=== PATIENT | male | born 1940 | race Caucasian/White ===

== ENCOUNTER 2016-06-10 23:02 | Inpatient (IN) | payer MEDICARE ==
[~2016-06-10] VITALS: Ht 172.7 cm; Wt 93.0 kg
[~2016-06-10 23:02] MED LIST: AMOX1TAB61 PO; APIX5TAB PO; CEPH-263 PO; FLUT1DIS IH; FURO-68 PO; INSU100V5 SQ; LORA0.5T PO; LOSA50TA6 PO; NPH,100V SQ; POTA10CA PO; SIMV40TA3 PO; TAMS0.4C2 PO; Vancomycin Hcl PO; ZOLP5TAB5 PO
--- NOTE | 2016-06-10 23:40 | PHYS DOC ---
Past Medical History Past Medical History: Diabetes-Type II, High Cholesterol Additional Past Medical Histor: multiple hip dislocations, DVT behind left knee , PE, C DIFF, SBO Past Surgical History: Colectomy, Hip Replacement Additional Past Surgical Histo: left hip, expl la with enterotomy and foreign body removal,back, cataract Alcohol Use: None Drug Use: None Adult General Chief Complaint Chief Complaint: LOWER EXT PAIN HPI HPI Patient is a 75 year old male who presents with atraumatic right leg pain that started a few hours prior to arrival while walking at home. He denies injury. Pain is constant and achy, but worse with use of leg. States his whole leg hurts. He notes mild general abdominal swelling over the past 2 days with minimal discomfort. States he is able to eat and drink. Notes normal BMs and urination. He denies numbness, tingling, weakness, back pain, swelling from baseline chronic swelling, rash, fever or chills, bloody stools. Continues to take eliquis for DVT/PE history. Review of Systems Review of Systems Constitutional: Denies fever or chills [] Eyes: Denies change in visual acuity, redness, or eye pain [] HENT: Denies nasal congestion or sore throat [] Respiratory: Denies cough or shortness of breath [] Cardiovascular: No additional information not addressed in HPI [] GI: Denies abdominal pain, nausea, vomiting, bloody stools or diarrhea [] : Denies dysuria or hematuria [] Musculoskeletal: Denies back pain or joint pain [] Integument: Denies rash or skin lesions [] Neurologic: Denies headache, focal weakness or sensory changes [] Endocrine: Denies polyuria or polydipsia [] Current Medications Current Medications Current Medications Medications (Trade) Dose Ordered Sig/[place] Start Time Stop Time Status Last Admin Dose Admin Fentanyl Citrate (Fentanyl 2ml Vial) 25 mcg PRN Q15MIN PRN 06/10/16 23:30 06/11/16 23:29 06/11/16 00:08 25 MCG Info (Do NOT chart on this entry -- for MONITORING) 1 each PRN DAILY PRN 06/11/16 01:30 06/13/16 01:29 Iohexol (Omnipaque 300 Mg/ml) 60 ml 1X ONCE 06/11/16 01:30 06/11/16 01:31 DC 06/11/16 01:06 60 ML Allergies Allergies Allergies Coded Allergies Type Severity Reaction Last Updated Verified No Known Drug Allergies 07/30/13 No Physical Exam Physical Exam Constitutional: Well developed, well nourished, no acute distress, non-toxic appearance. [] HENT: Normocephalic, atraumatic, bilateral external ears normal, oropharynx moist, nose normal. [] Eyes: PERRLA, EOMI. [] Neck: Normal range of motion, supple. [] Cardiovascular:Heart rate regular rhythm [] Lungs & Thorax: Bilateral breath sounds clear to auscultation [] Abdomen: Bowel sounds normal, soft, no tenderness. Midline surgical scar well appearing. Rectal exam nontender with minimal light brown stool in vault [] Skin: Warm, dry, no erythema, no rash. [] Back: No tenderness, no CVA tenderness. [] Extremities: Has well appearing ulcer to right heel, No discoloration, No tenderness other than to heel ulcer, ROM intact, bilateral 2+ LE edema, bilateral DP pulses equal and 2+. Compartments soft to bilateral lower extremities. [] Neurologic: Alert and oriented X 3, normal motor function, normal sensory function, no focal deficits noted. [] Psychologic: Affect normal, judgement normal, mood normal. [] Current Patient Data Vital Signs Vital Signs Date Time Temp Pulse Resp B/P Pulse Ox O2 Delivery O2 Flow Rate FiO2 06/11/16 01:30 79 24 119/55 95 Nasal Cannula 2 06/10/16 23:15 99.1 99.1 Lab Values Laboratory Tests Test 06/11/16 00:05 06/11/16 00:45 White Blood Count 20.1x10^3/uL (4.0-11.0) H 18.7x10^3/uL (4.0-11.0) H Red Blood Count 2.19x10^6/uL (4.30-5.70) L 2.07x10^6/uL (4.30-5.70) L Hemoglobin 5.0g/dL (13.0-17.5) *L 4.9g/dL (13.0-17.5) *L Hematocrit 16.5% (39.0-53.0) *L 15.8% (39.0-53.0) *L Mean Corpuscular Volume 76fL (79-100) L 76fL (79-100) L Mean Corpuscular Hemoglobin 23pg (25-35) L 24pg (25-35) L Mean Corpuscular Hemoglobin Concent 30g/dL (31-37) L 31g/dL (31-37) Red Cell Distribution Width 19.2% (11.5-14.5) H 19.4% (11.5-14.5) H Platelet Count 302x10^3/uL (140-400) 273x10^3/uL (140-400) Neutrophils (%) (Auto) 82% (31-73) H 80% (31-73) H Lymphocytes (%) (Auto) 8% (24-48) L 9% (24-48) L Monocytes (%) (Auto) 10% (0-9) H 10% (0-9) H Eosinophils (%) (Auto) 0% (0-3) 0% (0-3) Basophils (%) (Auto) 0% (0-3) 0% (0-3) Neutrophils # (Auto) 16.4x10^3uL (1.8-7.7) H 15.1x10^3uL (1.8-7.7) H Lymphocytes # (Auto) 1.6x10^3/uL (1.0-4.8) 1.7x10^3/uL (1.0-4.8) Monocytes # (Auto) 2.0x10^3/uL (0.0-1.1) H 1.9x10^3/uL (0.0-1.1) H Eosinophils # (Auto) 0.0x10^3/uL (0.0-0.7) 0.0x10^3/uL (0.0-0.7) Basophils # (Auto) 0.1x10^3/uL (0.0-0.2) 0.1x10^3/uL (0.0-0.2) Segmented Neutrophils % 88% (35-66) H Lymphocytes % 7% (24-48) L Monocytes % 5% (0-10) Platelet Estimate Adequate (ADEQUATE) Polychromasia Slight Hypochromasia Mod Poikilocytosis Mod Anisocytosis Slight Target Cells Occ Schistocytes Few Sodium Level 143mmol/L (136-145) Potassium Level 4.2mmol/L (3.5-5.1) Chloride Level 106mmol/L (98-107) Carbon Dioxide Level 28mmol/L (21-32) Anion Gap 9 (6-14) Blood Urea Nitrogen 46mg/dL (8-26) H Creatinine 1.2mg/dL (0.7-1.3) Estimated GFR (Cockcroft-Gault) 59.0 Glucose Level 103mg/dL (70-99) H Calcium Level 8.0mg/dL (8.5-10.1) L Creatine Kinase 120U/L (39-308) Prothrombin Time 30.7SEC (11.7-14.0) H Prothrombin Time INR 3.2 (0.8-1.1) H PTT 59SEC (24-38) H Stool Occult Blood Negative (NEG) Lactic Acid Level 1.8mmol/L (0.4-2.0) Laboratory Tests 06/11/16 00:05 06/11/16 00:45 Laboratory Tests 06/11/16 00:05 Radiology/Procedures Radiology/Procedures CT abdomen and pelvis with IV contrast Impression: Small right pleural effusion. No acute abnormality in the abdomen or pelvis is identified on today's study. Electronically signed by: Bernard Conway MD (Jun 11, 2016 01:26:49) Ultrasound venous doppler right lower extremity Impression: No evidence of right lower extremity DVT. Electronically signed by: Bernard Conway MD (Jun 11, 2016 04:29:39) Course & Med Decision Making Course & Med Decision Making Pertinent Labs and Imaging studies reviewed. (See chart for details) Has anemia of unknown cause with elevated INR. Imaging is unremarkable. and patient agree to blood transfusion and have signed consent form. Discussed case with Dr. Etaon, national account director for Dr. Stephenson, who will admit. Dragon Disclaimer Dragon Disclaimer This electronic medical record was generated, in whole or in part, using a voice recognition dictation system. Departure Departure Impression: Primary Impression: Anemia Additional Impressions: Abdominal pain Right leg pain Disposition: ADMITTED INPATIENT Condition: STABLE Referrals: AUBRIE TIRADO Jr, MD (PCP) Problem Qualifiers Primary Impression: Anemia Anemia type: unspecified type Qualified Code: D64.9 - Anemia, unspecified Additional Impressions: Abdominal pain Abdominal location: generalized Qualified Code: R10.84 - Generalized abdominal pain Ganga PEREZ MD Jun 10, 2016 23:40
[2016-06-11] VITALS (18 sets, daily range): BP systolic 102–121; BP diastolic 39–56
[2016-06-11] MEDS: FENTANYL PF 100 MCG/2 ML VIAL. IV PRN ×5 (00:08→20:02)
[2016-06-11 00:19] LABS: BASO # 0.1 x10^3/uL (0.0-0.2); BASO % 0 % (0-3); EOS % 0 % (0-3); LYMPH # 1.6 x10^3/uL (1.0-4.8); LYMPH % 8 % (24-48); MEAN CORPUSCULAR HEMOGLOBIN 23 pg (25-35); MEAN CORPUSCULAR HGB CONC 30 g/dL (31-37); MEAN CORPUSCULAR VOLUME 76 fL (79-100); MONO % 10 % (0-9); NEUT % 82 % (31-73); PLATELET COUNT 302 x10^3/uL (140-400); RED BLOOD COUNT 2.19 x10^6/uL (4.30-5.70); RED CELL DISTRIBUTION WIDTH 19.2 % (11.5-14.5); WHITE BLOOD COUNT 20.1 x10^3/uL (4.0-11.0)
[2016-06-11 00:20] LABS: HEMATOCRIT 16.5 % (39.0-53.0)
[2016-06-11 00:27] LABS: CREATININE 1.2 mg/dL (0.7-1.3); POTASSIUM 4.2 mmol/L (3.5-5.1)
[2016-06-11 00:58] LABS: PLT ESTIMATE ADEQUATE (ADEQUATE)
[2016-06-11 00:59] LABS: ANISOCYTOSIS SLIGHT; HYPOCHROMIA MOD; POIKILOCYTOSIS MOD; POLYCHROMASIA SLIGHT; SCHISTOCYTES FEW; TARGET CELLS OCC
[2016-06-11 01:04] LABS: BASO # 0.1 x10^3/uL (0.0-0.2); BASO % 0 % (0-3); EOS % 0 % (0-3); LYMPH # 1.7 x10^3/uL (1.0-4.8); LYMPH % 9 % (24-48); MEAN CORPUSCULAR HEMOGLOBIN 24 pg (25-35); MEAN CORPUSCULAR HGB CONC 31 g/dL (31-37); MEAN CORPUSCULAR VOLUME 76 fL (79-100); MONO % 10 % (0-9); NEUT % 80 % (31-73); PLATELET COUNT 273 x10^3/uL (140-400); RED BLOOD COUNT 2.07 x10^6/uL (4.30-5.70); RED CELL DISTRIBUTION WIDTH 19.4 % (11.5-14.5); WHITE BLOOD COUNT 18.7 x10^3/uL (4.0-11.0)
[2016-06-11 01:08] LABS: NEG OBC FOB NEG; POS OBC FOB POS
[2016-06-11 01:09] LABS: HEMATOCRIT 15.8 % (39.0-53.0); HEMOGLOBIN 4.9 g/dL (13.0-17.5)
--- NOTE | 2016-06-11 01:28 | RAD ---
CT abdomen and pelvis with IV contrast only Indication: Abdominal swelling and low hemoglobin. Axial imaging through the abdomen and pelvis was performed after the administration of intravenous contrast. Correlation is made with prior CT from 02/10/2016. There is a small right pleural effusion. There is a calcified granuloma in the right lower lobe. The liver is unremarkable. The gallbladder demonstrates some [id number] distention. No stones are seen. The pancreas and spleen are unremarkable. No adrenal mass is identified. The kidneys are unremarkable. Aorta and iliac vessels are heavily calcified but not aneurysmal. The small and large bowel loops appear to be normal caliber on today's study. No definite obstruction is seen. There is no free fluid. The bladder is moderately distended and contains diverticuli rising from the right and left bladder tirado. There are postop changes of a left hip arthroplasty producing a large amount of artifact. Impression: Small right pleural effusion. No acute abnormality in the abdomen or pelvis is identified on today's study. Electronically signed by: Bernard Conway MD (Jun 11, 2016 01:26:49)
[2016-06-11] MEDS ORDERED: CONTRAST GIVEN MC PRN (01:30)
[2016-06-11] MEDS ORDERED: IOHEXOL 300 MG/ML 75 ML VIAL IV ONE (01:30)
[2016-06-11] MEDS ORDERED: ONDANSETRON PF 4 MG/2 ML VIAL. IV PRN (03:15)
[2016-06-11] MEDS ORDERED: ACETAMINOPHEN 325 MG TABLET. PO PRN (03:15)
[2016-06-11 04:18] LABS: INR 3.2 (0.8-1.1); PROTHROMBIN TIME PATIENT 30.7 SEC (11.7-14.0)
--- NOTE | 2016-06-11 04:31 | RAD ---
Venous lower extremity right Indication: Right foot and heel pain. The patient has a nonhealing ulcer on the right foot as well as chronic swelling of the legs. Grayscale, color flow and duplex Doppler evaluation of the right lower extremity deep venous system was performed. There is no evidence of a right lower extremity DVT. The right lower extremity deep venous system shows normal compressibility with normal response to augmentation and Valsalva. No fluid collection is seen. Impression: No evidence of right lower extremity DVT. Electronically signed by: Bernard Conway MD (Jun 11, 2016 04:29:39)
[2016-06-11] MEDS ORDERED: DEXTROSE 50% 25 GM / 50ML DISP.SYRIN. IV PRN (08:45)
--- NOTE | 2016-06-11 08:53 | PDOC1 ---
History and Physical Date of Admission Date of Admission DATE: 06/11/16 Identification/Chief Complaint Chief Complaint Right foot pain Source Source: Patient History of Present Illness History of Present Illness Pt presented to the ER complaining of right foot pain. He has a non healing diabetic foot ulcer. He was incidentally found to have a Hb of 5 and significantly elevated WBC. Pt appears to have dementia, but says that he has overall been feeling well. He has not been dizzy, has not noticed any bleeding. Past Medical History Cardiovascular: HTN Pulmonary: COPD GI: No pertinent hx Heme/Onc: No pertinent hx Hepatobiliary: No pertinent hx Psych: No pertinent hx Musculoskeletal: low back pain Rheumatologic: No pertinent hx Infectious disease: No pertinent hx, Other ENT: No pertinent hx Renal/: No pertinent hx Endocrine: Diabetes Dermatology: No pertinent hx Past Surgical History Past Surgical History: Cataract Removal, Other (bowel obstruction repair, back surgery, exploratory laparotomy) Family History Family History: Heart Disease Social History Smoke: 1 pack per day ALCOHOL: none Drugs: None Current Problem List Problem List Problems Medical Problems: (1) Abdominal pain Status: Acute (2) Anemia Status: Acute (3) Right leg pain Status: Acute Problems: Current Medications Current Medications Current Medications Fentanyl Citrate (Fentanyl 2ml Vial) 25 mcg PRN Q15MIN PRN IV PAIN GREATER THAN 3/10 Last administered on 06/11/16 00:08; Start 06/10/16 at 23:30; Stop at 23:29 Iohexol (Omnipaque 300 Mg/ml) 60 ml 1X ONCE IV Last administered on 06/11/16 01:06; Start 06/11/16 at 01:30; Stop 06/11/16 at 01:31; Status DC Info (Do NOT chart on this entry -- for MONITORING) 1 each PRN DAILY PRN MC SEE COMMENTS; Start 06/11/16 at 01:30; Stop 06/13/16 at 01:29 Ondansetron HCl (Zofran) 4 mg PRN Q8HRS PRN IV NAUSEA/VOMITING; Start 06/11/16 at 03:15; Stop 06/12/16 at 03:14 Fentanyl Citrate (Fentanyl 2ml Vial) 50 mcg PRN Q2HR PRN IV PAIN Last administered on 06/11/16 06:37; Start 06/11/16 at 03:15; Stop 06/12/16 at 03:14 Acetaminophen (Tylenol) 650 mg PRN Q4HRS PRN PO FEVER; Start 06/11/16 at 03:15 ; Stop 06/12/16 at 03:14 Insulin Aspart (Novolog) 0-7 UNITS TIDWMEALS SQ ; Start 06/11/16 at 09:00 Dextrose 12.5 gm PRN Q15MIN PRN IV SEE COMMENTS; Start 06/11/16 at 08:45 Active Scripts Active Keflex (Cephalexin) 250 Mg Capsule 2 Cap PO QID 10 Days Advair 100-50 Diskus (Fluticasone/Salmeterol) 1 Each Disk.w.dev 1 Puff IH BID [Vancomycin Hcl] 125 MG/2.5 ML Solution 125 Mg PO [id number] Reported Zolpidem Tartrate 5 Mg Tablet 5 Mg PO PRN QHS PRN Tamsulosin Hcl 0.4 Mg Cap.er.24h 0.4 Mg PO QHS Simvastatin 40 Mg Tablet 1 Tab PO QHS Potassium Chloride 10 Meq Capsule.er 10 Meq PO DAILY Losartan Potassium 50 Mg Tablet 50 Mg PO HS Lorazepam 0.5 Mg Tablet 0.5 Mg PO PRN Q6HRS PRN Lasix (Furosemide) 40 Mg Tablet 40 Mg PO DAILY Humulin R (Insulin Regular, Human) 100 Unit/1 Ml Vial 100 Unit SQ TIDAC Humulin N (Nph, Human Insulin Isophane) 100 Unit/1 Ml Vial 100 Unit SQ DAILYBFRLUN Humulin N (Nph, Human Insulin Isophane) 100 Unit/1 Ml Vial 100 Unit SQ DAILYBFRSUP Eliquis (Apixaban) 5 Mg Tablet 5 Mg PO BID Augmentin 875-125 Tablet (Amoxicillin/Potassium Clav) 1 Each Tablet 1 Tab PO BID Allergies Allergies: Coded Allergies: No Known Drug Allergies (Unverified , 07/30/13) ROS General: No: Chills, Night Sweats PSYCHOLOGICAL ROS: No: Anxiety, Depression Eyes: No Decreased vision, No Eye Pain HEENT: No: Nasal congestion, Sore Throat ALLERGY AND IMMUNOLOGY: No: Hives, Post Nasal Drip Hematological and Lymphatic: No: Bleeding Problems, Blood Clots Respiratory: No: Shortness of breath, Sputum Changes, Wheezing Cardiovascular: No Chest Pain, No Edema, No Palpitations Gastrointestinal: No Abdominal Pain, No Constipation, No Diarrhea, No Nausea, No Vomiting Genitourinary: No Dysuria, No Urgency Musculoskeletal: Yes Joint Pain, No Muscle Pain Neurological: No Impaired Coord/balance, No Numbness/Tingling, No Weakness Skin: Yes Rash, Yes Skin Lesion Changes Physical Exam General: Alert, Cooperative, No acute distress, Other (oriented to person and place) HEENT: Atraumatic, PERRLA, EOMI, Mucous membr. moist/pink Lungs: Normal air movement, Other (diminished breath sounds LLL) Heart: RRR, no rubs, no gallops, no murmurs Abdomen: Normal bowel sounds, Soft, No tenderness, No hepatosplenomegaly Extremities: No clubbing, No cyanosis, Other (2+ pitting edema LE bilaterally, erythema present LE bilaterally to knees, warm to touch, 2cm diameter ulcer bottom of right foot, area TTP) Skin: Other (erythematous rash in pt's groin) Neuro: Normal speech, Cranial nerves 3-12 NL Psych/Mental Status: Mental status NL, Mood NL Vitals Vitals Vital Signs Date Time Temp Pulse Resp B/P Pulse Ox O2 Delivery O2 Flow Rate FiO2 06/11/16 07:00 99.6 71 20 107/44 92 Nasal Cannula 2.0 99.6 Labs Labs Laboratory Tests Test 06/11/16 00:05 06/11/16 00:45 06/11/16 07:53 White Blood Count 20.1x10^3/uL (4.0-11.0) 18.7x10^3/uL (4.0-11.0) Red Blood Count 2.19x10^6/uL (4.30-5.70) 2.07x10^6/uL (4.30-5.70) Hemoglobin 5.0g/dL (13.0-17.5) 4.9g/dL (13.0-17.5) Hematocrit 16.5% (39.0-53.0) 15.8% (39.0-53.0) Mean Corpuscular Volume 76fL (79-100) 76fL (79-100) Mean Corpuscular Hemoglobin 23pg (25-35) 24pg (25-35) Mean Corpuscular Hemoglobin Concent 30g/dL (31-37) 31g/dL (31-37) Red Cell Distribution Width 19.2% (11.5-14.5) 19.4% (11.5-14.5) Platelet Count 302x10^3/uL (140-400) 273x10^3/uL (140-400) Neutrophils (%) (Auto) 82% (31-73) 80% (31-73) Lymphocytes (%) (Auto) 8% (24-48) 9% (24-48) Monocytes (%) (Auto) 10% (0-9) 10% (0-9) Eosinophils (%) (Auto) 0% (0-3) 0% (0-3) Basophils (%) (Auto) 0% (0-3) 0% (0-3) Neutrophils # (Auto) 16.4x10^3uL (1.8-7.7) 15.1x10^3uL (1.8-7.7) Lymphocytes # (Auto) 1.6x10^3/uL (1.0-4.8) 1.7x10^3/uL (1.0-4.8) Monocytes # (Auto) 2.0x10^3/uL (0.0-1.1) 1.9x10^3/uL (0.0-1.1) Eosinophils # (Auto) 0.0x10^3/uL (0.0-0.7) 0.0x10^3/uL (0.0-0.7) Basophils # (Auto) 0.1x10^3/uL (0.0-0.2) 0.1x10^3/uL (0.0-0.2) Segmented Neutrophils % 88% (35-66) Lymphocytes % 7% (24-48) Monocytes % 5% (0-10) Platelet Estimate Adequate (ADEQUATE) Polychromasia Slight Hypochromasia Mod Poikilocytosis Mod Anisocytosis Slight Target Cells Occ Schistocytes Few Sodium Level 143mmol/L (136-145) Potassium Level 4.2mmol/L (3.5-5.1) Chloride Level 106mmol/L (98-107) Carbon Dioxide Level 28mmol/L (21-32) Anion Gap 9 (6-14) Blood Urea Nitrogen 46mg/dL (8-26) Creatinine 1.2mg/dL (0.7-1.3) Estimated GFR (Cockcroft-Gault) 59.0 Glucose Level 103mg/dL (70-99) Calcium Level 8.0mg/dL (8.5-10.1) Creatine Kinase 120U/L (39-308) Prothrombin Time 30.7SEC (11.7-14.0) Prothromb Time International Ratio 3.2 (0.8-1.1) Activated Partial Thromboplast Time 59SEC (24-38) Stool Occult Blood Negative (NEG) Lactic Acid Level 1.8mmol/L (0.4-2.0) Glucose (Fingerstick) 91mg/dL (70-99) Laboratory Tests Test 06/11/16 00:05 06/11/16 00:45 06/11/16 07:53 White Blood Count 20.1x10^3/uL (4.0-11.0) 18.7x10^3/uL (4.0-11.0) Red Blood Count 2.19x10^6/uL (4.30-5.70) 2.07x10^6/uL (4.30-5.70) Hemoglobin 5.0g/dL (13.0-17.5) 4.9g/dL (13.0-17.5) Hematocrit 16.5% (39.0-53.0) 15.8% (39.0-53.0) Mean Corpuscular Volume 76fL (79-100) 76fL (79-100) Mean Corpuscular Hemoglobin 23pg (25-35) 24pg (25-35) Mean Corpuscular Hemoglobin Concent 30g/dL (31-37) 31g/dL (31-37) Red Cell Distribution Width 19.2% (11.5-14.5) 19.4% (11.5-14.5) Platelet Count 302x10^3/uL (140-400) 273x10^3/uL (140-400) Neutrophils (%) (Auto) 82% (31-73) 80% (31-73) Lymphocytes (%) (Auto) 8% (24-48) 9% (24-48) Monocytes (%) (Auto) 10% (0-9) 10% (0-9) Eosinophils (%) (Auto) 0% (0-3) 0% (0-3) Basophils (%) (Auto) 0% (0-3) 0% (0-3) Neutrophils # (Auto) 16.4x10^3uL (1.8-7.7) 15.1x10^3uL (1.8-7.7) Lymphocytes # (Auto) 1.6x10^3/uL (1.0-4.8) 1.7x10^3/uL (1.0-4.8) Monocytes # (Auto) 2.0x10^3/uL (0.0-1.1) 1.9x10^3/uL (0.0-1.1) Eosinophils # (Auto) 0.0x10^3/uL (0.0-0.7) 0.0x10^3/uL (0.0-0.7) Basophils # (Auto) 0.1x10^3/uL (0.0-0.2) 0.1x10^3/uL (0.0-0.2) Segmented Neutrophils % 88% (35-66) Lymphocytes % 7% (24-48) Monocytes % 5% (0-10) Platelet Estimate Adequate (ADEQUATE) Polychromasia Slight Hypochromasia Mod Poikilocytosis Mod Anisocytosis Slight Target Cells Occ Schistocytes Few Sodium Level 143mmol/L (136-145) Potassium Level 4.2mmol/L (3.5-5.1) Chloride Level 106mmol/L (98-107) Carbon Dioxide Level 28mmol/L (21-32) Anion Gap 9 (6-14) Blood Urea Nitrogen 46mg/dL (8-26) Creatinine 1.2mg/dL (0.7-1.3) Estimated GFR (Cockcroft-Gault) 59.0 Glucose Level 103mg/dL (70-99) Calcium Level 8.0mg/dL (8.5-10.1) Creatine Kinase 120U/L (39-308) Prothrombin Time 30.7SEC (11.7-14.0) Prothromb Time International Ratio 3.2 (0.8-1.1) Activated Partial Thromboplast Time 59SEC (24-38) Stool Occult Blood Negative (NEG) Lactic Acid Level 1.8mmol/L (0.4-2.0) Glucose (Fingerstick) 91mg/dL (70-99) VTE Prophylaxis Ordered VTE Prophylaxis Devices: Yes VTE Pharmacological Prophylaxi: No Assessment/Plan Assessment/Plan Pt is a 75yo CM admitted for acute anemia 1)Acute anemia- pt's Hb last hospitalization was normal. He denies any active bleeding. Hb on admission was 5. Asymptomatic. Pt receiving 4 units PRBCs. FOBT negative. GI consulted 2)Dementia 3)Sepsis- blood cultures ordered, wound cultures ordered. Pt has diabetic ulcer bottom of right foot with cellulitis. Started on Vancomycin and Zosyn. WBC on admission was 20.1 with low grade fevers. Consider ID consult if pt is not improving 4)Diabetic foot ulcer- arterial study ordered, wound care nurse consult ordered 5)Hx DVT/PE- pt normally on Eliquis which is currently being held. Pt's INR was 3.2 on admission 6)Chronic respiratory failure- 2/2 COPD. Pt normally on 2L O2 at home. Normally on Advair 7)Chronic peripheral edema- pt normally on Lasix. Will hold for now given pt's hypotension. 8)HTN- pt currently hypotensive. Will hold his Losartan and Lasix 9)DM2- it appears that pt is normally on insulin, but do not have pt's medication list and is currently normo glycemic. Will start SSI and monitor blood sugars 10)HLD- currently holding pt's Simvastatin BRITTNEY MYERS MD Jun 11, 2016 08:53
[2016-06-11] MEDS ORDERED: VANCOMYCIN 2 GM in IV NORMAL SALINE 500ML BAG 500 ML IV ONE (09:00)
[2016-06-11] MEDS ORDERED: NON FORMULARY ITEM (Fluticasone/Salmeterol (Advair 100-50 Diskus) 1 PUFF) IH SCH (09:00)
[2016-06-11] MEDS: INSULIN ASPART 300 UNITS/3 ML INSULN.PEN SQ SCH ×3 (09:00→17:00)
[2016-06-11] MEDS ORDERED: FUROSEMIDE 40 MG/4 ML VIAL IVP ONE (09:00)
[2016-06-11] MEDS: BUDESONIDE 0.5 MG/2 ML NEBU NEB SCH ×2 (09:30→20:59)
--- NOTE | 2016-06-11 10:00 | ACF ---
Admission Forms Criteria ANEMIA, IRON DEFICIENCY OR UNSPECIFIED Clinical Indications for Inpatient Care (Place 'X' for any and all applicable criteria): Admission is indicated for ANY ONE of the following(1)(2)(3)(4)(5)(6)(7): [X] I. Inpatient admission required rather than observation care (Also use Anemia, Iron Deficiency or Unspecified: Observation Care guideline as appropriate) because of ANY ONE of the following: [] a) Hemodynamic instability that is severe or persistent [] b) Active bleeding that cannot be rapidly controlled [] c) CVS symptoms (i.e., dyspnea, chest pain, heart failure) that are severe or persistent [] d) Neurologic symptoms (i.e., cognitive impairment, recurrent syncope or near syncope) that are severe or persistent [] e) Cardiac arrhythmias of immediate concern [] f) Acute peripheral ischemia (e.g., pulseless, cool, mottled, or cyanotic extremity) [] g) High-risk low platelet count [] h) Acute renal failure [X] i) Ongoing transfusion for blood loss (greater than 2 units) [] j) IV fluid to replace significant ongoing (eg, >24 hours) losses (> 3 L/m2 per day) [] k) Pulmonary artery catheter monitoring [] l) Supplemental oxygen or respiratory treatments for over 24 hours that are performable only in acute inpatient setting [] m) Immediate inpatient surgery [] n) Other condition, treatment or monitoring requiring inpatient admission [] II Active massive hemorrhage [] III. Active hemolysis with rapidly progressive anemia [A](6) Extended stay beyond goal length of stay may be needed for (17)(18) []a) Diagnosed cause of anemia requiring longer hospitalization (eg, active GI bleeding, immune hemolysis requiring electrophoresis, complications of malignancy requiring acute care []b) Continued emergent anemia indicators (23) []c) Transfusion reactions []d) Associated leukopenia or thrombocytopenia needing inpatient care []e) Active comorbidities (eg, renal failure, heart failure) The original [facility] Care [facility] content created by [facility] has been revised. The portions of the content which have been revised are identified through the use of italic text or in bold. [facility] Guidelines has neither reviewed nor approved the modified material. All other unmodified content is copyright [facility] Care Guidelines. Please see references footnoted in the original [facility] edition 2016 Admission Criteria Met?: Yes GREGORY ELIAS Jun 11, 2016 10:00
--- NOTE | 2016-06-11 10:13 | PDOC2 ---
GI CONSULT Date Date/Time DATE: 06/11/16 TIME: 10:03 Providers Attending Physician Trip Stephenson MD Referring Physician Consulting Physician Dr. Johansen History of Present Illness HPI 75 yo WM- presents with weakness and foot ulcer- found to have Hgb 5 and WBC of 20,000. INR 3.2 Hx of normal Hgb in January. No history of bleeding- on melena, hematochezia as far as patient knows, but he is slightly confused. No fever, cough. Does have easy bruisability. No prior colonoscopy as far as patient can remember. Did havd SB foreign body with SBO with surgery 02/2016 and prior C diff infection but denies diarrhea, n/v, abd pain, etc History Past Medical History DM, DVT, Hx of C diff, arthritis Past Surgical History hip surgery SBO with FB- resection BAck surgery Past Surgical History: Cataract Removal, Other (bowel obstruction repair, back surgery, exploratory laparotomy) Review of Systems Constitutional: yes: weakness Musculoskeletal: Yes: foot pain Allergies Allergies Allergies Coded Allergies Type Severity Reaction Last Updated Verified No Known Drug Allergies 07/30/13 No Medications Medications Current Medications Fentanyl Citrate (Fentanyl 2ml Vial) 25 mcg PRN Q15MIN PRN IV PAIN GREATER THAN 3/10 Last administered on 06/11/16 09:50; Start 06/10/16 at 23:30; Stop at 23:29 Iohexol (Omnipaque 300 Mg/ml) 60 ml 1X ONCE IV Last administered on 06/11/16 01:06; Start 06/11/16 at 01:30; Stop 06/11/16 at 01:31; Status DC Info (Do NOT chart on this entry -- for MONITORING) 1 each PRN DAILY PRN MC SEE COMMENTS; Start 06/11/16 at 01:30; Stop 06/13/16 at 01:29 Ondansetron HCl (Zofran) 4 mg PRN Q8HRS PRN IV NAUSEA/VOMITING; Start 06/11/16 at 03:15; Stop 06/12/16 at 03:14 Fentanyl Citrate (Fentanyl 2ml Vial) 50 mcg PRN Q2HR PRN IV PAIN Last administered on 06/11/16 06:37; Start 06/11/16 at 03:15; Stop 06/12/16 at 03:14 Acetaminophen (Tylenol) 650 mg PRN Q4HRS PRN PO FEVER; Start 06/11/16 at 03:15 ; Stop 06/12/16 at 03:14 Insulin Aspart (Novolog) 0-7 UNITS TIDWMEALS SQ ; Start 06/11/16 at 09:00 Dextrose 12.5 gm PRN Q15MIN PRN IV SEE COMMENTS; Start 06/11/16 at 08:45 Vancomycin HCl 1 each 1 each PRN DAILY PRN MC SEE COMMENTS; Start 06/11/16 at 08:45 Piperacillin Sod/ Tazobactam Sod 3.375 gm/Sodium Chloride 50 ml @ 100 mls/hr Q6HRS IV ; Start 06/11/16 at 12:00 Vancomycin HCl/ Sodium Chloride (Iv Sodium Chloride 0.9% 500ml Bag) 500 ml @ 250 mls/hr 1X ONCE IV ; Start 06/11/16 at 09:00; Stop 06/11/16 at 10:59 Non-Formulary Medication 1 puff BID IH ; Start 06/11/16 at 09:00; Stop 06/11/16 at 09:00; Status DC Furosemide (Lasix) 40 mg 1X ONCE IVP Last administered on 06/11/16t 09:49; Start 06/11/16 at 09:00; Stop 06/11/16 at 09:01; Status DC Budesonide (Pulmicort) 0.5 mg RTBID NEB ; Start 06/11/16 at 09:30 Albuterol Sulfate (Ventolin Neb Soln) 2.5 mg RTQID NEB ; Start 06/11/16 at 12:00 Active Scripts Active Advair 100-50 Diskus (Fluticasone/Salmeterol) 1 Each Disk.w.dev 1 Puff IH BID [Vancomycin Hcl] 125 MG/2.5 ML Solution 125 Mg PO [id number] Reported Zolpidem Tartrate 5 Mg Tablet 5 Mg PO PRN QHS PRN Tamsulosin Hcl 0.4 Mg Cap.er.24h 0.4 Mg PO QHS Simvastatin 40 Mg Tablet 1 Tab PO QHS Potassium Chloride 10 Meq Capsule.er 10 Meq PO DAILY Losartan Potassium 50 Mg Tablet 50 Mg PO HS Lorazepam 0.5 Mg Tablet 0.5 Mg PO PRN Q6HRS PRN Lasix (Furosemide) 40 Mg Tablet 40 Mg PO DAILY Humulin R (Insulin Regular, Human) 100 Unit/1 Ml Vial 100 Unit SQ TIDAC Humulin N (Nph, Human Insulin Isophane) 100 Unit/1 Ml Vial 100 Unit SQ DAILYBFRLUN Humulin N (Nph, Human Insulin Isophane) 100 Unit/1 Ml Vial 100 Unit SQ DAILYBFRSUP Eliquis (Apixaban) 5 Mg Tablet 5 Mg PO BID Physical Exam Physical Exam VSS awake, slightly confused chest- clear Cor- RRR abd soft non tender no masses extrem- ulcer with dressing right foot Neuro- awake, no focal deficits Labs Labs Laboratory Tests Test 06/11/16 00:05 06/11/16 00:45 06/11/16 07:53 White Blood Count 20.1x10^3/uL (4.0-11.0) 18.7x10^3/uL (4.0-11.0) Red Blood Count 2.19x10^6/uL (4.30-5.70) 2.07x10^6/uL (4.30-5.70) Hemoglobin 5.0g/dL (13.0-17.5) 4.9g/dL (13.0-17.5) Hematocrit 16.5% (39.0-53.0) 15.8% (39.0-53.0) Mean Corpuscular Volume 76fL (79-100) 76fL (79-100) Mean Corpuscular Hemoglobin 23pg (25-35) 24pg (25-35) Mean Corpuscular Hemoglobin Concent 30g/dL (31-37) 31g/dL (31-37) Red Cell Distribution Width 19.2% (11.5-14.5) 19.4% (11.5-14.5) Platelet Count 302x10^3/uL (140-400) 273x10^3/uL (140-400) Neutrophils (%) (Auto) 82% (31-73) 80% (31-73) Lymphocytes (%) (Auto) 8% (24-48) 9% (24-48) Monocytes (%) (Auto) 10% (0-9) 10% (0-9) Eosinophils (%) (Auto) 0% (0-3) 0% (0-3) Basophils (%) (Auto) 0% (0-3) 0% (0-3) Neutrophils # (Auto) 16.4x10^3uL (1.8-7.7) 15.1x10^3uL (1.8-7.7) Lymphocytes # (Auto) 1.6x10^3/uL (1.0-4.8) 1.7x10^3/uL (1.0-4.8) Monocytes # (Auto) 2.0x10^3/uL (0.0-1.1) 1.9x10^3/uL (0.0-1.1) Eosinophils # (Auto) 0.0x10^3/uL (0.0-0.7) 0.0x10^3/uL (0.0-0.7) Basophils # (Auto) 0.1x10^3/uL (0.0-0.2) 0.1x10^3/uL (0.0-0.2) Segmented Neutrophils % 88% (35-66) Lymphocytes % 7% (24-48) Monocytes % 5% (0-10) Platelet Estimate Adequate (ADEQUATE) Polychromasia Slight Hypochromasia Mod Poikilocytosis Mod Anisocytosis Slight Target Cells Occ Schistocytes Few Sodium Level 143mmol/L (136-145) Potassium Level 4.2mmol/L (3.5-5.1) Chloride Level 106mmol/L (98-107) Carbon Dioxide Level 28mmol/L (21-32) Anion Gap 9 (6-14) Blood Urea Nitrogen 46mg/dL (8-26) Creatinine 1.2mg/dL (0.7-1.3) Estimated GFR (Cockcroft-Gault) 59.0 Glucose Level 103mg/dL (70-99) Calcium Level 8.0mg/dL (8.5-10.1) Creatine Kinase 120U/L (39-308) Prothrombin Time 30.7SEC (11.7-14.0) Prothromb Time International Ratio 3.2 (0.8-1.1) Activated Partial Thromboplast Time 59SEC (24-38) Stool Occult Blood Negative (NEG) Lactic Acid Level 1.8mmol/L (0.4-2.0) Glucose (Fingerstick) 91mg/dL (70-99) Assessment Assessment Anemia- normal Hgb in January- now with Hgb of 5 with low MCV and negative stool hemocult and no history of overt bleeding- on blood thinner for DVT- likely with occult GI loss over last few months- certainly chronic anemia but no recent if ever, colonoscopy. Elevated WBC- source ? from ulcer? need to monitor and evaluate Elevated INR- suggests excessive Eliquis effect- holding med and monitor- need to see drop before starting bowel prep Problems: Plan Plan CLD Transfusion to Hgb over 8 Antibiotics and monitor WBC Hold Eliquis and monitor INR Plan EGD and colonoscopy once these issues resolved Thank you for allowing us to participate in the care of your patient. We will continue to follow the patient with you and provide an appropriate recommendation as it becomes available. [place] J[place]ANS[place] MD Jun 11, 2016 10:13
[2016-06-11] MEDS: VANCOMYCIN PER PHARMACY MC PRN (10:38)
[2016-06-11 11:10] LABS: BILIRUBIN,URINE NEGATIVE (NEG); GLUCOSE,URINE NEGATIVE (NEG); NITRITE,URINE NEGATIVE (NEG); PH,URINE 5.5; PROTEIN,URINE NEGATIVE (NEG-TRACE)
[2016-06-11] MEDS: ALBUTEROL SULFATE 2.5 MG/3 ML NEBU. NEB SCH ×3 (11:44→20:59)
[2016-06-11 12:06] LABS: RBC,URINE OCC /HPF (0-2)
[2016-06-11 12:07] LABS: BACTERIA,URINE FEW /HPF (0-FEW); SQUAMOUS EPITHELIAL CELL,UR OCC /LPF; WBC,URINE RARE /HPF (0-4)
--- NOTE | 2016-06-11 13:35 | RAD ---
EXAM: Right lower surgery arterial Doppler. HISTORY: Nonhealing right lower extremity ulcer. COMPARISON: None. FINDINGS: Grayscale and Doppler analysis of the right lower shotty arterial system was performed. There are triphasic waveforms within the right common femoral and likely proximal superficial femoral arteries. These become biphasic and monophasic more distally in the superficial femoral artery. There are monophasic in the popliteal artery and proximal trifurcation vessels. There is focally elevated peak systolic velocity at the origin of the right anterior tibial artery at 309 cm/s. The dorsalis previous artery is patent with monophasic flow. IMPRESSION: 1. Findings consistent with flow-limiting stenosis within the mid and distal superficial femoral artery. There are monophasic waveforms throughout the remainder of the right lower extremity. 2. More focal stenosis at the origin of the right anterior tibial artery.
[2016-06-11] MEDS: PIPERACILLIN/TAZOBACTAM 3.375 GM in IV NORMAL SALINE 50ML 50 ML IV SCH ×2 (14:22→17:25)
[2016-06-11 16:49] LABS: HEMATOCRIT 22.5 % (39.0-53.0); HEMOGLOBIN 7.1 g/dL (13.0-17.5); RED BLOOD COUNT 2.82 x10^6/uL (4.30-5.70); WHITE BLOOD COUNT 19.2 x10^3/uL (4.0-11.0)
[2016-06-12] VITALS (15 sets, daily range): BP systolic 106–132; BP diastolic 51–61
[2016-06-12] MEDS: PIPERACILLIN/TAZOBACTAM 3.375 GM in IV NORMAL SALINE 50ML 50 ML IV SCH ×4 (00:08→17:02)
[2016-06-12] MEDS: FENTANYL PF 100 MCG/2 ML VIAL. IV PRN ×2 (00:12→20:55)
[2016-06-12 04:50] LABS: BASO # 0.1 x10^3/uL (0.0-0.2); BASO % 0 % (0-3); EOS % 0 % (0-3); HEMATOCRIT 21.7 % (39.0-53.0); LYMPH # 1.6 x10^3/uL (1.0-4.8); LYMPH % 8 % (24-48); MEAN CORPUSCULAR HEMOGLOBIN 25 pg (25-35); MEAN CORPUSCULAR HGB CONC 32 g/dL (31-37); MEAN CORPUSCULAR VOLUME 78 fL (79-100); MONO % 10 % (0-9); NEUT % 81 % (31-73); PLATELET COUNT 260 x10^3/uL (140-400); RED BLOOD COUNT 2.79 x10^6/uL (4.30-5.70); RED CELL DISTRIBUTION WIDTH 19.3 % (11.5-14.5); WHITE BLOOD COUNT 20.5 x10^3/uL (4.0-11.0)
[2016-06-12 05:10] LABS: CALCIUM 7.9 mg/dL (8.5-10.1); CREATININE 1.1 mg/dL (0.7-1.3); GFR 65.3; POTASSIUM 3.4 mmol/L (3.5-5.1)
[2016-06-12] MEDS: BUDESONIDE 0.5 MG/2 ML NEBU NEB SCH ×2 (07:24→20:57)
[2016-06-12] MEDS: ALBUTEROL SULFATE 2.5 MG/3 ML NEBU. NEB SCH ×4 (07:24→20:56)
[2016-06-12] MEDS: INSULIN ASPART 300 UNITS/3 ML INSULN.PEN SQ SCH ×3 (08:00→17:00)
--- NOTE | 2016-06-12 09:41 | RAD ---
Indication: Cough, leukocytosis, short of breath, weakness. Technique: Two-view chest radiograph was obtained. Comparison is from February 11, 2016. There is also a CT from January 16, 2014. Findings: There is a masslike consolidation in the left apex medially. Additional nodular densities are noted in the right upper and lower lung bucio. There are minimal bilateral pleural effusions. The heart is not enlarged. The pulmonary vasculature is mildly cephalized. Bony structures are intact. Impression: 1. Masslike consolidation in the left upper lobe as well as nodular opacities in the right lung. This is a change from January. Multifocal pneumonia is a consideration. Follow-up to document resolution and exclude other etiologies would be recommended. 2. Minimal pleural effusions.
[2016-06-12] MEDS: VANCOMYCIN 1.5 GM in IV NORMAL SALINE 500ML BAG 500 ML IV SCH (10:29)
[2016-06-12] MEDS: VANCOMYCIN PER PHARMACY MC PRN (10:30)
--- NOTE | 2016-06-12 11:10 | PDOC ---
Subjective: Subjective: Denies bleeding. Feels weak. Objective: Objective: Per RN - small dark brown stool this a.m. More transfusions today. Vital Signs: Vital Signs Date Time Temp Pulse Resp B/P Pulse Ox O2 Delivery O2 Flow Rate FiO2 06/12/16 10:46 98.3 72 20 119/61 92 Nasal Cannula 3.0 98.3 Labs: Laboratory Tests Test 06/11/16 11:37 06/11/16 16:26 06/11/16 16:30 06/11/16 21:22 Glucose (Fingerstick) 154mg/dL 194mg/dL 254mg/dL White Blood Count 19.2x10^3/uL Red Blood Count 2.82x10^6/uL Hemoglobin 7.1g/dL Hematocrit 22.5% Mean Corpuscular Volume 80fL Mean Corpuscular Hemoglobin 25pg Mean Corpuscular Hemoglobin Concent 31g/dL Red Cell Distribution Width 19.0% Platelet Count 253x10^3/uL Test 06/12/16 03:23 06/12/16 07:46 White Blood Count 20.5x10^3/uL Red Blood Count 2.79x10^6/uL Hemoglobin 7.0g/dL Hematocrit 21.7% Mean Corpuscular Volume 78fL Mean Corpuscular Hemoglobin 25pg Mean Corpuscular Hemoglobin Concent 32g/dL Red Cell Distribution Width 19.3% Platelet Count 260x10^3/uL Neutrophils (%) (Auto) 81% Lymphocytes (%) (Auto) 8% Monocytes (%) (Auto) 10% Eosinophils (%) (Auto) 0% Basophils (%) (Auto) 0% Neutrophils # (Auto) 16.6x10^3uL Lymphocytes # (Auto) 1.6x10^3/uL Monocytes # (Auto) 2.1x10^3/uL Eosinophils # (Auto) 0.1x10^3/uL Basophils # (Auto) 0.1x10^3/uL Sodium Level 141mmol/L Potassium Level 3.4mmol/L Chloride Level 106mmol/L Carbon Dioxide Level 28mmol/L Anion Gap 7 Blood Urea Nitrogen 37mg/dL Creatinine 1.1mg/dL Estimated GFR (Cockcroft-Gault) 65.3 Glucose Level 189mg/dL Calcium Level 7.9mg/dL Glucose (Fingerstick) 173mg/dL Imaging: CXR 06/12/16 Impression: 1. Masslike consolidation in the left upper lobe as well as nodular opacities in the right lung. This is a change from January. Multifocal pneumonia is a consideration. Follow-up to document resolution and exclude other etiologies would be recommended. 2. Minimal pleural effusions. LE US 06/11/16 IMPRESSION: 1. Findings consistent with flow-limiting stenosis within the mid and distal superficial femoral artery. There are monophasic waveforms throughout the remainder of the right lower extremity. 2. More focal stenosis at the origin of the right anterior tibial artery. CT A/P w/ IV contrast 06/11/16 Impression: Small right pleural effusion. No acute abnormality in the abdomen or pelvis is identified on today's study. Venous RLE 06/10/16 Impression: No evidence of right lower extremity DVT. PE: GEN: NAD LUNGS: decreased, nasal cannula, wet cough HEART: RRR ABD: S/ND/NT NEURO/PSYCH: A & O 3 A/P: Anemia -denies obvious bleeding, feels weak -admitting Hgb 5, 7 today - - > transfused 3 units yesterday, another 2 planned for today -hemoccult neg stool -elevated INR 3.2 on admission w/ Eliquis -no previous EGD or colonoscopy, h/o lap w/ FB removal 02/2016, h/o C Diff Foot ulcer, elevated WBC -on IV atbx Dementia (?) -- Will review w/ Dr. Admas. FRANCISCO SENIOR Jun 12, 2016 11:10
[2016-06-12] MEDS: PANTOPRAZOLE 40 MG TABLET. PO SCH (12:28)
[2016-06-12] MEDS ORDERED: FENTANYL PF 100 MCG/2 ML VIAL. IV PRN (14:30)
[2016-06-12] MEDS ORDERED: HYDROCODONE/APAP 5/325MG TABLET. PO PRN (14:30)
[2016-06-12] MEDS: HYDROCODONE/APAP 5/325MG TABLET. PO PRN (14:43)
--- NOTE | 2016-06-12 16:08 | RAD ---
Indication: Nonhealing wound. Redness and pain. Technique: 3 views of the right foot are submitted for review. No comparison is available. Findings: Potential soft tissue defect/ulceration overlying the calcaneus is noted. There also is some soft tissue swelling in this region. There is no gross bone destruction apparent. There are degenerative changes throughout the foot. There are vascular calcifications. Soft tissue swelling involving the dorsal soft tissues and throughout the plantar soft tissues are noted. Impression: Soft tissue swelling. Potential ulceration over the calcaneus. No radiographic evidence of osteomyelitis, if strong clinical suspicion consider MRI.
[2016-06-12] MEDS ORDERED: INSULIN ASPART 300 UNITS/3 ML INSULN.PEN SQ ONE (17:15)
[2016-06-12] MEDS ORDERED: ONDANSETRON PF 4 MG/2 ML VIAL. IV PRN (18:45)
--- NOTE | 2016-06-12 19:13 | PDOC ---
SUBJECTIVE Subjective No shortness of breath. notes that he looks more puffy than usual. Denies any abdominal pain. Having bowel movements but he did not note if there is any blood or melena. OBJECTIVE Vital Signs Vital Signs Date Time Temp Pulse Resp B/P Pulse Ox O2 Delivery O2 Flow Rate FiO2 06/12/16 17:15 Nasal Cannula 3.0 06/12/16 16:29 98.6 64 20 124/57 95 Nasal Cannula 3.0 98.6 06/12/16 15:57 18 90 Nasal Cannula 3.0 06/12/16 15:20 98.6 73 20 132/60 98.6 06/12/16 15:12 98.1 78 20 123/51 90 Nasal Cannula 3.0 98.1 06/12/16 14:43 20 92 Nasal Cannula 3.0 06/12/16 14:20 98.5 70 20 128/58 98.5 06/12/16 13:19 98.7 60 20 118/56 98.7 06/12/16 13:03 98.7 76 20 123/55 98.7 06/12/16 13:03 98.7 76 20 123/55 98.7 06/12/16 12:40 98.7 76 20 123/55 98.7 06/12/16 11:40 98.8 68 20 120/54 98.8 06/12/16 11:16 Nasal Cannula 3.0 06/12/16 10:46 98.3 72 20 119/61 92 Nasal Cannula 3.0 98.3 06/12/16 10:41 98.3 72 20 119/61 98.3 06/12/16 10:24 98.5 82 20 120/55 98.5 06/12/16 08:00 Nasal Cannula 3.0 06/12/16 07:26 98.8 65 20 117/59 93 Nasal Cannula 3.0 98.8 06/12/16 07:25 93 Nasal Cannula 3.0 06/12/16 03:40 98.8 69 20 106/52 90 Nasal Cannula 3.0 98.8 06/12/16 00:42 18 91 Nasal Cannula 06/12/16 00:12 20 91 Room Air 06/11/16 23:55 99.9 81 16 114/48 90 Nasal Cannula 3.0 99.9 06/11/16 21:03 90 Nasal Cannula 3.0 06/11/16 20:59 90 Nasal Cannula 3.0 06/11/16 20:02 20 90 Room Air 06/11/16 20:00 Nasal Cannula 3.0 06/11/16 19:50 99.7 77 16 111/51 93 Nasal Cannula 3.0 99.7 I & O Intake and Output 06/12/16 07:00 Intake Total 1280 ml Output Total 401 ml Balance 879 ml Intake Oral 580 ml Tube Feeding 0 ml Blood Product IV Normal Saline Flush 700 ml Output Urine Total 400 ml Stool Total 1 ml # Voids 9 PHYSICAL EXAM Physical Exam General: No acute distress. Laying in bed with nasal cannula oxygen. Mental status: Alert and oriented. Chest: Clear to auscultation bilaterally anteriorly. Good air movement anteriorly with slightly decreased at the bases.. CV: Normal rate. Regular rhythm. No murmur. Abdomen: Normal bowel sounds. Soft. Not distended. No tenderness. No guarding. No rebound. Extremities: 2+ lower extremity edema. Right foot is dressed and in a rook bruit. ASSESSMENT/PLAN Assessment/Plan 1)Acute anemia- pt's Hb last hospitalization was normal. He denies any active bleeding. Hb on admission was 5. Asymptomatic. Transfused 5 units. FOBT negative. GI consulted. Possible scope when he is more stabilized. Monitor hemoglobin. 2)Dementia: Stable 3)Sepsis- blood cultures ordered, wound cultures ordered. Pt has diabetic ulcer bottom of right foot with cellulitis. Started on Vancomycin and Zosyn. WBC on admission was 20.1 with low grade fevers. ID consult. MRI of the foot as x-ray did not show any evidence of osteo-. 4)Diabetic foot ulcer-continue wound care. Ultrasound showed areas of stenosis. Consult interventional radiology. When INR is improved, then they will proceed with that to help with healing. 5)Hx DVT/PE-off anticoagulants. PE was in approximately January. 6)Chronic respiratory failure- 2/2 COPD. Pt normally on 2L O2 at home. Normally on Advair 7)Chronic peripheral edema-resume Lasix IV especially since he is received several units of packed red blood cells. 8)HTN-monitor. Adjust medications as needed. 9)DM2- it appears that pt is normally on Lantus 24 units subcutaneously daily and sliding scale insulin at meals. Adjust as needed. 10)HLD- currently holding pt's Simvastatin Problems: COMMENT Lab Laboratory Tests Test 06/11/16 21:22 06/12/16 03:23 06/12/16 07:46 06/12/16 11:44 Glucose (Fingerstick) 254mg/dL (70-99) 173mg/dL (70-99) 224mg/dL (70-99) White Blood Count 20.5x10^3/uL (4.0-11.0) Red Blood Count 2.79x10^6/uL (4.30-5.70) Hemoglobin 7.0g/dL (13.0-17.5) Hematocrit 21.7% (39.0-53.0) Mean Corpuscular Volume 78fL (79-100) Mean Corpuscular Hemoglobin 25pg (25-35) Mean Corpuscular Hemoglobin Concent 32g/dL (31-37) Red Cell Distribution Width 19.3% (11.5-14.5) Platelet Count 260x10^3/uL (140-400) Neutrophils (%) (Auto) 81% (31-73) Lymphocytes (%) (Auto) 8% (24-48) Monocytes (%) (Auto) 10% (0-9) Eosinophils (%) (Auto) 0% (0-3) Basophils (%) (Auto) 0% (0-3) Neutrophils # (Auto) 16.6x10^3uL (1.8-7.7) Lymphocytes # (Auto) 1.6x10^3/uL (1.0-4.8) Monocytes # (Auto) 2.1x10^3/uL (0.0-1.1) Eosinophils # (Auto) 0.1x10^3/uL (0.0-0.7) Basophils # (Auto) 0.1x10^3/uL (0.0-0.2) Sodium Level 141mmol/L (136-145) Potassium Level 3.4mmol/L (3.5-5.1) Chloride Level 106mmol/L (98-107) Carbon Dioxide Level 28mmol/L (21-32) Anion Gap 7 (6-14) Blood Urea Nitrogen 37mg/dL (8-26) Creatinine 1.1mg/dL (0.7-1.3) Estimated GFR (Cockcroft-Gault) 65.3 Glucose Level 189mg/dL (70-99) Calcium Level 7.9mg/dL (8.5-10.1) Test 06/12/16 16:41 Glucose (Fingerstick) 388mg/dL (70-99) SAMI SALMON MD Jun 12, 2016 19:13
[2016-06-12] MEDS ORDERED: FUROSEMIDE 20 MG/2 ML VIAL IVP ONE (19:30)
[2016-06-12] MEDS: LACTOBACILLUS ACIDOPH & BULGAR 1 TABLET. PO SCH (20:56)
[2016-06-12] MEDS: INSULIN DETEMIR 300 UNITS/3 ML INSULN.PEN. SQ SCH (20:58)
[2016-06-13] MEDS: PIPERACILLIN/TAZOBACTAM 3.375 GM in IV NORMAL SALINE 50ML 50 ML IV SCH ×4 (01:58→18:09)
[2016-06-13 03:00] VITALS: BP 135/54
[2016-06-13 05:16] LABS: BASO # 0.1 x10^3/uL (0.0-0.2); BASO % 0 % (0-3); EOS % 1 % (0-3); HEMATOCRIT 25.6 % (39.0-53.0); HEMOGLOBIN 8.3 g/dL (13.0-17.5); LYMPH # 1.5 x10^3/uL (1.0-4.8); LYMPH % 8 % (24-48); MEAN CORPUSCULAR HEMOGLOBIN 26 pg (25-35); MEAN CORPUSCULAR HGB CONC 32 g/dL (31-37); MEAN CORPUSCULAR VOLUME 79 fL (79-100); MONO % 9 % (0-9); NEUT % 82 % (31-73); PLATELET COUNT 244 x10^3/uL (140-400); RED BLOOD COUNT 3.24 x10^6/uL (4.30-5.70); RED CELL DISTRIBUTION WIDTH 18.7 % (11.5-14.5); WHITE BLOOD COUNT 18.6 x10^3/uL (4.0-11.0)
[2016-06-13 05:42] LABS: ALBUMIN/GLOBULIN RATIO 0.7 (1.0-1.7); CALCIUM 7.8 mg/dL (8.5-10.1); GFR 72.8; POTASSIUM 3.3 mmol/L (3.5-5.1); TOTAL BILIRUBIN 0.9 mg/dL (0.2-1.0); TOTAL PROTEIN 4.8 g/dL (6.4-8.2)
[2016-06-13] MEDS: ALBUTEROL SULFATE 2.5 MG/3 ML NEBU. NEB SCH ×4 (07:17→18:33)
[2016-06-13] MEDS: BUDESONIDE 0.5 MG/2 ML NEBU NEB SCH ×2 (07:17→22:06)
[2016-06-13 07:57] VITALS: BP 123/56
[2016-06-13] MEDS: INSULIN ASPART 300 UNITS/3 ML INSULN.PEN SQ SCH ×3 (07:57→18:20)
[2016-06-13] MEDS: LACTOBACILLUS ACIDOPH & BULGAR 1 TABLET. PO SCH ×3 (08:43→18:09)
[2016-06-13] MEDS: PANTOPRAZOLE 40 MG TABLET. PO SCH (08:43)
[2016-06-13] MEDS: VANCOMYCIN 1.5 GM in IV NORMAL SALINE 500ML BAG 500 ML IV SCH (10:00)
--- NOTE | 2016-06-13 10:13 | RAD ---
PROCEDURE MRI right foot without contrast. HISTORY Nonhealing right heel ulcer. TECHNIQUE MRI of the right foot was performed without intravenous contrast. COMPARISON 06/12/2016. FINDINGS There is an ulcer along the plantar aspect of the heel. There is edema within the underlying subcutaneous fat without a clear fluid collection. This extends to the level of the plantar fascia, without clear disruption. There is edema and thickening of the origin of plantar fascia consistent with moderate plantar fasciitis. There is no clear tear. There is no underlying marrow edema or replacement within the calcaneus to indicate osteomyelitis. The Achilles tendon is normal in signal and morphology. There is increased signal along the distal tibialis posterior tendon consistent with an intrasubstance tear or severe tendinopathy. The lateral tendons are intact and located. The extensor tendons are intact. There are small osteophytes along the tibiotalar articulation indicating mild osteoarthritis. There is a small osteochondral lesion along the medial corner of the talar dome measuring 3 millimeters. The medial and lateral tendons appear intact. The Lisfranc ligament is intact. Midfoot alignment is maintained. There is [id number] osteoarthritis at the midfoot. There is soft tissue swelling along the ankle and the dorsum of the foot. There is diffuse edema throughout the intrinsic musculature with fatty infiltration laterally greater than medially. IMPRESSION - The ulcer along the plantar aspect of the heel appears superficial. There is underlying cellulitis but no clear drainable collection without contrast. - There is moderate plantar fasciitis underlying the ulcer. Acute inflammation cannot be excluded, but this is most likely more chronic degenerative process. - Intrasubstance tear versus severe tendinopathy at the tibialis posterior insertion. - Edema about the foot and ankle may reflect cellulitis or systemic/regional edematous process. - Denervation/atrophy of the intrinsic musculature. - Mild tibiotalar osteoarthritis. Small osteochondral lesion along the medial corner of the talar dome. Electronically signed by: Devon Francois (Jun 13, 2016 10:11:33)
[2016-06-13] MEDS: VANCOMYCIN PER PHARMACY MC PRN (10:53)
--- NOTE | 2016-06-13 10:53 | PDOC ---
Subjective: Subjective: "Feeling pretty good." No bleeding or GI complaints. Would like something other than clears. Objective: Objective: Per RN - no bleeding. No BM today. Has been on clears but actually had a regular tray for lunch yesterday which he tolerated. Vital Signs: Vital Signs Date Time Temp Pulse Resp B/P Pulse Ox O2 Delivery O2 Flow Rate FiO2 06/13/16 08:00 Nasal Cannula 3.0 06/13/16 07:57 97.3 66 20 123/56 93 97.3 Labs: Laboratory Tests Test 06/12/16 11:44 06/12/16 16:41 06/12/16 20:41 06/13/16 07:19 Glucose (Fingerstick) 224mg/dL (70-99) 388mg/dL (70-99) 222mg/dL (70-99) 99mg/dL (70-99) Imaging: Right Foot MRI IMPRESSION - The ulcer along the plantar aspect of the heel appears superficial. There is underlying cellulitis but no clear drainable collection without contrast. - There is moderate plantar fasciitis underlying the ulcer. Acute inflammation cannot be excluded, but this is most likely more chronic degenerative process. - Intrasubstance tear versus severe tendinopathy at the tibialis posterior insertion. - Edema about the foot and ankle may reflect cellulitis or systemic/regional edematous process. - Denervation/atrophy of the intrinsic musculature. - Mild tibiotalar osteoarthritis. Small osteochondral lesion along the medial corner of the talar dome. PE: GEN: NAD LUNGS: nasal cannula, decreased anteriorly HEART: RRR ABD: NABS, S/ND/NT NEURO/PSYCH: A & O 3 A/P: Anemia -denies obvious bleeding -Hgb improved/stable s/p multiple transfusions, hemoccult neg stool -elevated INR 3.2 on admission w/ Eliquis -no previous EGD or colonoscopy Foot ulcer, elevated WBC/sepsis, chronic resp failure -on IV atbx -- Improved today. Will advance to GI soft. Monitor labs and for bleeding. Endoscopy recommended eventually - will review w/ Dr. Adams. FRANCISCO SENIOR Jun 13, 2016 10:53
[2016-06-13] MEDS: VANCOMYCIN 1 GM in IV NORMAL SALINE 250ML 250 ML IV SCH ×2 (11:04→23:21)
[2016-06-13 11:18] VITALS: BP 131/52
--- NOTE | 2016-06-13 11:53 | PDOC ---
Infectious Disease Note ROS ROS GEN: Denies fevers, chills, sweats HEENT: Denies blurred vision, sore throat CV: Denies chest pain RESP: Denies shortness of air, cough GI: Denies n/v/d NEURO: Denies confusion, dizziness MSK: Denies weakness, joint pain/swelling Vital Sign Vital Signs Vital Signs Date Time Temp Pulse Resp B/P Pulse Ox O2 Delivery O2 Flow Rate FiO2 06/13/16 11:33 94 Nasal Cannula 3.0 06/13/16 11:18 97.9 59 20 131/52 97.9 Physical Exam PHYSICAL EXAM GENERAL: NAD, Alert HEENT: PERRL, OC/OP NECK: Supple, no JVD, no LN LUNGS: Clear HEART: S1S2, no gallop, no murmur ABD: Soft, NT, no organomegaly, no rebound EXT: No edema, no cyanosis TEST DESIGNER: Alert, oriented x 3, no focal neurologic deficit SKIN: No rash IV: ok Labs Lab Laboratory Tests Test 06/12/16 11:44 06/12/16 16:41 06/12/16 20:41 06/13/16 04:35 Glucose (Fingerstick) 224mg/dL (70-99) 388mg/dL (70-99) 222mg/dL (70-99) White Blood Count 18.6x10^3/uL (4.0-11.0) Red Blood Count 3.24x10^6/uL (4.30-5.70) Hemoglobin 8.3g/dL (13.0-17.5) Hematocrit 25.6% (39.0-53.0) Mean Corpuscular Volume 79fL (79-100) Mean Corpuscular Hemoglobin 26pg (25-35) Mean Corpuscular Hemoglobin Concent 32g/dL (31-37) Red Cell Distribution Width 18.7% (11.5-14.5) Platelet Count 244x10^3/uL (140-400) Neutrophils (%) (Auto) 82% (31-73) Lymphocytes (%) (Auto) 8% (24-48) Monocytes (%) (Auto) 9% (0-9) Eosinophils (%) (Auto) 1% (0-3) Basophils (%) (Auto) 0% (0-3) Neutrophils # (Auto) 15.2x10^3uL (1.8-7.7) Lymphocytes # (Auto) 1.5x10^3/uL (1.0-4.8) Monocytes # (Auto) 1.6x10^3/uL (0.0-1.1) Eosinophils # (Auto) 0.2x10^3/uL (0.0-0.7) Basophils # (Auto) 0.1x10^3/uL (0.0-0.2) Sodium Level 142mmol/L (136-145) Potassium Level 3.3mmol/L (3.5-5.1) Chloride Level 107mmol/L (98-107) Carbon Dioxide Level 29mmol/L (21-32) Anion Gap 6 (6-14) Blood Urea Nitrogen 27mg/dL (8-26) Creatinine 1.0mg/dL (0.7-1.3) Estimated GFR (Cockcroft-Gault) 72.8 BUN/Creatinine Ratio 27 (6-20) Glucose Level 83mg/dL (70-99) Calcium Level 7.8mg/dL (8.5-10.1) Total Bilirubin 0.9mg/dL (0.2-1.0) Aspartate Amino Transf (AST/SGOT) 12U/L (15-37) Alanine Aminotransferase (ALT/SGPT) 11U/L (16-63) Alkaline Phosphatase 72U/L (46-116) Total Protein 4.8g/dL (6.4-8.2) Albumin 2.0g/dL (3.4-5.0) Albumin/Globulin Ratio 0.7 (1.0-1.7) Test 06/13/16 07:19 06/13/16 09:55 Glucose (Fingerstick) 99mg/dL (70-99) Vancomycin Level Trough 8.9mcg/mL (10.0-20.0) Vancomycin Last Dose Date 06/12/16 Vancomycin Last Dose Time 0300 Objective Assessment Right heel wound Leukocytosis H/o PSA/Enterobacter 02/21/16 PAD Acute anemia DM H/o C-diff Plan Plan of Care Cont abx Add Fluconazole F/u labs and cults Await further arterial w/u Await further GI eval Thank you # [id number] RENATE HERRERA MD Jun 13, 2016 11:53
[2016-06-13] MEDS: FLUCONAZOLE 100 MG TABLET. PO SCH (12:12)
[2016-06-13] MEDS: HYDROCODONE/APAP 5/325MG TABLET. PO PRN (12:16)
--- NOTE | 2016-06-13 15:20 | PDOC ---
SUBJECTIVE Subjective No complaints. Breathing okay. Still feels a little puffy. Ate some regular food and tolerated that okay. Pain in the foot is controlled. OBJECTIVE Vital Signs Vital Signs Date Time Temp Pulse Resp B/P Pulse Ox O2 Delivery O2 Flow Rate FiO2 06/13/16 14:00 20 94 Nasal Cannula 3.0 06/13/16 12:16 18 94 Nasal Cannula 3.0 06/13/16 11:33 94 Nasal Cannula 3.0 06/13/16 11:18 97.9 59 20 131/52 95 Nasal Cannula 3.0 97.9 06/13/16 08:00 Nasal Cannula 3.0 06/13/16 07:57 97.3 66 20 123/56 93 Nasal Cannula 3.0 97.3 06/13/16 07:18 93 Nasal Cannula 3.0 06/13/16 03:00 98.1 54 20 135/54 92 Nasal Cannula 3.0 98.1 06/12/16 23:25 98.8 74 16 125/58 94 Nasal Cannula 3.0 98.8 06/12/16 21:25 19 92 Nasal Cannula 3.0 06/12/16 20:58 Nasal Cannula 3.0 06/12/16 20:58 Nasal Cannula 3.0 06/12/16 20:55 92 Nasal Cannula 3.0 06/12/16 20:00 Nasal Cannula 3.0 06/12/16 19:41 99.0 69 16 122/57 92 Nasal Cannula 3.0 99.0 06/12/16 17:15 Nasal Cannula 3.0 06/12/16 16:29 98.6 64 20 124/57 95 Nasal Cannula 3.0 98.6 06/12/16 15:20 98.6 73 20 132/60 98.6 I & O Intake and Output 06/13/16 07:00 Intake Total 2775 ml Output Total 1152 ml Balance 1623 ml Intake Oral 950 ml IV Total 600 ml Blood Product IV Normal Saline Flush 1225 ml Output Urine Total 1150 ml Stool Total 2 ml # Voids 3 PHYSICAL EXAM Physical Exam General: No acute distress. Laying in bed with nasal cannula oxygen. Mental status: Alert and cooperative. Chest: Clear to auscultation bilaterally anteriorly. Good air movement anteriorly. CV: Normal rate. Regular rhythm. No murmur. Abdomen: Normal bowel sounds. Soft. Not distended. No tenderness. No guarding. No rebound. Extremities: 2+ lower extremity edema. Right foot is dressed and in a rook bruit. ASSESSMENT/PLAN Assessment/Plan 1)Acute anemia- pt's Hb last hospitalization was normal. He denies any active bleeding. Hb on admission was 5. Asymptomatic. Transfused 5 units. FOBT negative. GI consulted. Possible scope when he is more stabilized. Monitor hemoglobin. 2)Dementia: Stable 3)Sepsis- blood cultures ordered, wound cultures ordered. Pt has diabetic ulcer bottom of right foot with cellulitis. Started on Vancomycin and Zosyn. WBC on admission was 20.1 with low grade fevers. ID consult. MRI did not show any evidence of osteomyelitis 4)Diabetic foot ulcer-continue wound care. Ultrasound showed areas of arterial stenosis. Consult interventional radiology. Check INR tomorrow. 5)Hx DVT/PE-off anticoagulants. PE was in approximately January. Risk of continue anticoagulation outweighs the risk of PE with negative ultrasound for DVT at the bilateral lower extremities 6)Chronic respiratory failure- 2/2 COPD. Pt normally on 2L O2 at home. Normally on Advair 7)Chronic peripheral edema-resume Lasix IV especially since he is received several units of packed red blood cells. 8)HTN-monitor. Adjust medications as needed. 9)DM2- it appears that pt is normally on Lantus 24 units subcutaneously daily and sliding scale insulin at meals. Adjust as needed. Blood sugar is labile. 10)HLD- currently holding pt's Simvastatin Problems: COMMENT Lab Laboratory Tests Test 06/12/16 16:41 06/12/16 20:41 06/13/16 04:35 06/13/16 07:19 Glucose (Fingerstick) 388mg/dL (70-99) 222mg/dL (70-99) 99mg/dL (70-99) White Blood Count 18.6x10^3/uL (4.0-11.0) Red Blood Count 3.24x10^6/uL (4.30-5.70) Hemoglobin 8.3g/dL (13.0-17.5) Hematocrit 25.6% (39.0-53.0) Mean Corpuscular Volume 79fL (79-100) Mean Corpuscular Hemoglobin 26pg (25-35) Mean Corpuscular Hemoglobin Concent 32g/dL (31-37) Red Cell Distribution Width 18.7% (11.5-14.5) Platelet Count 244x10^3/uL (140-400) Neutrophils (%) (Auto) 82% (31-73) Lymphocytes (%) (Auto) 8% (24-48) Monocytes (%) (Auto) 9% (0-9) Eosinophils (%) (Auto) 1% (0-3) Basophils (%) (Auto) 0% (0-3) Neutrophils # (Auto) 15.2x10^3uL (1.8-7.7) Lymphocytes # (Auto) 1.5x10^3/uL (1.0-4.8) Monocytes # (Auto) 1.6x10^3/uL (0.0-1.1) Eosinophils # (Auto) 0.2x10^3/uL (0.0-0.7) Basophils # (Auto) 0.1x10^3/uL (0.0-0.2) Sodium Level 142mmol/L (136-145) Potassium Level 3.3mmol/L (3.5-5.1) Chloride Level 107mmol/L (98-107) Carbon Dioxide Level 29mmol/L (21-32) Anion Gap 6 (6-14) Blood Urea Nitrogen 27mg/dL (8-26) Creatinine 1.0mg/dL (0.7-1.3) Estimated GFR (Cockcroft-Gault) 72.8 BUN/Creatinine Ratio 27 (6-20) Glucose Level 83mg/dL (70-99) Calcium Level 7.8mg/dL (8.5-10.1) Total Bilirubin 0.9mg/dL (0.2-1.0) Aspartate Amino Transf (AST/SGOT) 12U/L (15-37) Alanine Aminotransferase (ALT/SGPT) 11U/L (16-63) Alkaline Phosphatase 72U/L (46-116) Total Protein 4.8g/dL (6.4-8.2) Albumin 2.0g/dL (3.4-5.0) Albumin/Globulin Ratio 0.7 (1.0-1.7) Test 06/13/16 09:55 06/13/16 11:36 Vancomycin Level Trough 8.9mcg/mL (10.0-20.0) Vancomycin Last Dose Date 06/12/16 Vancomycin Last Dose Time 0300 Glucose (Fingerstick) 200mg/dL (70-99) SAMI SALMON MD Jun 13, 2016 15:19
[2016-06-13] MEDS ORDERED: FUROSEMIDE 20 MG/2 ML VIAL IVP ONE (15:45)
[2016-06-13 15:51] VITALS: BP 127/54
[2016-06-13] MEDS ORDERED: POTASSIUM CHLORIDE 20 MEQ TABLET.ER. PO ONE (16:00)
[2016-06-13 19:15] VITALS: BP 130/59
--- NOTE | 2016-06-13 21:10 | PDOC ---
Provider Note Provider Note IR Note: Discussed case with Dr Stephenson and Dr Adams. Right foot diabetic ulceration, with abnormal arterial duplex Doppler. Plan to proceed with right lower extremity angio +/- intervention tomorrow, if hgb holds and if coagulopathy improved---INR in AM. Thanks for the referral. SASCHA GOOD MD Jun 13, 2016 21:10
[2016-06-13] MEDS: INSULIN DETEMIR 300 UNITS/3 ML INSULN.PEN. SQ SCH (21:21)
[2016-06-13 23:15] VITALS: BP 120/59
[2016-06-14] MEDS: PIPERACILLIN/TAZOBACTAM 3.375 GM in IV NORMAL SALINE 50ML 50 ML IV SCH ×4 (00:43→17:54)
[2016-06-14 03:15] VITALS: BP 125/55
[2016-06-14 05:56] LABS: CALCIUM 8.1 mg/dL (8.5-10.1); CREATININE 0.9 mg/dL (0.7-1.3); GFR 82.3; POTASSIUM 3.4 mmol/L (3.5-5.1)
[2016-06-14 06:02] LABS: % SAT IRON 4 % (15-34); IRON,SERUM 11 ug/dL (65-175)
[2016-06-14] MEDS: HYDROCODONE/APAP 5/325MG TABLET. PO PRN (06:03)
[2016-06-14 06:10] LABS: BASO % 0 % (0-3); EOS % 2 % (0-3); HEMATOCRIT 26.4 % (39.0-53.0); HEMOGLOBIN 8.2 g/dL (13.0-17.5); LYMPH % 9 % (24-48); MEAN CORPUSCULAR HEMOGLOBIN 25 pg (25-35); MEAN CORPUSCULAR HGB CONC 31 g/dL (31-37); MEAN CORPUSCULAR VOLUME 81 fL (79-100); MONO % 9 % (0-9); NEUT % 80 % (31-73); PLATELET COUNT 236 x10^3/uL (140-400); RED BLOOD COUNT 3.24 x10^6/uL (4.30-5.70); RED CELL DISTRIBUTION WIDTH 18.6 % (11.5-14.5); WHITE BLOOD COUNT 12.2 x10^3/uL (4.0-11.0)
[2016-06-14 06:28] LABS: INR 1.4 (0.8-1.1); PROTHROMBIN TIME PATIENT 16.2 SEC (11.7-14.0)
[2016-06-14 07:00] VITALS: BP 128/65
[2016-06-14] MEDS: LACTOBACILLUS ACIDOPH & BULGAR 1 TABLET. PO SCH ×3 (08:00→17:54)
[2016-06-14] MEDS: INSULIN ASPART 300 UNITS/3 ML INSULN.PEN SQ SCH ×3 (08:00→17:00)
[2016-06-14] MEDS: ALBUTEROL SULFATE 2.5 MG/3 ML NEBU. NEB SCH ×4 (08:17→19:59)
[2016-06-14] MEDS: BUDESONIDE 0.5 MG/2 ML NEBU NEB SCH ×2 (08:17→19:59)
[2016-06-14] MEDS: PANTOPRAZOLE 40 MG TABLET. PO SCH (08:20)
--- NOTE | 2016-06-14 08:58 | PDOC ---
Infectious Disease Note Subjective Subjective Better. Less pain ROS ROS GEN: Denies fevers, chills, sweats HEENT: Denies blurred vision, sore throat CV: Denies chest pain RESP: Denies shortness of air, cough GI: Denies n/v/d NEURO: Denies confusion, dizziness MSK: Denies weakness, joint pain/swelling Vital Sign Vital Signs Vital Signs Date Time Temp Pulse Resp B/P Pulse Ox O2 Delivery O2 Flow Rate FiO2 06/14/16 08:18 91 Room Air 06/14/16 08:00 3.0 06/14/16 07:03 22 06/14/16 07:00 98.4 50 128/65 98.4 Physical Exam PHYSICAL EXAM GENERAL: NAD, Alert, coop HEENT: PERRL, OC/OP -dry NECK: Supple, no JVD, no LN LUNGS: Clear HEART: S1S2, no gallop, no murmur ABD: Soft, NT, no organomegaly, no rebound Crook EXT: No edema, no cyanosis. Foot dressed [employer]: Alert, oriented x 3, no focal neurologic deficit SKIN: No rash IV: ok Labs Lab Laboratory Tests Test 06/13/16 09:55 06/13/16 11:36 06/13/16 16:35 06/13/16 21:01 Vancomycin Level Trough 8.9mcg/mL (10.0-20.0) Vancomycin Last Dose Date 06/12/16 Vancomycin Last Dose Time 0300 Glucose (Fingerstick) 200mg/dL (70-99) 175mg/dL (70-99) 193mg/dL (70-99) Test 06/14/16 05:00 06/14/16 07:54 06/14/16 08:34 White Blood Count 12.2x10^3/uL (4.0-11.0) Red Blood Count 3.24x10^6/uL (4.30-5.70) Hemoglobin 8.2g/dL (13.0-17.5) Hematocrit 26.4% (39.0-53.0) Mean Corpuscular Volume 81fL (79-100) Mean Corpuscular Hemoglobin 25pg (25-35) Mean Corpuscular Hemoglobin Concent 31g/dL (31-37) Red Cell Distribution Width 18.6% (11.5-14.5) Platelet Count 236x10^3/uL (140-400) Neutrophils (%) (Auto) 80% (31-73) Lymphocytes (%) (Auto) 9% (24-48) Monocytes (%) (Auto) 9% (0-9) Eosinophils (%) (Auto) 2% (0-3) Basophils (%) (Auto) 0% (0-3) Neutrophils # (Auto) 9.8x10^3uL (1.8-7.7) Lymphocytes # (Auto) 1.0x10^3/uL (1.0-4.8) Monocytes # (Auto) 1.1x10^3/uL (0.0-1.1) Eosinophils # (Auto) 0.3x10^3/uL (0.0-0.7) Basophils # (Auto) 0.0x10^3/uL (0.0-0.2) Reticulocyte Count (auto) 4.0% (0.5-2.5) Prothrombin Time 16.2SEC (11.7-14.0) Prothromb Time International Ratio 1.4 (0.8-1.1) Sodium Level 143mmol/L (136-145) Potassium Level 3.4mmol/L (3.5-5.1) Chloride Level 107mmol/L (98-107) Carbon Dioxide Level 28mmol/L (21-32) Anion Gap 8 (6-14) Blood Urea Nitrogen 22mg/dL (8-26) Creatinine 0.9mg/dL (0.7-1.3) Estimated GFR (Cockcroft-Gault) 82.3 Glucose Level 91mg/dL (70-99) Calcium Level 8.1mg/dL (8.5-10.1) Iron Level 11ug/dL (65-175) Total Iron Binding Capacity 248ug/dL (250-450) Iron Saturation 4% (15-34) Glucose (Fingerstick) 60mg/dL (70-99) 78mg/dL (70-99) Objective Assessment Leukocytosis - better H/o PSA/Enterobacter 02/21/16 PAD Acute anemia DM H/o C-diff Right heel wound Plan Plan of Care Cont abx/ Fluconazole F/u labs and cults Await arterial intervention Await further GI RENATE Snow MD Jun 14, 2016 08:58
[2016-06-14] MEDS ORDERED: LIDOCAINE 1% / SOD BICARB 8.4% 20 ML VIAL. IJ ONE ×2 (08:59→10:00)
[2016-06-14] MEDS ORDERED: HEPARIN for ARTERIAL LINE 1,500 ML ONE (08:59)
[2016-06-14] MEDS ORDERED: IODIXANOL 320MG/ML 50ML VIAL. ONE (08:59)
[2016-06-14] MEDS ORDERED: IOHEXOL 300 MG/ML 100ML VIAL. ONE (08:59)
[2016-06-14] MEDS ORDERED: IODIXANOL 320 MG/ML 100 ML VIAL. ONE (08:59)
[2016-06-14] MEDS ORDERED: MIDAZOLAM HCL 2 MG/2 ML VIAL. ONE (09:33)
[2016-06-14] MEDS ORDERED: IOHEXOL 300 MG/ML 100ML VIAL. IART ONE (10:00)
[2016-06-14] MEDS ORDERED: FENTANYL PF 100 MCG/2 ML VIAL. IV ONE (10:00)
[2016-06-14] MEDS ORDERED: MIDAZOLAM HCL 2 MG/2 ML VIAL. IV ONE (10:00)
[2016-06-14] MEDS ORDERED: IODIXANOL 320 MG/ML 100 ML VIAL. IART ONE (10:00)
[2016-06-14] MEDS ORDERED: DEXTROSE 50% 25 GM / 50ML DISP.SYRIN. IV STA (10:22)
[2016-06-14] MEDS ORDERED: HEPARIN for IV BOLUS 10,000 UNIT/10 ML VIAL. ONE (10:25)
[2016-06-14] MEDS ORDERED: HEPARIN for IV BOLUS 10,000 UNIT/10 ML VIAL. IV ONE (10:27)
[2016-06-14] MEDS ORDERED: DIPHENHYDRAMINE 50 MG/ML VIAL IVP ONE (10:45)
[2016-06-14 11:48] LABS: FOLATE 12.75 ng/ml (3.2-20.0)
[2016-06-14] MEDS ORDERED: CLOPIDOGREL BISULFATE 75 MG TABLET ONE (12:02)
[2016-06-14] MEDS: IV DEXTROSE 5 %-0.45 % NACL 1,000 ML IV SCH ×2 (12:13→23:50)
[2016-06-14 12:15] VITALS: BP 140/67
[2016-06-14] MEDS ORDERED: CLOPIDOGREL BISULFATE 75 MG TABLET PO ONE (12:15)
--- NOTE | 2016-06-14 12:38 | PDOC ---
MODERATE SEDATION ASSESSMENT RISKS/ALTERNATIVES Risks/Alternatives Risks and alternatives of this type of sedation and procedure discussed with: RISK/ALTERNATIVES: Patient H & P ON CHART H & P H & P on chart and reviewed for co-morbid conditions and appropriate labs. H&P ON CHART: Yes STATUS PREG STATUS ASSESSED: N/A MEDS/ALLERGIES REVIEWED Meds/Allergies Reviewed Medications and Allergies including time and route of recently administered narcotics and sedatives. MEDS/ALLERGIES REVIEWED: Yes ASA RATING ASA RATING: II AIRWAY ASSESSMENT Airway Assessment Airway patency, oral function limitations, presence of caps, crowns, dentures, partials, and ability to extend neck assessed. AIRWAY ASSESSMENT: Yes MALLAMPATI SCORE MALLAMPATI SCORE: III PRE-SEDATION ASSESSMENT PRE-SEDATION ASSESSMENT: Yes SASCHA GOOD MD Jun 14, 2016 12:38
--- NOTE | 2016-06-14 12:43 | PDOC ---
Exam Jewish Thought Professor Jewish Thought Professor Coleen Charge Machine Operator Charge Machine Operator F Ndumbu Pre-Procedure Diagnosis Pre-Procedure Diagnosis 75 YO male with right heel diabetic ulceration and with significant PAD by arterial duplex Doppler. Post-Procedure Diagnosis Post-Procedure Diagnosis Same. Fem-pop + tibial disease. See radiology report. Procedure Performed Procedure Performed Abdominal aortogram with selective right leg angio DCB RAMP ATTENDANT right fem-pop segment RAMP ATTENDANT AT + Peroneal arteries Type of Anesthesia Type of Anesthesia Local + Mod sedation. Estimated Blood Loss EBL: 50 cc Condition of Patient Condition of Patient Stable. No apparent complication. Disposition Disposition From IR return to [facility] for recovery. F/u with PCP and ID and Wound Care Have Rxed daily Plavix x 2 months and daily ASA x 6 months. Full report to follow. SASCHA GOOD MD Jun 14, 2016 12:43
[2016-06-14] MEDS: VANCOMYCIN PER PHARMACY MC PRN (13:37)
--- NOTE | 2016-06-14 13:55 | PDOC ---
Objective: Objective: D/w RN, reviewed chart. Vital Signs: Vital Signs Date Time Temp Pulse Resp B/P Pulse Ox O2 Delivery O2 Flow Rate FiO2 06/14/16 12:15 72 16 93 Nasal Cannula 2.0 06/14/16 07:00 98.4 128/65 98.4 Labs: Laboratory Tests Test 06/13/16 16:35 06/13/16 21:01 06/14/16 05:00 06/14/16 07:54 Glucose (Fingerstick) 175mg/dL 193mg/dL 60mg/dL White Blood Count 12.2x10^3/uL Red Blood Count 3.24x10^6/uL Hemoglobin 8.2g/dL Hematocrit 26.4% Mean Corpuscular Volume 81fL Mean Corpuscular Hemoglobin 25pg Mean Corpuscular Hemoglobin Concent 31g/dL Red Cell Distribution Width 18.6% Platelet Count 236x10^3/uL Neutrophils (%) (Auto) 80% Lymphocytes (%) (Auto) 9% Monocytes (%) (Auto) 9% Eosinophils (%) (Auto) 2% Basophils (%) (Auto) 0% Neutrophils # (Auto) 9.8x10^3uL Lymphocytes # (Auto) 1.0x10^3/uL Monocytes # (Auto) 1.1x10^3/uL Eosinophils # (Auto) 0.3x10^3/uL Basophils # (Auto) 0.0x10^3/uL Reticulocyte Count (auto) 4.0% Prothrombin Time 16.2SEC Prothromb Time International Ratio 1.4 Sodium Level 143mmol/L Potassium Level 3.4mmol/L Chloride Level 107mmol/L Carbon Dioxide Level 28mmol/L Anion Gap 8 Blood Urea Nitrogen 22mg/dL Creatinine 0.9mg/dL Estimated GFR (Cockcroft-Gault) 82.3 Glucose Level 91mg/dL Calcium Level 8.1mg/dL Iron Level 11ug/dL Total Iron Binding Capacity 248ug/dL Iron Saturation 4% Vitamin B12 Level 183pg/mL Serum Folate 12.75ng/ml Test 06/14/16 08:34 06/14/16 10:20 06/14/16 10:35 06/14/16 10:47 Glucose (Fingerstick) 78mg/dL 47mg/dL 132mg/dL Glucose Level 56mg/dL PE: GEN: NAD NEURO/PSYCH: asleep after procedure, did not awaken A/P: Anemia -denies obvious bleeding -Hgb improved/stable s/p multiple transfusions, hemoccult neg stool -was on Eliquis prior to admission -no previous EGD or colonoscopy PAD s/p abdominal aortogram with selective right leg angio -DCB TOLL LINEMAN right fem-pop segment, TOLL LINEMAN AT + Peroneal arteries -to take Plavix and ASA x 2 months Leukocytosis - improved -- S/p IR procedure today w/ plans for Plavix and ASA. Will review plans for possible endoscopy w/ Dr. Adams. FRANCISCO SENIOR Jun 14, 2016 13:55
[2016-06-14] MEDS: FLUCONAZOLE 100 MG TABLET. PO SCH (13:58)
[2016-06-14 15:00] VITALS: BP 141/56
[2016-06-14] MEDS: VANCOMYCIN 1 GM in IV NORMAL SALINE 250ML 250 ML IV SCH ×2 (15:06→23:17)
--- NOTE | 2016-06-14 18:25 | PDOC ---
SUBJECTIVE Subjective Doing pretty good. Eating without any problems. Denies any abdominal pain. Foot pain is controlled. Less swelling in the foot. OBJECTIVE Vital Signs Vital Signs Date Time Temp Pulse Resp B/P Pulse Ox O2 Delivery O2 Flow Rate FiO2 06/14/16 16:32 Nasal Cannula 2.0 06/14/16 15:00 96.3 55 20 141/56 97 Nasal Cannula 3.0 96.3 06/14/16 12:41 20 3.0 06/14/16 12:15 72 16 93 Nasal Cannula 2.0 06/14/16 12:11 16 93 Nasal Cannula 2.0 06/14/16 08:18 91 Room Air 06/14/16 08:00 Nasal Cannula 3.0 06/14/16 07:03 22 Nasal Cannula 3.0 06/14/16 07:00 98.4 50 20 128/65 94 Nasal Cannula 3.0 98.4 06/14/16 03:15 98.1 61 20 125/55 93 Nasal Cannula 3.0 98.1 06/13/16 23:15 98.7 67 22 120/59 95 Nasal Cannula 3.0 98.7 06/13/16 22:08 97 Nasal Cannula 3.0 06/13/16 20:10 Nasal Cannula 3.0 06/13/16 19:15 97.9 74 20 130/59 93 Nasal Cannula 3.0 97.9 06/13/16 18:34 Nasal Cannula 3.0 I & O Intake and Output 06/14/16 07:00 Intake Total 2630 ml Output Total 1850 ml Balance 780 ml Intake Oral 2330 ml IV Total 300 ml Output Urine Total 1850 ml PHYSICAL EXAM Physical Exam General: No acute distress. Laying in bed with nasal cannula oxygen. Mental status: Alert and cooperative. Chest: Clear to auscultation bilaterally anteriorly. Good air movement anteriorly. CV: Normal rate. Regular rhythm. No murmur. Abdomen: Normal bowel sounds. Soft. Not distended. No tenderness. No guarding. No rebound. Extremities: 2+ lower extremity edema. Right foot is dressed. No significant warmth. ASSESSMENT/PLAN Assessment/Plan 1)Acute anemia- pt's Hb last hospitalization was normal. He denies any active bleeding. Hb on admission was 5. Asymptomatic. Transfused 5 units. FOBT negative. Hemoglobin stable. Continue per GI. 2)Dementia: Stable 3)Sepsis-wound cultures noted. Continue per infectious disease. Pt has diabetic ulcer bottom of right foot with cellulitis as probable source. Started on Vancomycin and Zosyn. WBC improving. MRI did not show any evidence of osteomyelitis 4)Diabetic foot ulcer-continue wound care. Lower extremity peripheral arterial disease noted with stenosis. Status post intervention today. 5)Hx DVT/PE-off anticoagulants. PE was in approximately January. Risk of continue anticoagulation outweighs the risk of PE with negative ultrasound for DVT at the bilateral lower extremities. He'll be on Plavix and aspirin now after his intervention today so we'll hold off on any other anticoagulants at this time. 6)Chronic respiratory failure- 2/2 COPD. Pt normally on 2L O2 at home. Normally on Advair 7)Chronic peripheral edema-resume Lasix IV especially since he is received several units of packed red blood cells. We should be able to resume oral Lasix tomorrow. 8)HTN-monitor. Adjust medications as needed. 9)DM2- it appears that pt is normally on Lantus 24 units subcutaneously daily and sliding scale insulin at meals. Adjust as needed. Blood sugar is labile. 10)HLD- currently holding pt's Simvastatin 11. Peripheral arterial disease: Status post intervention today. Plavix for 2 months, aspirin for [address] Horne Problems: COMMENT Lab Laboratory Tests Test 06/13/16 21:01 06/14/16 05:00 06/14/16 07:54 06/14/16 08:34 Glucose (Fingerstick) 193mg/dL (70-99) 60mg/dL (70-99) 78mg/dL (70-99) White Blood Count 12.2x10^3/uL (4.0-11.0) Red Blood Count 3.24x10^6/uL (4.30-5.70) Hemoglobin 8.2g/dL (13.0-17.5) Hematocrit 26.4% (39.0-53.0) Mean Corpuscular Volume 81fL (79-100) Mean Corpuscular Hemoglobin 25pg (25-35) Mean Corpuscular Hemoglobin Concent 31g/dL (31-37) Red Cell Distribution Width 18.6% (11.5-14.5) Platelet Count 236x10^3/uL (140-400) Neutrophils (%) (Auto) 80% (31-73) Lymphocytes (%) (Auto) 9% (24-48) Monocytes (%) (Auto) 9% (0-9) Eosinophils (%) (Auto) 2% (0-3) Basophils (%) (Auto) 0% (0-3) Neutrophils # (Auto) 9.8x10^3uL (1.8-7.7) Lymphocytes # (Auto) 1.0x10^3/uL (1.0-4.8) Monocytes # (Auto) 1.1x10^3/uL (0.0-1.1) Eosinophils # (Auto) 0.3x10^3/uL (0.0-0.7) Basophils # (Auto) 0.0x10^3/uL (0.0-0.2) Reticulocyte Count (auto) 4.0% (0.5-2.5) Prothrombin Time 16.2SEC (11.7-14.0) Prothromb Time International Ratio 1.4 (0.8-1.1) Sodium Level 143mmol/L (136-145) Potassium Level 3.4mmol/L (3.5-5.1) Chloride Level 107mmol/L (98-107) Carbon Dioxide Level 28mmol/L (21-32) Anion Gap 8 (6-14) Blood Urea Nitrogen 22mg/dL (8-26) Creatinine 0.9mg/dL (0.7-1.3) Estimated GFR (Cockcroft-Gault) 82.3 Glucose Level 91mg/dL (70-99) Calcium Level 8.1mg/dL (8.5-10.1) Iron Level 11ug/dL (65-175) Total Iron Binding Capacity 248ug/dL (250-450) Iron Saturation 4% (15-34) Vitamin B12 Level 183pg/mL (247-911) Serum Folate 12.75ng/ml (3.2-20.0) Test 06/14/16 10:20 06/14/16 10:35 06/14/16 10:47 06/14/16 16:46 Glucose (Fingerstick) 47mg/dL (70-99) 132mg/dL (70-99) 95mg/dL (70-99) Glucose Level 56mg/dL (70-99) SAMI SALMON MD Jun 14, 2016 18:24
[2016-06-14 19:43] VITALS: BP 121/57
[2016-06-14] MEDS: INSULIN DETEMIR 300 UNITS/3 ML INSULN.PEN. SQ SCH (21:00)
[2016-06-14] MEDS: FENTANYL PF 100 MCG/2 ML VIAL. IV PRN (21:01)
[2016-06-14 23:51] VITALS: BP 138/57
[2016-06-15] MEDS: PIPERACILLIN/TAZOBACTAM 3.375 GM in IV NORMAL SALINE 50ML 50 ML IV SCH ×4 (00:48→18:25)
[2016-06-15 02:56] VITALS: BP 133/55
[2016-06-15 07:00] VITALS: BP 173/53
--- NOTE | 2016-06-15 07:15 | RAD ---
Abdominal aortogram with selective right lower extremity arteriogram DCB SENIOR RESEARCH ASSOCIATE right SFA-popliteal segment SENIOR RESEARCH ASSOCIATE right anterior tibial artery SENIOR RESEARCH ASSOCIATE right peroneal artery Indication: 75-year-old male with nonhealing diabetic right heel ulceration. Abnormal arterial duplex Doppler consistent with PAD. Diagnostic arteriogram, with possible intervention, requested by primary care physician. Fluoroscopy time: 36.8 minutes Kerma-area Product: 277 Gycm2 Contrast material: 45 cc Omnipaque 300. 95 cc Visipaque 320. Anesthesia: 132 minutes moderate sedation was provided utilizing a total of 1 mg Versed, 125 mcg fentanyl, and 50 mg Benadryl. The patient was appropriately monitored by a qualified independent observer throughout the time of moderate sedation. Consent: The procedure was explained in its entirety to the patient and/or the patient's designated b2b outside sales representative by a member of the treatment team. This included a discussion of risks and benefits and commonly accepted alternatives to the procedure, as well as expected consequences of no treatment at all. Discussion of risks included, but was not limited to, those that are most frequent and those that are rare, but possibly severe or life-threatening, as well as the possibility of unforeseen complications. Sterility: All elements of maximal sterile barrier technique were utilized, including cap, mask, sterile gown, sterile gloves, large sterile sheet, appropriate hand hygiene, and 2% chlorhexidine for cutaneous antisepsis. Anticoagulation: A total of 7000 units heparin was given bolus IV during the course of this arterial intervention. Procedure: Informed consent was obtained from the patient. He was placed supine on the angiography table. Preliminary ultrasound examination of left groin revealed wide patency of left common femoral artery, which was documented with a single hard copy ultrasound image. Left groin was then prepped and draped in the usual sterile fashion, utilizing all elements of maximal sterile barrier technique, as described above. Moderate sedation was provided with IV Versed and fentanyl. Using aseptic technique, local anesthesia, direct ultrasound guidance, and the micropuncture system, a 6 Hungarian Donnie 2 left common femoral artery sheath was successfully introduced, and was advanced into juxta renal abdominal aorta. Abdominal aortogram: A 5 Hungarian Omni Flush catheter was advanced through the Donnie sheath and was positioned within suprarenal abdominal aorta. Omnipaque 300 was power injected and abdominal aortogram DSA images were obtained. Findings: DSA images are degraded by patient respiratory motion. Infrarenal abdominal aorta appears calcific and small in caliber, without flow-limiting stricture. There is no abdominal aortic aneurysm. Right renal artery appears widely patent. Proximal left renal artery is obscured by overlying patent, contrast opacified SMA. Distal left renal artery shows changes suggesting fibromuscular dysplasia. TERRI is patent. Oblique pelvis injection: The Donnie sheath and 5 Hungarian Omni Flush catheter were withdrawn into terminal abdominal aorta, just above bifurcation. Omnipaque 300 was again injected and DSA images were obtained over pelvis in the MAURITIAN projection. Findings: Both common iliac arteries show atherosclerotic calcification, without hemodynamically significant stenosis. There is moderate narrowing at origin of right hypogastric artery. There is mild narrowing at origin of left hypogastric artery. Both external iliac arteries show atherosclerotic calcification, without flow-limiting stenosis. Right lower extremity arteriogram: The 5 Hungarian Omni Flush catheter was exchanged for a 4 Hungarian angled glide catheter, which was advanced over a Glidewire across aortic bifurcation into contralateral right common femoral artery. Visipaque was injected and DSA images were obtained over right groin in the HAMILTON projection. The angle glide catheter was then further advanced into proximal right SFA. Visipaque was injected and digital angiographic images were obtained from proximal thigh through foot. Findings: Right common femoral artery shows atherosclerotic plaquing, without significant stenosis. There is at least moderate stenosis at origin of right deep femoral artery, which is otherwise patent. Right [id number] popliteal artery segment shows diffuse atherosclerotic calcific plaquing, with multifocal areas of at least moderate stenosis. The dominant segment of SFA-popliteal disease commences approximately 7 cm above and extends approximately 7 cm below abductor canal. Below knee right popliteal artery appears widely patent. There is focal severe stenosis at origin of anterior tibial artery, which is otherwise widely patent to ankle. Small caliber dorsalis pedis artery appears occluded, with multiple tiny collateral vessels along the dorsal aspect of right hind and midfoot. Right tibioperoneal trunk is patent. Right peroneal artery is patent from origin to ankle, but is diffusely small in caliber throughout mid and distal calf. Posterior branch of peroneal artery is widely patent, and provides collateral perfusion to lateral plantar artery as well as innumerable collateral vessels along plantar aspect of right hind and midfoot. Posterior tibial artery is occluded at its origin, without distal reconstitution. DCB SENIOR RESEARCH ASSOCIATE right SFA-popliteal segment: In an attempt to maximize perfusion to right foot, the decision was made to proceed with balloon angioplasty of the 14 cm segment of dominant SFA-popliteal disease, centered about abductor canal. The 4 Hungarian angled glide catheter, previously positioned within proximal right SFA, was removed over a Terumo advantage guidewire. The left groin 6 Hungarian Donnie sheath was then advanced over the advantage wire into contralateral right common femoral artery. Following IV bolus ministration of 5000 minutes heparin, a 0.035 inch quick cross catheter was advanced through the Donnie sheath over the advantage wire into mid right popliteal artery. The quick cross catheter was then exchanged over a grand slam microguidewire for a 5 mm x 80 mm were discussed chocolate SENIOR RESEARCH ASSOCIATE balloon, which was utilized to perform prolonged (5 minutes) balloon dilatation of distal right SFA and proximal right popliteal artery to a peak pressure of 12 lio. The chocolate SENIOR RESEARCH ASSOCIATE balloon was then exchanged for a 5 mm x 120 mm Medtronic's drug coated balloon, which was inflated to a peak pressure of 5 lio across distal two thirds of the involved SFA-popliteal segment. An additional 5 mm x 80 mm Medtronic's drug coated balloon was inflated to a peak pressure of 5 lio across proximal half of the involved SFA-popliteal segment. Visipaque was injected through the Donnie sheath, and post angioplasty DSA images were obtained, which revealed significantly improved caliber, without complicating thrombosis, or flow-limiting dissection, or distal embolization. SENIOR RESEARCH ASSOCIATE right anterior tibial artery: Following SENIOR RESEARCH ASSOCIATE of right SFA-popliteal segment, attention was turned to the severe origin right anterior tibial artery stenosis. A Singh Cross catheter was advanced through the Donnie sheath into distal right popliteal artery over the grand slam wire, which was then removed. The Singh Cross catheter was then advanced across the severe anterior tibial artery stenosis over a Terumo GT microguidewire. The GT microguidewire was then re-exchanged for the grand slam wire, which was advanced into mid-distal right anterior tibial artery. The Singh Cross catheter was then exchanged over the grand slam wire for a 3 mm chocolate SENIOR RESEARCH ASSOCIATE balloon, which was utilized to perform prolonged (5 minutes) balloon dilatation of proximal right anterior tibial artery to a peak pressure of 10 lio. The chocolate SENIOR RESEARCH ASSOCIATE balloon was then deflated and removed. Completion DSA images were obtained, which revealed improved caliber of the origin anterior tibial artery stenosis, with approximately 30% residual stenosis, and without complicating dissection or thrombosis. SENIOR RESEARCH ASSOCIATE right peroneal artery: In an attempt to maximize perfusion to the patient's right heel diabetic ulceration, the decision was made to perform balloon dilatation of the diffusely attenuated mid-distal right peroneal artery. A 0.018 inch quick cross catheter was advanced through the Ancel sheath over the grand slam wire into distal right popliteal artery. The quick cross catheter was then further advanced over a Modus eDiscovery GT microguidewire to cross right tibioperoneal trunk and through right peroneal artery into the large posterior peroneal artery branch at the level of ankle. An additional 2000 units heparin was given bolus IV. The quick cross catheter was then exchanged for a 2 mm x 200 mm PurePredictive Saber SENIOR RESEARCH ASSOCIATE balloon, which was utilized to perform prolonged (5 minutes) balloon dilatation of entire mid and distal right peroneal artery to a peak pressure of 10 lio. The saber SENIOR RESEARCH ASSOCIATE balloon was then deflated and removed. Completion DSA images were obtained, which revealed improved caliber of right peroneal artery, without complicating flow-limiting dissection, thrombosis, or distal embolization. Patient tolerated the procedure well without apparent cortication. Hemostasis was achieved at the left groin puncture site utilizing the Angio-Seal system. Impression: 1. Infrarenal abdominal aorta is calcific, a small in caliber, without localized flow-limiting stricture. Changes of fibromuscular dysplasia are considered likely involving distal left renal artery. 2. Common iliac and external iliac arteries show calcific plaques, without hemodynamically significant stenosis. 3. At least moderate stenosis at origin of right deep femoral artery. Right VSX-[id number]-[id number] popliteal artery segment shows diffuse calcific plaquing, with multifocal areas of at least moderate stenosis, most evident centered about abductor canal, for which successful, uneventful paclitaxel-coated balloon angioplasty was performed, as described. 4. Focal severe stenosis at origin of right anterior tibial artery, for which successful, uneventful balloon angioplasty was performed. Dorsalis pedis artery appears chronically occluded, with innumerable tiny collateral vessels overlying dorsal aspect of right hind-and midfoot. 5. Right peroneal artery shows diffuse, advanced long segment attenuation at the level of mid and distal calf, for which successful, uneventful balloon angioplasty was performed. Large posterior branch of peroneal artery provides collateral perfusion to (probably) lateral plantar artery, as well as innumerable tiny collateral vessels at plantar aspect of hind-and midfoot. 6. Right posterior tibial artery is occluded at its origin, without distal reconstitution.
[2016-06-15] MEDS: ALBUTEROL SULFATE 2.5 MG/3 ML NEBU. NEB SCH ×4 (07:55→19:59)
[2016-06-15] MEDS: BUDESONIDE 0.5 MG/2 ML NEBU NEB SCH ×2 (07:55→20:00)
[2016-06-15] MEDS: INSULIN ASPART 300 UNITS/3 ML INSULN.PEN SQ SCH ×3 (08:00→18:36)
[2016-06-15] MEDS: LACTOBACILLUS ACIDOPH & BULGAR 1 TABLET. PO SCH ×3 (08:07→18:25)
[2016-06-15] MEDS: PANTOPRAZOLE 40 MG TABLET. PO SCH (08:07)
[2016-06-15] MEDS: CLOPIDOGREL BISULFATE 75 MG TABLET PO SCH (08:07)
[2016-06-15] MEDS: FLUCONAZOLE 100 MG TABLET. PO SCH (08:07)
[2016-06-15] MEDS: ASPIRIN ENTERIC COATED 81 MG TABLET.DR. PO SCH (08:08)
--- NOTE | 2016-06-15 09:28 | PDOC ---
Infectious Disease Note Subjective Subjective Better. Less pain ROS ROS GEN: Denies fevers, chills, sweats HEENT: Denies blurred vision, sore throat CV: Denies chest pain RESP: Denies shortness of air, cough GI: Denies n/v/d NEURO: Denies confusion, dizziness MSK: Denies weakness, joint pain/swelling Vital Sign Vital Signs Vital Signs Date Time Temp Pulse Resp B/P Pulse Ox O2 Delivery O2 Flow Rate FiO2 06/15/16 08:00 Nasal Cannula 2.0 06/15/16 07:55 94 06/15/16 07:00 98.0 52 24 173/53 98.0 Physical Exam PHYSICAL EXAM GENERAL: NAD, Alert, coop HEENT: PERRL, OC/OP -dry NECK: Supple, no JVD, no LN LUNGS: Clear HEART: S1S2, no gallop, no murmur ABD: Soft, NT, no organomegaly, no rebound, obese [place] EXT: No edema, no cyanosis. Foot dressed/ Rooke boot NEIGHBORHOOD COORDINATOR: Alert, oriented x 3, no focal neurologic deficit SKIN: No rash IV: ok Labs Lab Laboratory Tests Test 06/14/16 10:20 06/14/16 10:35 06/14/16 10:47 06/14/16 16:46 Glucose (Fingerstick) 47mg/dL (70-99) 132mg/dL (70-99) 95mg/dL (70-99) Glucose Level 56mg/dL (70-99) Test 06/14/16 23:09 06/15/16 07:25 Glucose (Fingerstick) 143mg/dL (70-99) 139mg/dL (70-99) Objective Assessment Leukocytosis - better Heel wound - Staph and Group B H/o PSA/Enterobacter 02/21/16 PAD Acute anemia DM H/o C-diff Right heel wound Plan Plan of Care Cont abx/ Fluconazole F/u labs and cults Change to po when cults finalized Await further GI RENATE Snow MD Jun 15, 2016 09:28
--- NOTE | 2016-06-15 10:54 | PDOC ---
G I PROGRESS NOTE Reason for Follow-up Chronic blood loss anemia Subjective No complaints Physical Exam Lungs decreased BS CV S1 S2 ABD +BS, soft, nontender Review of Relevant I have reviewed the following items tenisha (where applicable) has been applied. Labs Laboratory Tests Test 06/13/16 11:36 06/13/16 16:35 06/13/16 21:01 06/14/16 05:00 Glucose (Fingerstick) 200mg/dL (70-99) 175mg/dL (70-99) 193mg/dL (70-99) White Blood Count 12.2x10^3/uL (4.0-11.0) Red Blood Count 3.24x10^6/uL (4.30-5.70) Hemoglobin 8.2g/dL (13.0-17.5) Hematocrit 26.4% (39.0-53.0) Mean Corpuscular Volume 81fL (79-100) Mean Corpuscular Hemoglobin 25pg (25-35) Mean Corpuscular Hemoglobin Concent 31g/dL (31-37) Red Cell Distribution Width 18.6% (11.5-14.5) Platelet Count 236x10^3/uL (140-400) Neutrophils (%) (Auto) 80% (31-73) Lymphocytes (%) (Auto) 9% (24-48) Monocytes (%) (Auto) 9% (0-9) Eosinophils (%) (Auto) 2% (0-3) Basophils (%) (Auto) 0% (0-3) Neutrophils # (Auto) 9.8x10^3uL (1.8-7.7) Lymphocytes # (Auto) 1.0x10^3/uL (1.0-4.8) Monocytes # (Auto) 1.1x10^3/uL (0.0-1.1) Eosinophils # (Auto) 0.3x10^3/uL (0.0-0.7) Basophils # (Auto) 0.0x10^3/uL (0.0-0.2) Reticulocyte Count (auto) 4.0% (0.5-2.5) Prothrombin Time 16.2SEC (11.7-14.0) Prothromb Time International Ratio 1.4 (0.8-1.1) Sodium Level 143mmol/L (136-145) Potassium Level 3.4mmol/L (3.5-5.1) Chloride Level 107mmol/L (98-107) Carbon Dioxide Level 28mmol/L (21-32) Anion Gap 8 (6-14) Blood Urea Nitrogen 22mg/dL (8-26) Creatinine 0.9mg/dL (0.7-1.3) Estimated GFR (Cockcroft-Gault) 82.3 Glucose Level 91mg/dL (70-99) Calcium Level 8.1mg/dL (8.5-10.1) Iron Level 11ug/dL (65-175) Total Iron Binding Capacity 248ug/dL (250-450) Iron Saturation 4% (15-34) Vitamin B12 Level 183pg/mL (247-911) Serum Folate 12.75ng/ml (3.2-20.0) Test 06/14/16 07:54 06/14/16 08:34 06/14/16 10:20 06/14/16 10:35 Glucose (Fingerstick) 60mg/dL (70-99) 78mg/dL (70-99) 47mg/dL (70-99) Glucose Level 56mg/dL (70-99) Test 06/14/16 10:47 06/14/16 16:46 06/14/16 23:09 06/15/16 07:25 Glucose (Fingerstick) 132mg/dL (70-99) 95mg/dL (70-99) 143mg/dL (70-99) 139mg/dL (70-99) Laboratory Tests Test 06/14/16 16:46 06/14/16 23:09 06/15/16 07:25 Glucose (Fingerstick) 95mg/dL (70-99) 143mg/dL (70-99) 139mg/dL (70-99) Microbiology 06/11/16 Blood Culture - Preliminary, Resulted NO GROWTH AFTER 3 DAYS 06/11/16 Gram Stain - Final, Complete Medications Current Medications Fentanyl Citrate (Fentanyl 2ml Vial) 25 mcg PRN Q15MIN PRN IV PAIN GREATER THAN 3/10 Last administered on 06/11/16t 09:50; Start 06/10/16 at 23:30; Stop at 17:35; Status DC Iohexol (Omnipaque 300 Mg/ml) 60 ml 1X ONCE IV Last administered on 06/11/16 01:06; Start 06/11/16 at 01:30; Stop 06/11/16 at 01:31; Status DC Info (Do NOT chart on this entry -- for MONITORING) 1 each PRN DAILY PRN MC SEE COMMENTS; Start 06/11/16 at 01:30; Stop 06/13/16 at 01:29; Status DC Ondansetron HCl (Zofran) 4 mg PRN Q8HRS PRN IV NAUSEA/VOMITING; Start 06/11/16 at 03:15; Stop 06/12/16 at 03:14; Status DC Fentanyl Citrate (Fentanyl 2ml Vial) 50 mcg PRN Q2HR PRN IV PAIN Last administered on 06/12/16 00:12; Start 06/11/16 at 03:15; Stop 06/12/16 at 03:14 ; Status DC Acetaminophen (Tylenol) 650 mg PRN Q4HRS PRN PO FEVER; Start 06/11/16 at 03:15 ; Stop 06/12/16 at 03:14; Status DC Insulin Aspart (Novolog) 0-7 UNITS TIDWMEALS SQ Last administered on 06/13/16 18:20; Start 06/11/16 at 09:00 Dextrose 12.5 gm PRN Q15MIN PRN IV SEE COMMENTS; Start 06/11/16 at 08:45 Vancomycin HCl 1 each 1 each PRN DAILY PRN MC SEE COMMENTS Last administered on 06/14/16 13:37; Start 06/11/16 at 08:45 Piperacillin Sod/ Tazobactam Sod 3.375 gm/Sodium Chloride 50 ml @ 100 mls/hr Q6HRS IV Last administered on 06/15/16 06:23; Start 06/11/16 at 12:00 Vancomycin HCl/ Sodium Chloride (Iv Sodium Chloride 0.9% 500ml Bag) 500 ml @ 250 mls/hr 1X ONCE IV Last administered on 06/11/16 10:23; Start 06/11/16 at 09:00; Stop 06/11/16 at 10:59; Status DC Non-Formulary Medication 1 puff BID IH ; Start 06/11/16 at 09:00; Stop 06/11/16 at 09:00; Status DC Furosemide (Lasix) 40 mg 1X ONCE IVP Last administered on 06/11/16 09:49; Start 06/11/16 at 09:00; Stop 06/11/16 at 09:01; Status DC Budesonide (Pulmicort) 0.5 mg RTBID NEB Last administered on 06/15/16 07:55; Start 06/11/16 at 09:30 Albuterol Sulfate 2.5 mg 2.5 mg RTQID NEB Last administered on 06/15/16 07:55 ; Start 06/11/16 at 12:00 Vancomycin HCl/ Sodium Chloride (Iv Sodium Chloride 0.9% 500ml Bag) 500 ml @ 250 mls/hr Q24H IV Last administered on 06/12/16 10:29; Start 06/12/16 at 10: 00; Stop 06/13/16 at 10:56; Status DC Vancomycin HCl 1 each 1X ONCE MC ; Start 06/13/16 at 09:30; Stop 06/13/16 at 09 :31; Status DC Pantoprazole Sodium (Protonix) 40 mg DAILYAC PO Last administered on 06/15/16 08:07; Start 06/12/16 at 12:00 Fentanyl Citrate (Fentanyl 2ml Vial) 50 mcg PRN Q2HR PRN IV PAIN Last administered on 06/14/16 21:01; Start 06/12/16 at 14:30 Acetaminophen/ Hydrocodone Bitart (Lortab 5/325) 1 tab PRN Q4HRS PRN PO PAIN Last administered on 06/14/16 06:03; Start 06/12/16 at 14:30 Acetaminophen/ Hydrocodone Bitart (Lortab 5/325) 1 tab PRN Q4HRS PRN PO PAIN; Start 06/12/16 at 14:30; Stop 06/13/16 at 15:35; Status DC Fentanyl Citrate (Fentanyl 2ml Vial) 50 mcg PRN Q2HR PRN IV PAIN; Start at 14:30; Stop 06/13/16 at 15:35; Status DC Insulin Aspart (Novolog) 8 units 1X ONCE SQ Last administered on 06/12/16 17: 18; Start 06/12/16 at 17:15; Stop 06/12/16 at 17:16; Status DC Ondansetron HCl (Zofran) 4 mg PRN Q6HRS PRN IV NAUSEA/VOMITING; Start 06/12/16 at 18:45 Furosemide (Lasix) 20 mg 1X ONCE IVP Last administered on 06/12/16 20:56; Start 06/12/16 at 19:30; Stop 06/12/16 at 19:31; Status DC Insulin Detemir (Levemir) 24 units QHS SQ Last administered on 06/13/16 21:21 ; Start 06/12/16 at 21:00 Lactobacillus Acidophilus 1 tab 1 tab TIDWMEALS PO Last administered on 08:07; Start 06/12/16 at 20:00 Vancomycin HCl/ Sodium Chloride (Iv Sodium Chloride 0.9% 250ml) 250 ml @ 250 mls/hr Q12H IV Last administered on 06/14/16 23:17; Start 06/13/16 at 11:00 Fluconazole (Diflucan) 100 mg DAILY PO Last administered on 06/15/16 08:07; Start 06/13/16 at 12:00 Potassium Chloride (Klor-Con) 40 meq 1X ONCE PO Last administered on 16:02; Start 06/13/16 at 16:00; Stop 06/13/16 at 16:01; Status DC Furosemide (Lasix) 20 mg 1X ONCE IVP Last administered on 06/13/16 16:02; Start 06/13/16 at 15:45; Stop 06/13/16 at 15:46; Status DC Iodixanol (Visipaque 320) 50 ml STK-MED ONCE .ROUTE ; Start 06/14/16 at 08:59; Stop 06/14/16 at 09:00; Status DC Iohexol (Omnipaque 300 Mg/ml) 100 ml STK-MED ONCE .ROUTE ; Start 06/14/16 at 08: 59; Stop 06/14/16 at 09:00; Status DC Lidocaine/Sodium Bicarbonate 20 ml 20 ml STK-MED ONCE IJ ; Start 06/14/16 at 08: 59; Stop 06/14/16 at 09:00; Status DC Heparin Sodium/ Sodium Chloride 1,500 ml @ As Directed STK-MED ONCE .ROUTE ; Start 06/14/16 at 08:59; Stop 06/14/16 at 09:00; Status DC Iodixanol (Visipaque 320) 100 ml STK-MED ONCE .ROUTE ; Start 06/14/16 at 08:59; Stop 06/14/16 at 09:00; Status DC Midazolam HCl (Versed) 2 mg STK-MED ONCE .ROUTE ; Start 06/14/16 at 09:33; Stop 06/14/16 at 09:34; Status DC Heparin Sodium/ Sodium Chloride 1,000 unit 1X ONCE IART Last administered on 12:10; Start 06/14/16 at 10:00; Stop 06/14/16 at 10:01; Status DC Lidocaine/Sodium Bicarbonate (Buffered Lidocaine 1%) 20 ml 1X ONCE IJ Last administered on 06/14/16 12:12; Start 06/14/16 at 10:00; Stop 06/14/16 at 10:01 ; Status DC Midazolam HCl (Versed) 2 mg 1X ONCE IV Last administered on 06/14/16 12:11; Start 06/14/16 at 10:00; Stop 06/14/16 at 10:01; Status DC Fentanyl Citrate (Fentanyl 2ml Vial) 100 mcg 1X ONCE IV Last administered on 12:11; Start 06/14/16 at 10:00; Stop 06/14/16 at 10:01; Status DC Iohexol (Omnipaque 300 Mg/ml) 100 ml 1X ONCE IART Last administered on 12:10; Start 06/14/16 at 10:00; Stop 06/14/16 at 10:01; Status DC Iodixanol (Visipaque 320) 100 ml 1X ONCE IART Last administered on 06/14/16 12:10; Start 06/14/16 at 10:00; Stop 06/14/16 at 10:01; Status DC Heparin Sodium (Porcine) 10,000 unit STK-MED ONCE .ROUTE ; Start 06/14/16 at 10: 25; Stop 06/14/16 at 10:30; Status DC Dextrose 25 gm 25 gm STAT STAT IV Last administered on 06/14/16 12:12; Start 06/14/16 at 10:22; Stop 06/14/16 at 10:45; Status DC Dextrose/Sodium Chloride (Iv D5% - 1/2 NS) 1,000 ml @ 75 mls/hr [id number] IV Last administered on 06/14/16 12:13; Start 06/14/16 at 10:30; Stop 06/15/16 at 04:53; Status DC Heparin Sodium (Porcine) 10,000 unit 1X ONCE IV Last administered on 12:14; Start 06/14/16 at 10:27; Stop 06/14/16 at 10:45; Status DC Diphenhydramine HCl (Benadryl) 25 mg 1X ONCE IVP Last administered on 12:10; Start 06/14/16 at 10:45; Stop 06/14/16 at 10:46; Status DC Clopidogrel Bisulfate (Plavix) 300 mg 1X ONCE PO Last administered on 12:15; Start 06/14/16 at 12:15; Stop 06/14/16 at 12:16; Status DC Clopidogrel Bisulfate (Plavix) 75 mg STK-MED ONCE .ROUTE ; Start 06/14/16 at 12: 02; Stop 06/14/16 at 12:13; Status DC Clopidogrel Bisulfate (Plavix) 75 mg DAILYWBKFT PO Last administered on 08:07; Start 06/15/16 at 08:00; Stop 08/15/16 at 08:00 Aspirin (Ecotrin) 81 mg DAILYWBKFT PO Last administered on 06/15/16 08:08; Start 06/15/16 at 08:00; Stop 12/16/16 at 08:00 Active Scripts Active Advair 100-50 Diskus (Fluticasone/Salmeterol) 1 Each Disk.w.dev 1 Puff IH BID [Vancomycin Hcl] 125 MG/2.5 ML Solution 125 Mg PO [id number] Reported Zolpidem Tartrate 5 Mg Tablet 5 Mg PO PRN QHS PRN Tamsulosin Hcl 0.4 Mg Cap.er.24h 0.4 Mg PO QHS Simvastatin 40 Mg Tablet 1 Tab PO QHS Potassium Chloride 10 Meq Capsule.er 10 Meq PO DAILY Losartan Potassium 50 Mg Tablet 50 Mg PO HS Lorazepam 0.5 Mg Tablet 0.5 Mg PO PRN Q6HRS PRN Lasix (Furosemide) 40 Mg Tablet 40 Mg PO DAILY Humulin R (Insulin Regular, Human) 100 Unit/1 Ml Vial 100 Unit SQ TIDAC Humulin N (Nph, Human Insulin Isophane) 100 Unit/1 Ml Vial 100 Unit SQ DAILYBFRLUN Humulin N (Nph, Human Insulin Isophane) 100 Unit/1 Ml Vial 100 Unit SQ DAILYBFRSUP Eliquis (Apixaban) 5 Mg Tablet 5 Mg PO BID Vitals/I & O Vital Sign - Last 24 Hours 06/14/16 06/14/16 06/14/16 06/14/16 12:11 12:15 12:41 15:00 Temp 96.3 96.3 Pulse 72 55 Resp 16 16 20 20 B/P 141/56 Pulse Ox 93 93 97 O2 Delivery Nasal Cannula Nasal Cannula Nasal Cannula O2 Flow Rate 2.0 2.0 3.0 3.0 06/14/16 06/14/16 06/14/16 06/14/16 16:32 19:43 19:59 20:00 Temp 98.3 98.3 Pulse 68 Resp 18 B/P 121/57 Pulse Ox 90 O2 Delivery Nasal Cannula Nasal Cannula Nasal Cannula Nasal Cannula O2 Flow Rate 2.0 2.0 3.0 06/14/16 06/14/16 06/14/16 06/15/16 21:01 21:31 23:51 02:56 Temp 98.9 98.1 98.9 98.1 Pulse 73 56 Resp 16 15 18 18 B/P 138/57 133/55 Pulse Ox 92 94 O2 Delivery Nasal Cannula Nasal Cannula Nasal Cannula O2 Flow Rate 3.0 3.0 3.0 06/15/16 06/15/16 06/15/16 07:00 07:55 08:00 Temp 98.0 98.0 Pulse 52 Resp 24 B/P 173/53 Pulse Ox 93 94 O2 Delivery Nasal Cannula Nasal Cannula Nasal Cannula O2 Flow Rate 2.0 2.0 2.0 Intake and Output 06/14/16 06/14/16 06/15/16 15:00 23:00 07:00 Intake Total 300 ml 700 ml Output Total 1000 ml Balance 300 ml -300 ml Problem List Problems Medical Problems: (1) Abdominal pain Status: Acute (2) Anemia Status: Acute (3) Right leg pain Status: Acute Assessment Chronic blood loss anemia- etiology to be determined. Patient considering procedures likely as o/p, cpm AUSTYN SEAY MD Jun 15, 2016 10:54
[2016-06-15 11:00] VITALS: BP 131/52
[2016-06-15] MEDS: VANCOMYCIN 1 GM in IV NORMAL SALINE 250ML 250 ML IV SCH ×2 (14:16→23:00)
[2016-06-15 15:00] VITALS: BP 136/62
--- NOTE | 2016-06-15 16:24 | PDOC ---
SUBJECTIVE Subjective No complaints. Eating okay. No abdominal pain. He is having some pain in the right foot. It is controllable with medications. He denies any shortness of breath. OBJECTIVE Vital Signs Vital Signs Date Time Temp Pulse Resp B/P Pulse Ox O2 Delivery O2 Flow Rate FiO2 06/15/16 15:00 98.0 67 20 136/62 93 Nasal Cannula 2.0 98.0 06/15/16 12:11 94 Nasal Cannula 2.0 06/15/16 11:00 97.8 54 20 131/52 92 Nasal Cannula 2.0 97.8 06/15/16 08:00 Nasal Cannula 2.0 06/15/16 07:55 94 Nasal Cannula 2.0 06/15/16 07:00 98.0 52 24 173/53 93 Nasal Cannula 2.0 98.0 06/15/16 02:56 98.1 56 18 133/55 94 Nasal Cannula 3.0 98.1 06/14/16 23:51 98.9 73 18 138/57 92 98.9 06/14/16 21:31 15 Nasal Cannula 3.0 06/14/16 21:01 16 Nasal Cannula 3.0 06/14/16 20:00 Nasal Cannula 3.0 06/14/16 19:59 Nasal Cannula 2.0 06/14/16 19:43 98.3 68 18 121/57 90 Nasal Cannula 98.3 06/14/16 16:32 Nasal Cannula 2.0 I & O Intake and Output 06/15/16 07:00 Intake Total 1000 ml Output Total 1000 ml Balance 0 ml Intake Oral 1000 ml Output Urine Total 1000 ml PHYSICAL EXAM Physical Exam General: No acute distress. Sitting in chair with nasal cannula oxygen. Mental status: Alert and cooperative. Chest: Clear to auscultation bilaterally anteriorly. Decreased air movement generally. CV: Normal rate. Regular rhythm. No murmur. Abdomen: Normal bowel sounds. Soft. Not distended. No tenderness. No guarding. No rebound. Extremities: 1+ lower extremity edema. Right foot is in rook boot. Foot dressed. ASSESSMENT/PLAN Assessment/Plan 1)Acute anemia- pt's Hb last hospitalization was normal. He denies any active bleeding. Hb on admission was 5. Asymptomatic. Transfused 5 units. FOBT negative. Hemoglobin stable. Continue per GI. Plan probable outpatient endoscopies when he is stable and more mobile. 2)Dementia: Stable 3)Sepsis-wound cultures noted. Continue per infectious disease. Pt has diabetic ulcer bottom of right foot with cellulitis as probable source. Started on Vancomycin and Zosyn. WBC improving. MRI did not show any evidence of osteomyelitis. Transition to oral antibiotics per infectious disease. 4)Diabetic foot ulcer-continue wound care. Lower extremity peripheral arterial disease noted with stenosis. Status post balloon angioplasty yesterday 5)Hx DVT/PE-off anticoagulants. PE was in approximately January. Risk of continue anticoagulation outweighs the risk of PE with negative ultrasound for DVT at the bilateral lower extremities. He'll be on Plavix and aspirin now after his intervention today so we'll hold off on any other anticoagulants at this time. 6)Chronic respiratory failure- 2/2 COPD. Pt normally on 2L O2 at home. Normally on Advair 7)Chronic peripheral: can resume oral Lasix. 8)HTN-monitor. Adjust medications as needed. 9)DM2- it appears that pt is normally on Lantus 24 units subcutaneously daily and sliding scale insulin at meals. Adjust as needed. Blood sugar is labile. 10)HLD-resume on discharge. 11. Peripheral arterial disease: Status post balloon angioplasty yesterday with still some residual areas. Plavix for 2 months, aspirin for [address] Horne 12. Disposition: Plan for senior living at the time of discharge. Social work consulted. Will need physical therapy, occupational therapy, wound care. Follow- up in the office after discharge from senior living. Problems: COMMENT Lab Laboratory Tests Test 06/14/16 16:46 06/14/16 23:09 06/15/16 07:25 06/15/16 11:46 Glucose (Fingerstick) 95mg/dL (70-99) 143mg/dL (70-99) 139mg/dL (70-99) 180mg/dL (70-99) SAMI SALMON MD Jun 15, 2016 16:24
[2016-06-15] MEDS: VANCOMYCIN PER PHARMACY MC PRN (19:03)
[2016-06-15] MEDS: HYDROCODONE/APAP 5/325MG TABLET. PO PRN (19:19)
[2016-06-15 19:43] VITALS: BP 125/57
[2016-06-15] MEDS: INSULIN DETEMIR 300 UNITS/3 ML INSULN.PEN. SQ SCH (21:52)
[2016-06-15 23:04] VITALS: BP 143/69
[2016-06-16] MEDS: PIPERACILLIN/TAZOBACTAM 3.375 GM in IV NORMAL SALINE 50ML 50 ML IV SCH ×4 (00:26→17:45)
[2016-06-16 02:37] VITALS: BP 134/62
[2016-06-16 07:00] VITALS: BP 119/83
[2016-06-16 07:17] LABS: CALCIUM 7.9 mg/dL (8.5-10.1); CREATININE 1.1 mg/dL (0.7-1.3); GFR 65.3; POTASSIUM 3.6 mmol/L (3.5-5.1)
[2016-06-16] MEDS: BUDESONIDE 0.5 MG/2 ML NEBU NEB SCH ×2 (07:49→20:53)
[2016-06-16] MEDS: ALBUTEROL SULFATE 2.5 MG/3 ML NEBU. NEB SCH ×4 (07:49→20:54)
--- NOTE | 2016-06-16 07:54 | PDOC ---
Infectious Disease Note Subjective Subjective Better. Less pain ROS ROS GEN: Denies fevers, chills, sweats HEENT: Denies blurred vision, sore throat CV: Denies chest pain RESP: Denies shortness of air, cough GI: Denies n/v/d NEURO: Denies confusion, dizziness MSK: Denies weakness, joint pain/swelling Vital Sign Vital Signs Vital Signs Date Time Temp Pulse Resp B/P Pulse Ox O2 Delivery O2 Flow Rate FiO2 06/16/16 02:37 98.3 58 20 134/62 94 Nasal Cannula 3.0 98.3 Physical Exam PHYSICAL EXAM GENERAL: NAD, Alert HEENT: PERRL, OC/OP - clear NECK: Supple, no JVD, no LN LUNGS: Clear HEART: S1S2, no gallop, no murmur ABD: Soft, NT, no organomegaly, no rebound, obese [place] EXT: Rooke boot in place. Right foot with 1 to 2 edema, Band of erythema above calcaneous. Wounds are mild moist but less tender. No odor. no cyanosis. Left foot with 1 plus edema COATING TECHNICIAN: Alert, oriented x 3, no focal neurologic deficit SKIN: No rash IV: ok Labs Lab Laboratory Tests Test 06/15/16 11:46 06/15/16 16:41 06/15/16 21:23 06/16/16 06:10 Glucose (Fingerstick) 180mg/dL (70-99) 268mg/dL (70-99) 322mg/dL (70-99) Hemoglobin 8.1g/dL (13.0-17.5) Sodium Level 143mmol/L (136-145) Potassium Level 3.6mmol/L (3.5-5.1) Chloride Level 108mmol/L (98-107) Carbon Dioxide Level 27mmol/L (21-32) Anion Gap 8 (6-14) Blood Urea Nitrogen 25mg/dL (8-26) Creatinine 1.1mg/dL (0.7-1.3) Estimated GFR (Cockcroft-Gault) 65.3 Glucose Level 140mg/dL (70-99) Calcium Level 7.9mg/dL (8.5-10.1) Micro Beta hemolytic Streptococcus, group B Moderate growth Penicillin and ampicillin are drugs of choice for treatment of beta-hemolytic streptococcal infections. Susceptibility testing of penicillins and other beta-lactam agents approved by the FDA for treatment of beta-hemolytic streptococcal infections need not be performed routinely because nonsusceptible isolates are extremely rare in any beta-hemolytic streptococcus and have not been reported for Streptococcus pyogenes (group A). (CLSI 2011) AEROBIC RES 2 Final Staphylococcus aureus Scant growth Based on resistance to penicillin and susceptibility to oxacillin this isolate would be susceptible to: * Penicillinase-stable penicillins; such as: Cloxacillin Dicloxacillin Nafcillin * Beta-lactam/beta-lactamase inhibitor combinations; such as: Amoxicillin-clavulanic acid Ampicillin-sulbactam * Antistaphylococcal cephems; such as: CONTINUED ON NEXT PAGE RUN DATE: 06/15/16 PAGE 2 RUN TIME: [facility] [address] [place] [address] Bob Ayers M.D., Maintenance Of [address] Foreman SPEC: [id number] PATIENT: ZULY OSORIO [id number] ( Continued) Procedure Result AEROBIC RES 2 Final (continued) Cefaclor Cefuroxime * Antistaphylococcal carbapenems; such as: Imipenem Meropenem ANTIMICROBIAL SUSCEPTIBILITY Final Comment S = Susceptible; I = Intermediate; R = Resistant P = Positive; N = Negative MICS are expressed in micrograms per mL Antibiotic RSLT#1 RSLT#2 RSLT#3 RSLT#4 Ciprofloxacin R Clindamycin R Erythromycin R Gentamicin S Levofloxacin R Linezolid S Moxifloxacin R Oxacillin S Penicillin R Quinupristin/Dalfopristin S Rifampin S Tetracycline S Trimethoprim/Sulfa S Vancomycin S Performed at: [address] [id number] First Aid Officer: Maeve Tello MD, Phone: [phone] Objective Assessment Leukocytosis - better Heel wound - MSSA and Group B H/o PSA/Enterobacter 02/21/16 PAD Acute anemia DM H/o C-diff Right heel wound Plan Plan of Care Cont Zosyn and f/u anaerobes Cont Fluconazole D/c Vanc Need elevation/compression and diuresis F/u labs and cults Change to po when cults finalized and swelling improved. Monitor for potential abscess development Await further GI RENATE Snow MD Jun 16, 2016 07:54
[2016-06-16] MEDS: INSULIN ASPART 300 UNITS/3 ML INSULN.PEN SQ SCH ×3 (08:00→17:52)
[2016-06-16] MEDS: ASPIRIN ENTERIC COATED 81 MG TABLET.DR. PO SCH (08:09)
[2016-06-16] MEDS: FLUCONAZOLE 100 MG TABLET. PO SCH (08:09)
[2016-06-16] MEDS: CLOPIDOGREL BISULFATE 75 MG TABLET PO SCH (08:09)
[2016-06-16] MEDS: LACTOBACILLUS ACIDOPH & BULGAR 1 TABLET. PO SCH ×3 (08:09→17:45)
[2016-06-16] MEDS: PANTOPRAZOLE 40 MG TABLET. PO SCH (08:09)
[2016-06-16 11:00] VITALS: BP 133/52
--- NOTE | 2016-06-16 13:58 | PDOC ---
SUBJECTIVE Subjective No complaints today. Pain in the foot is controlled. He denies any shortness of breath. Eating okay. Had a bowel movement. OBJECTIVE Vital Signs Vital Signs Date Time Temp Pulse Resp B/P Pulse Ox O2 Delivery O2 Flow Rate FiO2 06/16/16 11:59 Nasal Cannula 2.0 06/16/16 11:00 97.8 50 20 133/52 95 Nasal Cannula 3.0 97.8 06/16/16 08:00 Nasal Cannula 2.0 06/16/16 07:49 98 Nasal Cannula 2.0 06/16/16 07:00 98.0 60 20 119/83 97 Nasal Cannula 3.0 98.0 06/16/16 02:37 98.3 58 20 134/62 94 Nasal Cannula 3.0 98.3 06/15/16 23:04 98.1 61 20 143/69 94 Nasal Cannula 3.0 98.1 06/15/16 20:19 19 Nasal Cannula 2.0 06/15/16 20:03 97 Nasal Cannula 2.0 06/15/16 20:00 Nasal Cannula 2.0 06/15/16 19:43 98.0 61 20 125/57 96 Nasal Cannula 98.0 06/15/16 19:19 16 Nasal Cannula 2.0 06/15/16 16:24 Nasal Cannula 2.0 06/15/16 15:00 98.0 67 20 136/62 93 Nasal Cannula 2.0 98.0 I & O Intake and Output 06/16/16 07:00 Intake Total 1750 ml Output Total 700 ml Balance 1050 ml Intake Oral 1750 ml Output Urine Total 700 ml # Bowel Movements 1 PHYSICAL EXAM Physical Exam General: No acute distress. Sitting in chair with nasal cannula oxygen. Mental status: Alert and cooperative. Chest: Clear to auscultation bilaterally anteriorly. Decreased air movement generally. CV: Normal rate. Regular rhythm. No murmur. Abdomen: Normal bowel sounds. Soft. Not distended. No tenderness. No guarding. No rebound. Extremities: 2+ lower extremity edema. Right foot is in rook boot. Foot dressed. ASSESSMENT/PLAN Assessment/Plan 1)Acute anemia- pt's Hb last hospitalization was normal. He denies any active bleeding. Hb on admission was 5. Asymptomatic. Transfused 5 units. FOBT negative. Hemoglobin stable. Continue per GI. Plan probable outpatient endoscopies when he is stable and more mobile. 2)Dementia: Stable 3)Sepsis-wound cultures noted. Continue per infectious disease. Pt has diabetic ulcer bottom of right foot with cellulitis as probable source. Started on Vancomycin and Zosyn. WBC improving. MRI did not show any evidence of osteomyelitis. Transition to oral antibiotics per infectious disease. Vancomycin discontinued now.. 4)Diabetic foot ulcer-continue wound care. Lower extremity peripheral arterial disease noted with stenosis. Status post balloon angioplasty on 06/14. 5)Hx DVT/PE-off anticoagulants. PE was in approximately January. Risk of continue anticoagulation outweighs the risk of PE with negative ultrasound for DVT at the bilateral lower extremities. He'll be on Plavix and aspirin now after his intervention today so we'll hold off on any other anticoagulants at this time. 6)Chronic respiratory failure- 2/2 COPD. Pt normally on 2L O2 at home. Normally on Advair 7)Chronic peripheral: can resume oral Lasix. 8)HTN-monitor. Adjust medications as needed. 9)DM2- it appears that pt is normally on Lantus 24 units subcutaneously daily and sliding scale insulin at meals. Adjust as needed. Blood sugar is labile. 10)HLD-resume on discharge. 11. Peripheral arterial disease: Status post balloon angioplasty 06/14 with still some residual areas but appears to have okay collateral flow.. Plavix for 2 months, aspirin for [address] Horne 12. Disposition: Plan for senior living tomorrow. Arrangements made. Will need physical therapy, occupational therapy, wound care. Follow-up in the office after discharge from senior living. Problems: COMMENT Lab Laboratory Tests Test 06/15/16 16:41 06/15/16 21:23 06/16/16 06:10 06/16/16 07:31 Glucose (Fingerstick) 268mg/dL (70-99) 322mg/dL (70-99) 115mg/dL (70-99) Hemoglobin 8.1g/dL (13.0-17.5) Sodium Level 143mmol/L (136-145) Potassium Level 3.6mmol/L (3.5-5.1) Chloride Level 108mmol/L (98-107) Carbon Dioxide Level 27mmol/L (21-32) Anion Gap 8 (6-14) Blood Urea Nitrogen 25mg/dL (8-26) Creatinine 1.1mg/dL (0.7-1.3) Estimated GFR (Cockcroft-Gault) 65.3 Glucose Level 140mg/dL (70-99) Calcium Level 7.9mg/dL (8.5-10.1) Test 06/16/16 11:36 Glucose (Fingerstick) 126mg/dL (70-99) SAMI SALMON MD Jun 16, 2016 13:58
--- NOTE | 2016-06-16 14:13 | DISCH ---
DISCHARGE DISCHARGE DATE: Jun 16, 2016 FINAL DIAGNOSIS Diabetic ulcer right foot Anemia with uncertain etiology status post 5 units transfusion with workup planned in the future as an outpatient Problems Medical Problems: (1) Abdominal pain Status: Acute (2) Anemia Status: Acute (3) Right leg pain Status: Acute CONDITION ON DISCHARGE: Stable SNF STAY <30 DAYS: Yes POST DISCHARGE ORDERS ACTIVITY ORDERS: Activity as tolerated WEIGHT BEARING STATUS: Other, see below (avoid weightbearing on right foot.) DIET AFTER DISCHARGE: ADA WOUND/INCISION CARE: Change dressing, Reinforce dressing PRN FOLLOW-UP PHYSICIAN FOLLOW-UP: Dr. Salmon [facility] LAB ORDERS FOR FOLLOW-UP: CBC, BMP on 06/20 SAMI SALMON MD Jun 16, 2016 14:12
[2016-06-16 15:00] VITALS: BP 114/56
--- NOTE | 2016-06-16 18:33 | PDOC ---
G I PROGRESS NOTE Reason for Follow-up Anemia Subjective Dyspnea persists Physical Exam Lungs decreased BS CV S1 S2 ABD +BS, soft, nontender Review of Relevant I have reviewed the following items tenisha (where applicable) has been applied. Labs Laboratory Tests Test 06/14/16 23:09 06/15/16 07:25 06/15/16 11:46 06/15/16 16:41 Glucose (Fingerstick) 143mg/dL (70-99) 139mg/dL (70-99) 180mg/dL (70-99) 268mg/dL (70-99) Test 06/15/16 21:23 06/16/16 06:10 06/16/16 07:31 06/16/16 11:36 Glucose (Fingerstick) 322mg/dL (70-99) 115mg/dL (70-99) 126mg/dL (70-99) Hemoglobin 8.1g/dL (13.0-17.5) Sodium Level 143mmol/L (136-145) Potassium Level 3.6mmol/L (3.5-5.1) Chloride Level 108mmol/L (98-107) Carbon Dioxide Level 27mmol/L (21-32) Anion Gap 8 (6-14) Blood Urea Nitrogen 25mg/dL (8-26) Creatinine 1.1mg/dL (0.7-1.3) Estimated GFR (Cockcroft-Gault) 65.3 Glucose Level 140mg/dL (70-99) Calcium Level 7.9mg/dL (8.5-10.1) Test 06/16/16 17:16 Glucose (Fingerstick) 172mg/dL (70-99) Laboratory Tests Test 06/15/16 21:23 06/16/16 06:10 06/16/16 07:31 06/16/16 11:36 Glucose (Fingerstick) 322mg/dL (70-99) 115mg/dL (70-99) 126mg/dL (70-99) Hemoglobin 8.1g/dL (13.0-17.5) Sodium Level 143mmol/L (136-145) Potassium Level 3.6mmol/L (3.5-5.1) Chloride Level 108mmol/L (98-107) Carbon Dioxide Level 27mmol/L (21-32) Anion Gap 8 (6-14) Blood Urea Nitrogen 25mg/dL (8-26) Creatinine 1.1mg/dL (0.7-1.3) Estimated GFR (Cockcroft-Gault) 65.3 Glucose Level 140mg/dL (70-99) Calcium Level 7.9mg/dL (8.5-10.1) Test 06/16/16 17:16 Glucose (Fingerstick) 172mg/dL (70-99) Microbiology 06/11/16 Blood Culture - Final, Complete NO GROWTH AFTER 5 DAYS 06/11/16 Gram Stain - Final, Complete Medications Current Medications Fentanyl Citrate (Fentanyl 2ml Vial) 25 mcg PRN Q15MIN PRN IV PAIN GREATER THAN 10 Last administered on 06/11/16 09:50; Start 06/10/16 at 23:30; Stop at 17:35; Status DC Iohexol (Omnipaque 300 Mg/ml) 60 ml 1X ONCE IV Last administered on 06/11/16 01:06; Start 06/11/16 at 01:30; Stop 06/11/16 at 01:31; Status DC Info (Do NOT chart on this entry -- for MONITORING) 1 each PRN DAILY PRN MC SEE COMMENTS; Start 06/11/16 at 01:30; Stop 06/13/16 at 01:29; Status DC Ondansetron HCl (Zofran) 4 mg PRN Q8HRS PRN IV NAUSEA/VOMITING; Start 06/11/16 at 03:15; Stop 06/12/16 at 03:14; Status DC Fentanyl Citrate (Fentanyl 2ml Vial) 50 mcg PRN Q2HR PRN IV PAIN Last administered on 06/12/16 00:12; Start 06/11/16 at 03:15; Stop 06/12/16 at 03:14 ; Status DC Acetaminophen (Tylenol) 650 mg PRN Q4HRS PRN PO FEVER; Start 06/11/16 at 03:15 ; Stop 06/12/16 at 03:14; Status DC Insulin Aspart (Novolog) 0-7 UNITS TIDWMEALS SQ Last administered on 06/16/16 17:52; Start 06/11/16 at 09:00 Dextrose 12.5 gm PRN Q15MIN PRN IV SEE COMMENTS; Start 06/11/16 at 08:45 Vancomycin HCl 1 each 1 each PRN DAILY PRN MC SEE COMMENTS Last administered on 06/15/16 19:03; Start 06/11/16 at 08:45; Stop 06/16/16 at 07:50; Status DC Piperacillin Sod/ Tazobactam Sod 3.375 gm/Sodium Chloride 50 ml @ 100 mls/hr Q6HRS IV Last administered on 06/16/16 17:45; Start 06/11/16 at 12:00 Vancomycin HCl/ Sodium Chloride (Iv Sodium Chloride 0.9% 500ml Bag) 500 ml @ 250 mls/hr 1X ONCE IV Last administered on 06/11/16 10:23; Start 06/11/16 at 09:00; Stop 06/11/16 at 10:59; Status DC Non-Formulary Medication 1 puff BID IH ; Start 06/11/16 at 09:00; Stop 06/11/16 at 09:00; Status DC Furosemide (Lasix) 40 mg 1X ONCE IVP Last administered on 06/11/16 09:49; Start 06/11/16 at 09:00; Stop 06/11/16 at 09:01; Status DC Budesonide (Pulmicort) 0.5 mg RTBID NEB Last administered on 06/16/16 07:49; Start 06/11/16 at 09:30 Albuterol Sulfate 2.5 mg 2.5 mg RTQID NEB Last administered on 06/16/16 16:25 ; Start 06/11/16 at 12:00 Vancomycin HCl/ Sodium Chloride (Iv Sodium Chloride 0.9% 500ml Bag) 500 ml @ 250 mls/hr Q24H IV Last administered on 06/12/16 10:29; Start 06/12/16 at 10: 00; Stop 06/13/16 at 10:56; Status DC Vancomycin HCl 1 each 1X ONCE MC ; Start 06/13/16 at 09:30; Stop 06/13/16 at 09 :31; Status DC Pantoprazole Sodium (Protonix) 40 mg DAILYAC PO Last administered on 06/16/16 08:09; Start 06/12/16 at 12:00 Fentanyl Citrate (Fentanyl 2ml Vial) 50 mcg PRN Q2HR PRN IV PAIN Last administered on 06/14/16 21:01; Start 06/12/16 at 14:30 Acetaminophen/ Hydrocodone Bitart (Lortab 5/325) 1 tab PRN Q4HRS PRN PO PAIN Last administered on 06/15/16 19:19; Start 06/12/16 at 14:30 Acetaminophen/ Hydrocodone Bitart (Lortab 5/325) 1 tab PRN Q4HRS PRN PO PAIN; Start 06/12/16 at 14:30; Stop 06/13/16 at 15:35; Status DC Fentanyl Citrate (Fentanyl 2ml Vial) 50 mcg PRN Q2HR PRN IV PAIN; Start at 14:30; Stop 06/13/16 at 15:35; Status DC Insulin Aspart (Novolog) 8 units 1X ONCE SQ Last administered on 06/12/16 17: 18; Start 06/12/16 at 17:15; Stop 06/12/16 at 17:16; Status DC Ondansetron HCl (Zofran) 4 mg PRN Q6HRS PRN IV NAUSEA/VOMITING; Start 06/12/16 at 18:45 Furosemide (Lasix) 20 mg 1X ONCE IVP Last administered on 06/12/16 20:56; Start 06/12/16 at 19:30; Stop 06/12/16 at 19:31; Status DC Insulin Detemir (Levemir) 24 units QHS SQ Last administered on 06/15/16 21:52 ; Start 06/12/16 at 21:00 Lactobacillus Acidophilus 1 tab 1 tab TIDWMEALS PO Last administered on 17:45; Start 06/12/16 at 20:00 Vancomycin HCl/ Sodium Chloride (Iv Sodium Chloride 0.9% 250ml) 250 ml @ 250 mls/hr Q12H IV Last administered on 06/15/16 23:00; Start 06/13/16 at 11:00; Stop 06/16/16 at 07:50; Status DC Fluconazole (Diflucan) 100 mg DAILY PO Last administered on 06/16/16 08:09; Start 06/13/16 at 12:00 Potassium Chloride (Klor-Con) 40 meq 1X ONCE PO Last administered on 16:02; Start 06/13/16 at 16:00; Stop 06/13/16 at 16:01; Status DC Furosemide (Lasix) 20 mg 1X ONCE IVP Last administered on 06/13/16 16:02; Start 06/13/16 at 15:45; Stop 06/13/16 at 15:46; Status DC Iodixanol (Visipaque 320) 50 ml STK-MED ONCE .ROUTE ; Start 06/14/16 at 08:59; Stop 06/14/16 at 09:00; Status DC Iohexol (Omnipaque 300 Mg/ml) 100 ml STK-MED ONCE .ROUTE ; Start 06/14/16 at 08: 59; Stop 06/14/16 at 09:00; Status DC Lidocaine/Sodium Bicarbonate 20 ml 20 ml STK-MED ONCE IJ ; Start 06/14/16 at 08: 59; Stop 06/14/16 at 09:00; Status DC Heparin Sodium/ Sodium Chloride 1,500 ml @ As Directed STK-MED ONCE .ROUTE ; Start 06/14/16 at 08:59; Stop 06/14/16 at 09:00; Status DC Iodixanol (Visipaque 320) 100 ml STK-MED ONCE .ROUTE ; Start 06/14/16 at 08:59; Stop 06/14/16 at 09:00; Status DC Midazolam HCl (Versed) 2 mg STK-MED ONCE .ROUTE ; Start 06/14/16 at 09:33; Stop 06/14/16 at 09:34; Status DC Heparin Sodium/ Sodium Chloride 1,000 unit 1X ONCE IART Last administered on 12:10; Start 06/14/16 at 10:00; Stop 06/14/16 at 10:01; Status DC Lidocaine/Sodium Bicarbonate (Buffered Lidocaine 1%) 20 ml 1X ONCE IJ Last administered on 06/14/16 12:12; Start 06/14/16 at 10:00; Stop 06/14/16 at 10:01 ; Status DC Midazolam HCl (Versed) 2 mg 1X ONCE IV Last administered on 06/14/16 12:11; Start 06/14/16 at 10:00; Stop 06/14/16 at 10:01; Status DC Fentanyl Citrate (Fentanyl 2ml Vial) 100 mcg 1X ONCE IV Last administered on 12:11; Start 06/14/16 at 10:00; Stop 06/14/16 at 10:01; Status DC Iohexol (Omnipaque 300 Mg/ml) 100 ml 1X ONCE IART Last administered on 12:10; Start 06/14/16 at 10:00; Stop 06/14/16 at 10:01; Status DC Iodixanol (Visipaque 320) 100 ml 1X ONCE IART Last administered on 06/14/16 12:10; Start 06/14/16 at 10:00; Stop 06/14/16 at 10:01; Status DC Heparin Sodium (Porcine) 10,000 unit STK-MED ONCE .ROUTE ; Start 06/14/16 at 10: 25; Stop 06/14/16 at 10:30; Status DC Dextrose 25 gm 25 gm STAT STAT IV Last administered on 06/14/16 12:12; Start 06/14/16 at 10:22; Stop 06/14/16 at 10:45; Status DC Dextrose/Sodium Chloride (Iv D5% - 1/2 NS) 1,000 ml @ 75 mls/hr [id number] IV Last administered on 06/14/16 12:13; Start 06/14/16 at 10:30; Stop 06/15/16 at 04:53; Status DC Heparin Sodium (Porcine) 10,000 unit 1X ONCE IV Last administered on 12:14; Start 06/14/16 at 10:27; Stop 06/14/16 at 10:45; Status DC Diphenhydramine HCl (Benadryl) 25 mg 1X ONCE IVP Last administered on 12:10; Start 06/14/16 at 10:45; Stop 06/14/16 at 10:46; Status DC Clopidogrel Bisulfate (Plavix) 300 mg 1X ONCE PO Last administered on 12:15; Start 06/14/16 at 12:15; Stop 06/14/16 at 12:16; Status DC Clopidogrel Bisulfate (Plavix) 75 mg STK-MED ONCE .ROUTE ; Start 06/14/16 at 12: 02; Stop 06/14/16 at 12:13; Status DC Clopidogrel Bisulfate (Plavix) 75 mg DAILYWBKFT PO Last administered on 08:09; Start 06/15/16 at 08:00; Stop 08/15/16 at 08:00 Aspirin (Ecotrin) 81 mg DAILYWBKFT PO Last administered on 06/16/16t 08:09; Start 06/15/16 at 08:00; Stop 12/16/16 at 08:00 Active Scripts Active Advair 100-50 Diskus (Fluticasone/Salmeterol) 1 Each Disk.w.dev 1 Puff IH BID [Vancomycin Hcl] 125 MG/2.5 ML Solution 125 Mg PO [id number] Reported Zolpidem Tartrate 5 Mg Tablet 5 Mg PO PRN QHS PRN Tamsulosin Hcl 0.4 Mg Cap.er.24h 0.4 Mg PO QHS Simvastatin 40 Mg Tablet 1 Tab PO QHS Potassium Chloride 10 Meq Capsule.er 10 Meq PO DAILY Losartan Potassium 50 Mg Tablet 50 Mg PO HS Lorazepam 0.5 Mg Tablet 0.5 Mg PO PRN Q6HRS PRN Lasix (Furosemide) 40 Mg Tablet 40 Mg PO DAILY Humulin R (Insulin Regular, Human) 100 Unit/1 Ml Vial 100 Unit SQ TIDAC Humulin N (Nph, Human Insulin Isophane) 100 Unit/1 Ml Vial 100 Unit SQ DAILYBFRLUN Humulin N (Nph, Human Insulin Isophane) 100 Unit/1 Ml Vial 100 Unit SQ DAILYBFRSUP Eliquis (Apixaban) 5 Mg Tablet 5 Mg PO BID Vitals/I & O Vital Sign - Last 24 Hours 06/15/16 06/15/16 06/15/16 06/15/16 19:19 19:43 20:00 20:03 Temp 98.0 98.0 Pulse 61 Resp 16 20 B/P 125/57 Pulse Ox 96 97 O2 Delivery Nasal Cannula Nasal Cannula Nasal Cannula Nasal Cannula O2 Flow Rate 2.0 2.0 2.0 06/15/16 06/15/16 06/16/16 06/16/16 20:19 23:04 02:37 07:00 Temp 98.1 98.3 98.0 98.1 98.3 98.0 Pulse 61 58 60 Resp 19 20 20 20 B/P 143/69 134/62 119/83 Pulse Ox 94 94 97 O2 Delivery Nasal Cannula Nasal Cannula Nasal Cannula Nasal Cannula O2 Flow Rate 2.0 3.0 3.0 3.0 06/16/16 06/16/16 06/16/1617 07:49 08:00 11:00 11:59 Temp 97.8 97.8 Pulse 50 Resp 20 B/P 133/52 Pulse Ox 98 95 O2 Delivery Nasal Cannula Nasal Cannula Nasal Cannula Nasal Cannula O2 Flow Rate 2.0 2.0 3.0 2.0 06/16/16 06/16/16 15:00 16:25 Temp 97.8 97.8 Pulse 49 Resp 20 B/P 114/56 Pulse Ox 96 O2 Delivery Nasal Cannula Nasal Cannula O2 Flow Rate 3.0 2.0 Intake and Output 06/15/16 06/15/16 06/16/16 15:00 23:00 07:00 Intake Total 500 ml 1250 ml Output Total 700 ml Balance -200 ml 1250 ml Problem List Problems Medical Problems: (1) Abdominal pain Status: Acute (2) Anemia Status: Acute (3) Right leg pain Status: Acute Assessment Acute blood loss anemia- etiology to be determined. Endoscopy once rehab completed and pulmonary status improved as o/p, disposition plans per primary PROPAUSTYN BURDEN MD Jun 16, 2016 18:32
[2016-06-16 19:57] VITALS: BP 126/58
[2016-06-16] MEDS: INSULIN DETEMIR 300 UNITS/3 ML INSULN.PEN. SQ SCH (21:17)
[2016-06-16 23:15] VITALS: BP 137/56
[2016-06-17] MEDS: PIPERACILLIN/TAZOBACTAM 3.375 GM in IV NORMAL SALINE 50ML 50 ML IV SCH ×3 (00:19→12:43)
[2016-06-17 03:50] VITALS: BP 127/52
[2016-06-17 04:38] LABS: BASO # 0.1 x10^3/uL (0.0-0.2); BASO % 1 % (0-3); EOS % 4 % (0-3); HEMATOCRIT 26.6 % (39.0-53.0); HEMOGLOBIN 8.4 g/dL (13.0-17.5); LYMPH # 1.1 x10^3/uL (1.0-4.8); LYMPH % 10 % (24-48); MEAN CORPUSCULAR HEMOGLOBIN 25 pg (25-35); MEAN CORPUSCULAR HGB CONC 32 g/dL (31-37); MEAN CORPUSCULAR VOLUME 80 fL (79-100); MONO % 7 % (0-9); NEUT % 78 % (31-73); PLATELET COUNT 248 x10^3/uL (140-400); RED BLOOD COUNT 3.32 x10^6/uL (4.30-5.70); RED CELL DISTRIBUTION WIDTH 19.2 % (11.5-14.5); WHITE BLOOD COUNT 11.5 x10^3/uL (4.0-11.0)
[2016-06-17 04:50] LABS: CALCIUM 8.2 mg/dL (8.5-10.1); CREATININE 0.9 mg/dL (0.7-1.3); GFR 82.3; POTASSIUM 3.7 mmol/L (3.5-5.1)
[2016-06-17] MEDS: BUDESONIDE 0.5 MG/2 ML NEBU NEB SCH (06:18)
[2016-06-17] MEDS: ALBUTEROL SULFATE 2.5 MG/3 ML NEBU. NEB SCH ×2 (06:19→12:58)
[2016-06-17 08:00] VITALS: BP 98/59
[2016-06-17] MEDS: INSULIN ASPART 300 UNITS/3 ML INSULN.PEN SQ SCH ×2 (08:00→12:00)
--- NOTE | 2016-06-17 09:45 | PDOC ---
Infectious Disease Note Subjective Subjective Comfortable No complaints or concerns Supplemental O2 2LNC ROS ROS GEN: Denies fevers, chills, sweats CV: Denies chest pain RESP: Denies shortness of air, cough GI: Denies n/v/d Vital Sign Vital Signs Vital Signs Date Time Temp Pulse Resp B/P Pulse Ox O2 Delivery O2 Flow Rate FiO2 06/17/16 08:00 98.1 80 24 98/59 92 Nasal Cannula 3.0 98.1 Physical Exam PHYSICAL EXAM GENERAL: Sleeping, arouses easily to name HEENT: Oral cavity pink, dry. dentures NECK: Supple LUNGS: Mild congestion on the right, nonlabored HEART: S1S2, no gallop, no murmur ABD: Soft, NT, BS present : Crook EXT: BLE edema. Right foot bandage, Rooke boot in place. SKIN: No rash IV: ok Labs Lab Laboratory Tests Test 06/16/16 11:36 06/16/16 17:16 06/16/16 20:37 06/17/16 03:20 Glucose (Fingerstick) 126mg/dL (70-99) 172mg/dL (70-99) 194mg/dL (70-99) White Blood Count 11.5x10^3/uL (4.0-11.0) Red Blood Count 3.32x10^6/uL (4.30-5.70) Hemoglobin 8.4g/dL (13.0-17.5) Hematocrit 26.6% (39.0-53.0) Mean Corpuscular Volume 80fL (79-100) Mean Corpuscular Hemoglobin 25pg (25-35) Mean Corpuscular Hemoglobin Concent 32g/dL (31-37) Red Cell Distribution Width 19.2% (11.5-14.5) Platelet Count 248x10^3/uL (140-400) Neutrophils (%) (Auto) 78% (31-73) Lymphocytes (%) (Auto) 10% (24-48) Monocytes (%) (Auto) 7% (0-9) Eosinophils (%) (Auto) 4% (0-3) Basophils (%) (Auto) 1% (0-3) Neutrophils # (Auto) 9.0x10^3uL (1.8-7.7) Lymphocytes # (Auto) 1.1x10^3/uL (1.0-4.8) Monocytes # (Auto) 0.8x10^3/uL (0.0-1.1) Eosinophils # (Auto) 0.5x10^3/uL (0.0-0.7) Basophils # (Auto) 0.1x10^3/uL (0.0-0.2) Sodium Level 145mmol/L (136-145) Potassium Level 3.7mmol/L (3.5-5.1) Chloride Level 108mmol/L (98-107) Carbon Dioxide Level 30mmol/L (21-32) Anion Gap 7 (6-14) Blood Urea Nitrogen 21mg/dL (8-26) Creatinine 0.9mg/dL (0.7-1.3) Estimated GFR (Cockcroft-Gault) 82.3 Glucose Level 94mg/dL (70-99) Calcium Level 8.2mg/dL (8.5-10.1) Test 06/17/16 08:18 Glucose (Fingerstick) 54mg/dL (70-99) Objective Assessment Leukocytosis - better Heel wound - MSSA and Group B H/o PSA/Enterobacter 02/21/16 PAD Acute anemia DM H/o C-diff Plan Plan of Care Cont Zosyn and Fluconazole. wean po soon Need elevation/compression and diuresis Anticipate d/c SNF soon Attending Co-Sign The patient was seen and interviewed as well as examined at the bedside. The chart was reviewed. The case was discussed. Agree with the plan of care. change antibiotics to po augmentin ROSALIA MONTALVO APRN Jun 17, 2016 09:45 HERBERT MCFADDEN MD Jun 17, 2016 13:24
[2016-06-17] MEDS: PANTOPRAZOLE 40 MG TABLET. PO SCH (10:02)
[2016-06-17] MEDS: ASPIRIN ENTERIC COATED 81 MG TABLET.DR. PO SCH (10:02)
[2016-06-17] MEDS: LACTOBACILLUS ACIDOPH & BULGAR 1 TABLET. PO SCH ×2 (10:02→12:43)
[2016-06-17] MEDS: CLOPIDOGREL BISULFATE 75 MG TABLET PO SCH (10:02)
[2016-06-17] MEDS: FLUCONAZOLE 100 MG TABLET. PO SCH (10:02)
[2016-06-17 11:00] VITALS: BP 128/57
--- NOTE | 2016-06-17 13:58 | PDOC ---
Provider Note Provider Note discharge summary dictated # [id number] Yisel BLANDON MD Jun 17, 2016 13:58
[2016-06-17] MEDS ORDERED: AMOXICILLIN/K CLAV 875/125MG TABLET. PO SCH (21:00)
--- NOTE | 2016-06-17 21:42 | DS ---
DATE OF DISCHARGE: 06/17/2016 ADMISSION DIAGNOSIS: Abdominal pain. DISCHARGE DIAGNOSIS: Sepsis. ASSOCIATED DIAGNOSES: Acute anemia, dementia, diabetic foot ulcer, chronic respiratory failure, chronic peripheral edema, hypertension, type 2 diabetes, hyperlipidemia, peripheral arterial disease. HOSPITAL COURSE: A 75-year-old white male admitted and found to have multiple medical problems including significant right heel ulcer. He has peripheral arterial disease and had a balloon angioplasty on 06/14/2016 and was started on Plavix for 2 months followed by aspirin x6 months per Dr. Horne. He also dropped his hemoglobin. No active bleeding was found. Initial hemoglobin was 5, but he was rather asymptomatic with that. He was transfused 5 units. His fecal occult blood testing was negative. His hemoglobin was stable after the transfusion. GI saw him in consultation and felt outpatient endoscopies were indicated, but wanted to wait until he was more stable and more mobile. His dementia was stable. He was septic on wound cultures and had an ID consult, was placed on Zosyn and vancomycin. His white count improved. His MRI did not show any evidence of osteomyelitis and he is transitioned off the IV antibiotics to Augmentin 875 mg to start and take b.i.d. for 2 more weeks. His diabetic foot ulcer was treated with offloading and ruck boots. His balloon angioplasty to that leg should resolve his peripheral arterial disease and allow for adequate antibiotic treatment to reach his heel and allow for tissue oxygen inhalation and healing. He will remain off of it and not be weightbearing on it. He has a history of DVT and a pulmonary embolus, which likely accounts for his anemia. He had been off anticoagulants though but will need to be monitored closely on Plavix. His chronic respiratory failure was treated with oxygen. His COPD was treated. His peripheral edema was treated with Lasix and leg elevation. His blood pressure was controlled. His blood sugar was monitored and his insulin was given. DISCHARGE MEDICATIONS: He is discharged to [facility] on acidophilus 1 tablet t.i.d. with meals, albuterol nebulized q.i.d. 2.5 mg, Augmentin 875 one b.i.d., aspirin 81 daily, budesonide 0.5 nebulized b.i.d., Plavix 75 mg daily, hydrocodone APAP 5/325 one q. 4 hours p.r.n. pain, Levemir 24 units each evening, pantoprazole 40 mg daily, sliding scale NovoLog insulin t.i.d. with meals. He will resume Lasix 40 mg p.o. daily, lorazepam 0.5 mg every 6 hours p.r.n. agitation, losartan 50 mg at bedtime, potassium chloride 10 mEq daily, simvastatin 40 mg at bedtime, tamsulosin 0.4 mg at bedtime, zolpidem 5 mg p.r.n. insomnia. FOLLOWUP: He will follow up with Dr. Stephenson in 2 weeks post care home completion. PT and OT will be done. custodial stay less than 30 days. W Lexie BLANDON MD DR: LUIS/jeanie JOB#: [id number] / [id number]
== END 2016-06-17 14:37 | DRG 853 ==
LOC: ER 23:02 → 6 SOUTH 06-11 01:30
PROVIDERS: ADMIT Family Medicine; ATTEND Family Medicine
PROC: 30233N1 Transfusion of Nonautologous Red Blood Cells into Peripheral Vein, Percutaneous Approach (ICD-10-PCS; principal; 2016-06-11)
PROC: 047K3ZZ Dilation of Right Femoral Artery, Percutaneous Approach (ICD-10-PCS; 2016-06-15)
PROC: 047P3ZZ Dilation of Right Anterior Tibial Artery, Percutaneous Approach (ICD-10-PCS; 2016-06-15)
PROC: 047T3ZZ Dilation of Right Peroneal Artery, Percutaneous Approach (ICD-10-PCS; 2016-06-15)
DX: A41.9 Sepsis, unspecified organism (principal); E43 Unspecified severe protein-calorie malnutrition; J96.10 Chronic respiratory failure, unspecified whether with hypoxia or hypercapnia; L03.115 Cellulitis of right lower limb; D62 Acute posthemorrhagic anemia; L97.419 Non-pressure chronic ulcer of right heel and midfoot with unspecified severity; J44.9 Chronic obstructive pulmonary disease, unspecified; E11.628 Type 2 diabetes mellitus with other skin complications; D63.8 Anemia in other chronic diseases classified elsewhere; E11.621 Type 2 diabetes mellitus with foot ulcer; Z96.649 Presence of unspecified artificial hip joint; M54.5 Low back pain; E78.00 Pure hypercholesterolemia, unspecified; E78.5 Hyperlipidemia, unspecified; F03.90 Unspecified dementia, unspecified severity, without behavioral disturbance, psychotic disturbance, mood disturbance, and anxiety; I10 Essential (primary) hypertension; I73.9 Peripheral vascular disease, unspecified; M19.90 Unspecified osteoarthritis, unspecified site; M72.2 Plantar fascial fibromatosis; Z79.4 Long term (current) use of insulin; Z86.711 Personal history of pulmonary embolism; Z86.718 Personal history of other venous thrombosis and embolism; Z99.81 Dependence on supplemental oxygen
CPT/HCPCS: 36415; 37224; 37228; 37232; 71020; 73630; 73718; 74177; 75625; 75710; 76937; 80048; 80053; 80202; 81001; 82274; 82550; 82607; 82746; 82947; 83036; 83540; 83550; 83605; 85007; 85018; 85027; 85045; 85610; 85730; 86850; 86900; 86901; 86920; 87040; 87071; 87075; 87186; 87205; 93923; 93971; 94250; 94640; 94760; C1713; C1725; C1758; C1760; C1769; C1892; C1894; C2623; G0269; J1200; J1815; J1940; J2250; J2543; J3010; J3370; J7040; J7042; J7050; P9016; Q9967; 97530; 97535; 99285-25; J7030

== ENCOUNTER 2016-07-13 20:00 | Inpatient (IN) | payer BC, MEDICARE ==
[~2016-07-13] VITALS: Ht 170.2 cm; Wt 99.8 kg
[~2016-07-13 20:00] MED LIST changes: -POTA10CA PO; +POTASSIUM CHLO10 MEQ PO
[2016-07-13] MEDS ORDERED: IV NORMAL SALINE 1000ML BAG 1,000 ML IV SCH (21:30)
[2016-07-13 21:33] LABS: BASO % 0 % (0-3); EOS % 1 % (0-3); HEMATOCRIT 30.5 % (39.0-53.0); HEMOGLOBIN 9.5 g/dL (13.0-17.5); LYMPH # 0.5 x10^3/uL (1.0-4.8); LYMPH % 3 % (24-48); MEAN CORPUSCULAR HEMOGLOBIN 24 pg (25-35); MEAN CORPUSCULAR HGB CONC 31 g/dL (31-37); MEAN CORPUSCULAR VOLUME 75 fL (79-100); MONO % 6 % (0-9); NEUT % 90 % (31-73); PLATELET COUNT 218 x10^3/uL (140-400); RED BLOOD COUNT 4.05 x10^6/uL (4.30-5.70); RED CELL DISTRIBUTION WIDTH 25.2 % (11.5-14.5); WHITE BLOOD COUNT 15.9 x10^3/uL (4.0-11.0)
[2016-07-13 21:40] LABS: CREATININE 1.1 mg/dL (0.7-1.3); GFR 65.3; POTASSIUM 4.6 mmol/L (3.5-5.1)
[2016-07-13 21:46] LABS: ALBUMIN 2.2 g/dL (3.4-5.0); ALBUMIN/GLOBULIN RATIO 0.6 (1.0-1.7); TOTAL BILIRUBIN 0.4 mg/dL (0.2-1.0); TOTAL PROTEIN 5.8 g/dL (6.4-8.2)
--- NOTE | 2016-07-13 21:55 | PHYS DOC ---
Past Medical History Past Medical History: Diabetes-Type II, High Cholesterol Additional Past Medical Histor: multiple hip dislocations, DVT behind left knee , PE, C DIFF, SBO Past Surgical History: Colectomy, Hip Replacement Additional Past Surgical Histo: left hip, expl la with enterotomy and foreign body removal,back, cataract Additional Information: PAD smoker Alcohol Use: None Drug Use: None Adult General Chief Complaint Chief Complaint: WEAKNESS/GENERALIZED HPI HPI Patient is a 75 year old male who presents with generalized weakness. Patient was brought to the emergency department by EMS from home after patient was having difficulty being able to stand under his own power. The patient was recently admitted the hospital towards may for treatment of sepsis. This was secondary to ulcers of the heels secondary to peripheral vascular disease. Patient had underwent angioplasty while in hospital to help improve blood flow and help with antibiotic efficacy. Patient was discharged on June 17 to group home at [facility]. The patient was discharged home today from [facility]. Patient's states that the patient normally is able to ambulate under his own power, however the patient was unable to stand and has been significantly weak. Patient has had nausea and vomiting area patient denies any pain currently. Patient does have history of dementia. Review of Systems Review of Systems Constitutional: Generalized weakness, Denies fever or chills [] Eyes: Denies change in visual acuity, redness, or eye pain [] HENT: Denies nasal congestion or sore throat [] Respiratory: Denies cough or shortness of breath [] Cardiovascular: Denies chest pain or edema [] GI: Nausea, vomiting, denies abdominal pain, bloody stools or diarrhea [] : Denies dysuria or hematuria [] Musculoskeletal: Denies back pain or joint pain [] Integument: Diabetic heel ulcers [] Neurologic: Denies headache, focal weakness or sensory changes [] Current Medications Current Medications Current Medications Medications (Trade) Dose Ordered Sig/[place] Start Time Stop Time Status Last Admin Dose Admin Sodium Chloride (Iv Sodium Chloride 0.9% 1000ml Bag) 1,000 ml @ 100 mls/hr Q10H 07/13/16 21:30 07/14/16 07:29 07/13/16 21:40 100 MLS/HR Allergies Allergies Allergies Coded Allergies Type Severity Reaction Last Updated Verified No Known Drug Allergies 07/30/13 No Physical Exam Physical Exam Constitutional: Alert, afebrile, appears in chronically poor health. [] HENT: Normocephalic, atraumatic, bilateral external ears normal, oropharynx moist, no oral exudates, nose normal. [] Eyes: PERRLA, EOMI, conjunctiva normal, no discharge. [] Neck: Normal range of motion, no tenderness, supple, no stridor. [] Cardiovascular:Heart rate regular rhythm, no murmur [] Lungs & Thorax: Bilateral breath sounds clear to auscultation [] Abdomen: Bowel sounds normal, soft, no tenderness, no masses, no pulsatile masses. [] Skin: Warm, dry, no erythema, no rash. [] Back: No tenderness, no CVA tenderness. [] Extremities: 2 diabetic ulcers each measuring approximately 1-1/2 cm noted on right heel with underlying necrotic tissue and surrounding erythema up to the ankle, 2 cm diabetic ulcer of the left heel with necrotic tissue present, no cyanosis, no clubbing, ROM intact, 3+ pitting edema in the bilateral lower extremities. Neurologic: Alert and oriented X 3, normal motor function, normal sensory function, no focal deficits noted. [] Current Patient Data Vital Signs Vital Signs Date Time Temp Pulse Resp B/P Pulse Ox O2 Delivery O2 Flow Rate FiO2 07/13/16 20:10 98.7 83 22 150/68 91 Nasal Cannula 3 98.7 Lab Values Laboratory Tests Test 07/13/16 21:15 White Blood Count 15.9x10^3/uL (4.0-11.0) H Red Blood Count 4.05x10^6/uL (4.30-5.70) L Hemoglobin 9.5g/dL (13.0-17.5) L Hematocrit 30.5% (39.0-53.0) L Mean Corpuscular Volume 75fL (79-100) L Mean Corpuscular Hemoglobin 24pg (25-35) L Mean Corpuscular Hemoglobin Concent 31g/dL (31-37) Red Cell Distribution Width 25.2% (11.5-14.5) H Platelet Count 218x10^3/uL (140-400) Neutrophils (%) (Auto) 90% (31-73) H Lymphocytes (%) (Auto) 3% (24-48) L Monocytes (%) (Auto) 6% (0-9) Eosinophils (%) (Auto) 1% (0-3) Basophils (%) (Auto) 0% (0-3) Neutrophils # (Auto) 14.3x10^3uL (1.8-7.7) H Lymphocytes # (Auto) 0.5x10^3/uL (1.0-4.8) L Monocytes # (Auto) 1.0x10^3/uL (0.0-1.1) Eosinophils # (Auto) 0.1x10^3/uL (0.0-0.7) Basophils # (Auto) 0.0x10^3/uL (0.0-0.2) Segmented Neutrophils % 86% (35-66) H Band Neutrophils % 4% (0-9) Lymphocytes % 2% (24-48) L Monocytes % 8% (0-10) Platelet Estimate Adequate (ADEQUATE) Polychromasia Slight Hypochromasia Slight Anisocytosis Marked Spherocytes Few Schistocytes Mod Sodium Level 142mmol/L (136-145) Potassium Level 4.6mmol/L (3.5-5.1) Chloride Level 107mmol/L (98-107) Carbon Dioxide Level 25mmol/L (21-32) Anion Gap 10 (6-14) Blood Urea Nitrogen 26mg/dL (8-26) Creatinine 1.1mg/dL (0.7-1.3) Estimated GFR (Cockcroft-Gault) 65.3 BUN/Creatinine Ratio 24 (6-20) H Glucose Level 190mg/dL (70-99) H Calcium Level 8.0mg/dL (8.5-10.1) L Total Bilirubin 0.4mg/dL (0.2-1.0) Aspartate Amino Transferase (AST) 34U/L (15-37) Alanine Aminotransferase (ALT) 22U/L (16-63) Alkaline Phosphatase 104U/L (46-116) Total Protein 5.8g/dL (6.4-8.2) L Albumin 2.2g/dL (3.4-5.0) L Albumin/Globulin Ratio 0.6 (1.0-1.7) L Laboratory Tests 07/13/16 21:15 Laboratory Tests 07/13/16 21:15 EKG EKG Interpreted by me: Heart rate 82, sinus rhythm, normal intervals, normal axis, no acute ST/T-wave abnormalities present [] Radiology/Procedures Radiology/Procedures One view AP chest x-ray interpreted by me: Left lower lobe consolidation, cardiomegaly present, no effusion [] Course & Med Decision Making Course & Med Decision Making Pertinent Labs and Imaging studies reviewed. (See chart for details) Patient was started on IV fluids. The patient's workup shows likely left lower lobe pneumonia as well as evidence of cellulitis in the right heel secondary to diabetic foot ulcers. The patient remains deconditioned and unable to be taken care of at home in his current state. I spoke with Dr. Laird who accepted care patient in hospital. After discussion we have agreed to start patient on IV Zosyn, vancomycin, and Levaquin for treatment. Dragon Disclaimer Dragon Disclaimer This electronic medical record was generated, in whole or in part, using a voice recognition dictation system. Departure Departure Impression: Primary Impression: HCAP (healthcare-associated pneumonia) Additional Impressions: Cellulitis Anemia Severe protein-calorie malnutrition Disposition: ADMITTED INPATIENT Admitting Physician: Kim Laird Condition: STABLE Referrals: SAMI SALMON MD (PCP) Problem Qualifiers Additional Impressions: Cellulitis Site of cellulitis: extremity Site of cellulitis of extremity: lower extremity Laterality: right Qualified Code: L03.115 - Cellulitis of right lower limb Anemia Anemia type: unspecified type Qualified Code: D64.9 - Anemia, unspecified KATELYN MAK MD Jul 13, 2016 21:55
[2016-07-13 22:02] LABS: ANISOCYTOSIS MARKED; HYPOCHROMIA SLIGHT; PLT ESTIMATE ADEQUATE (ADEQUATE); POLYCHROMASIA SLIGHT; SCHISTOCYTES MOD
[2016-07-13 22:03] LABS: SPHEROCYTES FEW
[2016-07-13] MEDS ORDERED: ONDANSETRON PF 4 MG/2 ML VIAL. IV PRN (23:30)
[2016-07-13] MEDS ORDERED: levOFLOXacin PER PHARMACY 1 EACH EACH MC PRN (23:30)
[2016-07-13] MEDS ORDERED: ACETAMINOPHEN 325 MG TABLET. PO PRN (23:30)
[2016-07-13] MEDS ORDERED: PIP/TAZO PER PHARMACY MC PRN (23:30)
[2016-07-13] MEDS ORDERED: PIPERACILLIN/TAZOBACTAM 4.5 GM in IV NORMAL SALINE 100ML 100 ML IV ONE (23:45)
[2016-07-14] MEDS ORDERED: VANCOMYCIN 2 GM in IV NORMAL SALINE 500ML BAG 500 ML IV ONE ×2
[2016-07-14 00:09] LABS: BILIRUBIN,URINE NEGATIVE (NEG); GLUCOSE,URINE NEGATIVE (NEG); NITRITE,URINE NEGATIVE (NEG); PH,URINE 5.5; PROTEIN,URINE >=300 mg/dL (NEG-TRACE); UROBILINOGEN,URINE 0.2 mg/dL (0.2 mg/dL)
[2016-07-14 00:14] LABS: BACTERIA,URINE 0 /HPF (0-FEW); SQUAMOUS EPITHELIAL CELL,UR OCC /LPF; WBC,URINE 0 /HPF (0-4)
[2016-07-14] MEDS: IV NORMAL SALINE 1000ML BAG 1,000 ML IV SCH ×3 (02:00→21:26)
[2016-07-14 03:00] VITALS: BP 126/56
[2016-07-14] MEDS: VANCOMYCIN PER PHARMACY MC PRN ×2 (03:43→12:40)
[2016-07-14 05:29] LABS: BASO # 0.1 x10^3/uL (0.0-0.2); BASO % 0 % (0-3); EOS % 0 % (0-3); HEMATOCRIT 29.3 % (39.0-53.0); HEMOGLOBIN 9.2 g/dL (13.0-17.5); LYMPH # 0.8 x10^3/uL (1.0-4.8); LYMPH % 6 % (24-48); MEAN CORPUSCULAR HEMOGLOBIN 24 pg (25-35); MEAN CORPUSCULAR HGB CONC 31 g/dL (31-37); MEAN CORPUSCULAR VOLUME 76 fL (79-100); MONO % 9 % (0-9); NEUT % 84 % (31-73); PLATELET COUNT 189 x10^3/uL (140-400); RED BLOOD COUNT 3.87 x10^6/uL (4.30-5.70); RED CELL DISTRIBUTION WIDTH 25.4 % (11.5-14.5); WHITE BLOOD COUNT 14.1 x10^3/uL (4.0-11.0)
[2016-07-14 05:33] LABS: CALCIUM 7.8 mg/dL (8.5-10.1); GFR 72.8
[2016-07-14] MEDS: PIPERACILLIN/TAZOBACTAM 4.5 GM in IV NORMAL SALINE 100ML 100 ML IV SCH ×3 (05:52→17:49)
[2016-07-14 07:00] VITALS: BP 139/65
--- NOTE | 2016-07-14 07:06 | EKG ---
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
[2016-07-14] MEDS: IPRATRPIUM/ALBUTEROL 0.5/2.5MG 3 ML NEBU. NEB SCH ×5 (08:00→20:13)
--- NOTE | 2016-07-14 08:23 | RAD ---
Portable chest, 07/13/2016: History: Generalized weakness Comparison is made to a study from 06/12/2016. The heart size and pulmonary vascularity are within normal limits. There is calcific plaquing of the aorta. There is a hazy left basilar opacity. There is blunting of left lateral costophrenic angle suggesting a component of pleural fluid. Pleural effusions were evident on the CT study from 06/22/2016. The upper lung bucio are clear. IMPRESSION: Mild left basilar opacity suggesting a small amount of residual or recurrent pleural fluid and underlying atelectasis/infiltrate. Follow-up PA and lateral chest radiographs are suggested for further evaluation.
[2016-07-14] MEDS ORDERED: LORazepam 0.5 MG TABLET PO PRN (09:15)
--- NOTE | 2016-07-14 09:21 | PDOC ---
Provider Note Provider Note pt seen and examined, full report dictated. Just released from long stay at [facility] and appears to have a new pneumonia with lung atelectasis/ infiltrate on CXR and elevated WBC but also has unresolved heel ulcers with increased redness since discharge AUBRIE BLANDON MD Jul 14, 2016 09:21
[2016-07-14 11:15] VITALS: BP 135/58
[2016-07-14] MEDS ORDERED: INSULIN REGULAR 100 UNIT/ML 10ML VIAL. SQ SCH (11:30)
[2016-07-14] MEDS ORDERED: NPH HUMAN INSULIN ISOPHANE SQ SCH ×2 (11:30→17:00)
[2016-07-14] MEDS ORDERED: INSU100I13 SQ (11:50)
[2016-07-14] MEDS: ALBUTEROL SULFATE 2.5 MG/3 ML NEBU. NEB SCH ×3 (12:00→20:00)
[2016-07-14] MEDS: APIXABAN 5 MG TABLET. PO SCH ×2 (12:12→21:24)
[2016-07-14] MEDS: POTASSIUM CHLORIDE 10 MEQ TABLET.ER. PO SCH (12:13)
[2016-07-14] MEDS: INSULIN ASPART 300 UNITS/3 ML INSULN.PEN SQ SCH ×2 (12:22→17:20)
[2016-07-14] MEDS ORDERED: VANCOMYCIN HCL 125 MG PO SCH (13:00)
[2016-07-14] MEDS: ANTI-COAG MONITOR BY PHARMACY. MC PRN (13:49)
[2016-07-14 15:04] VITALS: BP 131/60
[2016-07-14] MEDS: VANCOMYCIN 1.5 GM in IV NORMAL SALINE 500ML BAG 500 ML IV SCH (15:37)
--- NOTE | 2016-07-14 16:42 | RAD ---
Portable chest, 07/14/2016: History: Pneumonia Comparison is made to yesterday's study. The heart is within normal limits in size. The pulmonary vascularity has worsened and appears congested. There are mild ongoing basilar opacities compatible with infiltrate and underlying pleural fluid. There is increasing loss of definition of the hemidiaphragms. IMPRESSION: Vascular congestion with worsening basilar opacities most likely due to congestive heart failure. A component of pneumonia cannot be excluded.
[2016-07-14 19:00] VITALS: BP 135/62
[2016-07-14] MEDS ORDERED: FUROSEMIDE 20 MG/2 ML VIAL. IVP ONE (19:00)
[2016-07-14] MEDS: BUDESONIDE 0.5 MG/2 ML NEBU. NEB SCH (20:13)
[2016-07-14] MEDS: LOSARTAN POTASSIUM 50 MG TABLET. PO SCH (21:23)
[2016-07-14] MEDS: ZOLPIDEM 5 MG TABLET. PO PRN (21:24)
[2016-07-14] MEDS: TAMSULOSIN 0.4 MG CAP.ER.24H. PO SCH (21:24)
[2016-07-14] MEDS: ASCORBIC ACID 500 MG TABLET PO SCH (21:24)
[2016-07-14] MEDS: SIMVASTATIN 40 MG TABLET. PO SCH (21:24)
[2016-07-14] MEDS: NYSTATIN TOPICAL POWDER 15GM BOTTLE. TP SCH (21:27)
[2016-07-14] MEDS: INSULIN DETEMIR 300 UNITS/3 ML INSULN.PEN. SQ SCH (21:37)
--- NOTE | 2016-07-14 22:31 | HP ---
ADMIT DATE: 07/14/2016 ADMISSION DIAGNOSIS: Healthcare-acquired pneumonia. HISTORY OF PRESENT ILLNESS: A 75-year-old white male who was just released from [facility] to home. He maximized his alf benefit there. He had pretty significant malnutrition and lower extremity edema that led to pressure ulcers on his heel. Those were addressed. His strength improved and he got close to his baseline. He has some underlying diabetes, multiple hip dislocations and has difficulty ambulating. He got home and was unable to stand under his own power due to his generalized weakness. EMS was summoned, brought to the Emergency Room, found to have a leukocytosis and abnormal chest x-ray and admitted with HCAP. He does not admit to any fever, chills or overnight night sweats. He does not admit to any aspiration symptoms. He denies cough or significant sputum production. He does admit to nausea and in the ER record his apparently admitted that he had vomited. PAST MEDICAL HISTORY: Type 2 diabetes, hyperlipidemia, DVT behind his left knee with a pulmonary embolus, small-bowel obstruction, C. difficile colitis and multiple hip dislocations. PAST SURGICAL HISTORY: Include a colectomy, hip replacement, exploratory lap, foreign body removal, cataract extraction. SOCIAL HISTORY: Negative for alcohol or drug use. He is . FAMILY HISTORY: Noncontributory. ALLERGIES: He has no known drug allergies. HOME MEDICATIONS: Include Eliquis 5 mg b.i.d., Advair 100/50 one puff b.i.d., Lasix 40 daily, Lantus 18 units at bedtime, mealtime insulin unknown dose, lorazepam 0.5 mg q. 6 hours p.r.n., losartan 50 mg daily, potassium 10 mEq daily, simvastatin 40 mg at bedtime, tamsulosin 0.4 mg at bedtime, zolpidem 5 mg at bedtime and he has been on oral vancomycin. He had not had any recent diarrhea though apparently. REVIEW OF SYSTEMS: A 10-point review of systems, he pretty much denies everything. He denies chest pain or palpitations. He denies cough. He does admit that he is still weak. He denies pain in his heel. He denies acute joint pain. HEENT: He denies any acute symptoms, changes from baseline. PHYSICAL EXAMINATION: GENERAL: He is alert and he is oriented, and remembers me from prior visits. HEENT: Unremarkable. Mucous membranes are little dry, but no other specific findings. NECK: Supple. HEART: Regular rate and rhythm. LUNGS: Clear anteriorly, diminished breath sounds in the bases with some crackles. ABDOMEN: Obese, soft, nondistended. Surgical scar is noted. EXTREMITIES: Trace of edema bilaterally that pits. He has a couple of eschars on the right heel without any purulence underneath it. There is a little bit of softness to the tissue under it, but no definite fluctuance. There is some redness of the left heel without any significant ulceration. There is some dry skin and venous stasis changes of the lower extremities especially in the feet with some fungal changes of the feet and nails. Upper extremity strength is good. LABORATORY DATA: White count 15.9, hemoglobin 9.5, platelets 218, sed rate 24. Hemoglobin was dropped to 9.2 overnight without any evidence of bleeding. Glucose has ranged from 164-190. Calcium is low at 8. Albumin is correspondingly low at 2.2. C-reactive protein is elevated at 134. Electrolytes are normal. EGFR is normal. Urinalysis shows greater than 300 protein, small amount of blood, otherwise unremarkable. MRSA screen is positive. Chest x-ray shows left basilar opacity suggesting residual or recent pleural fluid and underlying atelectasis/infiltrate. followup PA and lateral was ordered today. The patient was able to stand, so a repeat portable was done showing vascular congestion with worsening opacities more consistent with heart failure, but pneumonia cannot be excluded. ASSESSMENT: 1. Healthcare-associated pneumonia, broad-spectrum IV antibiotics. 2. Acute on chronic systolic heart failure. We will diurese. 3. Severe protein malnutrition. 4. Heel ulcers present on admission in the right foot. 5. Failure to thrive, despite weeks of alf therapy. PLAN: He is admitted. Broad-spectrum antibiotics. Wound care consult, nutritional consult PT/OT and will try to continue to diurese. W Lexie BLANDON MD DR: LUIS/jeanie JOB#: [id number] / [id number]
[2016-07-14 23:00] VITALS: BP 138/69
[2016-07-15] MEDS: PIPERACILLIN/TAZOBACTAM 4.5 GM in IV NORMAL SALINE 100ML 100 ML IV SCH ×4 (00:17→17:24)
[2016-07-15] MEDS: VANCOMYCIN 1.5 GM in IV NORMAL SALINE 500ML BAG 500 ML IV SCH ×2 (01:43→15:12)
[2016-07-15 03:00] VITALS: BP 129/62
[2016-07-15 05:21] LABS: BASO % 0 % (0-3); EOS % 2 % (0-3); HEMATOCRIT 29.5 % (39.0-53.0); HEMOGLOBIN 8.9 g/dL (13.0-17.5); LYMPH # 0.9 x10^3/uL (1.0-4.8); LYMPH % 8 % (24-48); MEAN CORPUSCULAR HEMOGLOBIN 23 pg (25-35); MEAN CORPUSCULAR HGB CONC 30 g/dL (31-37); MEAN CORPUSCULAR VOLUME 78 fL (79-100); MONO % 10 % (0-9); NEUT % 80 % (31-73); PLATELET COUNT 196 x10^3/uL (140-400); RED CELL DISTRIBUTION WIDTH 25.8 % (11.5-14.5); WHITE BLOOD COUNT 10.8 x10^3/uL (4.0-11.0)
[2016-07-15 05:48] LABS: CALCIUM 7.5 mg/dL (8.5-10.1); GFR 72.8; POTASSIUM 3.9 mmol/L (3.5-5.1)
[2016-07-15 07:00] VITALS: BP_SYST 115; BP_SYST 134; BP_DIAS 59; BP_DIAS 71
[2016-07-15] MEDS: IPRATRPIUM/ALBUTEROL 0.5/2.5MG 3 ML NEBU. NEB SCH ×4 (07:37→21:02)
[2016-07-15] MEDS: BUDESONIDE 0.5 MG/2 ML NEBU. NEB SCH ×2 (07:37→21:02)
[2016-07-15] MEDS: ANTI-COAG MONITOR BY PHARMACY. MC PRN (07:43)
[2016-07-15] MEDS: ALBUTEROL SULFATE 2.5 MG/3 ML NEBU. NEB SCH ×4 (08:00→20:00)
[2016-07-15] MEDS: INSULIN ASPART 300 UNITS/3 ML INSULN.PEN SQ SCH ×3 (08:00→17:23)
--- NOTE | 2016-07-15 08:45 | RAD ---
FOOT RIGHT 2V Clinical Indication: Non-healing diabetic ulcers Comparison: June 12, 2016. Technique: Frontal and lateral views of the right foot are obtained. Findings: No acute fracture or dislocation is seen. There is suggestion of mild sclerosis involving the medial cuneiform, similar to the previous exam.. No definite osseous erosion is seen. Scattered degenerative changes are redemonstrated throughout the foot. There is soft tissue prominence about the foot diffusely. There is some subcutaneous air demonstrated within the plantar soft tissues overlying the calcaneus. No subcutaneous air is seen extending to the level of the underlying calcaneus. IMPRESSION: Probable ulceration along the plantar aspect over the calcaneus, without underlying bony erosion.
[2016-07-15] MEDS: APIXABAN 5 MG TABLET. PO SCH ×2 (09:27→20:36)
[2016-07-15] MEDS: MULTIVITAMIN with MINERAL TABLET. PO SCH (09:27)
[2016-07-15] MEDS: ASCORBIC ACID 500 MG TABLET PO SCH ×2 (09:27→20:39)
[2016-07-15] MEDS: POTASSIUM CHLORIDE 10 MEQ TABLET.ER. PO SCH (09:27)
[2016-07-15] MEDS: NYSTATIN TOPICAL POWDER 15GM BOTTLE. TP SCH ×2 (09:28→20:38)
[2016-07-15] MEDS ORDERED: MORPHINE SULFATE 2 MG/ML DISP.SYRIN. IV PRN (09:30)
[2016-07-15] MEDS ORDERED: FUROSEMIDE 40 MG TABLET. PO SCH (09:30)
--- NOTE | 2016-07-15 09:41 | PDOC ---
SUBJECTIVE Subjective Pt states that he is very significant pain in his right foot. Feels that his breathing is okay. He is not coughing. Denies any chest pain. OBJECTIVE Vital Signs Vital Signs Date Time Temp Pulse Resp B/P Pulse Ox O2 Delivery O2 Flow Rate FiO2 07/15/16 07:37 100 2.5 07/15/16 03:00 97.7 57 20 129/62 95 Nasal Cannula 2.0 97.7 07/14/16 23:00 97.4 61 20 138/69 91 Nasal Cannula 2.0 97.4 07/14/16 21:23 61 135/62 07/14/16 20:15 2.0 07/14/16 20:00 Nasal Cannula 3.0 07/14/16 19:00 97.9 61 18 135/62 92 Nasal Cannula 2.0 97.9 07/14/16 15:56 88 2.0 07/14/16 15:04 97.7 67 18 131/60 92 Nasal Cannula 2.0 97.7 07/14/16 11:19 95 3.0 07/14/16 11:15 97.7 69 20 135/58 93 Nasal Cannula 2.0 97.7 I & O Intake and Output 07/15/16 06:59 Intake Total 1100 ml Output Total 2 ml Balance 1098 ml Intake Oral 1100 ml Output Urine Total 2 ml # Voids 6 # Bowel Movements 4 PHYSICAL EXAM Physical Exam GEN: mild distress, AOx3 HEENT: MMM, EOMI, no scleral icterus/injection Cardiac: RRR, no M/R/G Lungs: crackles in bases bilaterally, regular breathing rate, mildly increased effort Abd: non distended Ext: in boots Neuro: CN2-12 GI ASSESSMENT/PLAN Assessment/Plan Pt is a 75yo CM admitted for HCAP 1)Leukocytosis- either 2/2 HCAP or infection in right heel. Possibility that CXR abnormalities are related to CHF. Will get repeat CXR in the morning. Pt currently being treated for HCAP with broad spectrum abx. CTM. Leukocytosis has resolved this morning 2)Anemia- acute on chronic. No active bleeding, CTM 3)CHF- no recent ECHO seen in the system. Pt currently receiving Lasix 40mg qday. CTM 4)DM2- with recent HbA1C of 6.6. Pt continued on Levemir 18units QHS and has SSI available 5)HLD- pt continued on Simvastatin 40mg 6)HTN- well controlled, pt continued on Losartan 50mg 7)COPD- well controlled. Pt transitioned to Pulmicort and continued on Duonebs and Albuterol 8)PAD- pt was discharged on Plavix, but now currently on Eliquis. Will try to obtain previous records Problems: COMMENT Lab Laboratory Tests Test 07/14/16 11:07 07/14/16 15:50 07/14/16 20:53 07/15/16 04:40 Glucose (Fingerstick) 209mg/dL (70-99) 226mg/dL (70-99) Erythrocyte Sedimentation Rate 24 (0-15) C-Reactive Protein, Quantitative 134.3mg/L (0-3.3) White Blood Count 10.8x10^3/uL (4.0-11.0) Red Blood Count 3.80x10^6/uL (4.30-5.70) Hemoglobin 8.9g/dL (13.0-17.5) Hematocrit 29.5% (39.0-53.0) Mean Corpuscular Volume 78fL (79-100) Mean Corpuscular Hemoglobin 23pg (25-35) Mean Corpuscular Hemoglobin Concent 30g/dL (31-37) Red Cell Distribution Width 25.8% (11.5-14.5) Platelet Count 196x10^3/uL (140-400) Neutrophils (%) (Auto) 80% (31-73) Lymphocytes (%) (Auto) 8% (24-48) Monocytes (%) (Auto) 10% (0-9) Eosinophils (%) (Auto) 2% (0-3) Basophils (%) (Auto) 0% (0-3) Neutrophils # (Auto) 8.6x10^3uL (1.8-7.7) Lymphocytes # (Auto) 0.9x10^3/uL (1.0-4.8) Monocytes # (Auto) 1.1x10^3/uL (0.0-1.1) Eosinophils # (Auto) 0.2x10^3/uL (0.0-0.7) Basophils # (Auto) 0.0x10^3/uL (0.0-0.2) Sodium Level 143mmol/L (136-145) Potassium Level 3.9mmol/L (3.5-5.1) Chloride Level 109mmol/L (98-107) Carbon Dioxide Level 24mmol/L (21-32) Anion Gap 10 (6-14) Blood Urea Nitrogen 23mg/dL (8-26) Creatinine 1.0mg/dL (0.7-1.3) Estimated GFR (Cockcroft-Gault) 72.8 Glucose Level 147mg/dL (70-99) Calcium Level 7.5mg/dL (8.5-10.1) BRITTNEY MYERS MD Jul 15, 2016 09:41
[2016-07-15] MEDS: oxyCODONE/APAP 5/325 1 TAB TABLET PO PRN ×2 (09:42→20:37)
[2016-07-15 11:00] VITALS: BP 134/71
[2016-07-15] MEDS: MUPIROCIN 2 % NASAL OINTMENT 22GM TUBE. NS SCH ×2 (11:08→20:38)
[2016-07-15 15:00] VITALS: BP 134/57
[2016-07-15] MEDS: VANCOMYCIN PER PHARMACY MC PRN (15:12)
[2016-07-15 19:00] VITALS: BP 141/63
[2016-07-15] MEDS: TAMSULOSIN 0.4 MG CAP.ER.24H. PO SCH (20:36)
[2016-07-15] MEDS: LOSARTAN POTASSIUM 50 MG TABLET. PO SCH (20:37)
[2016-07-15] MEDS: SIMVASTATIN 40 MG TABLET. PO SCH (20:37)
[2016-07-15] MEDS: ZOLPIDEM 5 MG TABLET. PO PRN (20:37)
[2016-07-15] MEDS: INSULIN DETEMIR 300 UNITS/3 ML INSULN.PEN. SQ SCH (20:47)
[2016-07-15 23:00] VITALS: BP 180/60
[2016-07-16] MEDS: PIPERACILLIN/TAZOBACTAM 4.5 GM in IV NORMAL SALINE 100ML 100 ML IV SCH ×5 (00:16→23:40)
[2016-07-16] MEDS: VANCOMYCIN 1.5 GM in IV NORMAL SALINE 500ML BAG 500 ML IV SCH ×2 (02:03→14:42)
[2016-07-16 03:00] VITALS: BP 128/56
[2016-07-16 04:06] LABS: BASO % 0 % (0-3); EOS % 1 % (0-3); HEMATOCRIT 28.6 % (39.0-53.0); HEMOGLOBIN 8.6 g/dL (13.0-17.5); LYMPH # 0.9 x10^3/uL (1.0-4.8); LYMPH % 8 % (24-48); MEAN CORPUSCULAR HEMOGLOBIN 23 pg (25-35); MEAN CORPUSCULAR HGB CONC 30 g/dL (31-37); MEAN CORPUSCULAR VOLUME 77 fL (79-100); MONO % 9 % (0-9); NEUT % 81 % (31-73); PLATELET COUNT 182 x10^3/uL (140-400); RED BLOOD COUNT 3.72 x10^6/uL (4.30-5.70); RED CELL DISTRIBUTION WIDTH 25.1 % (11.5-14.5); WHITE BLOOD COUNT 11.6 x10^3/uL (4.0-11.0)
[2016-07-16 07:00] VITALS: BP 146/70
[2016-07-16] MEDS: BUDESONIDE 0.5 MG/2 ML NEBU. NEB SCH ×2 (07:23→20:36)
[2016-07-16] MEDS: IPRATRPIUM/ALBUTEROL 0.5/2.5MG 3 ML NEBU. NEB SCH ×4 (07:23→20:36)
[2016-07-16] MEDS: DEXTROSE 50% 25 GM / 50ML DISP.SYRIN. IV PRN (07:45)
[2016-07-16] MEDS: ANTI-COAG MONITOR BY PHARMACY. MC PRN (07:59)
[2016-07-16] MEDS: INSULIN ASPART 300 UNITS/3 ML INSULN.PEN SQ SCH ×3 (08:00→17:00)
[2016-07-16] MEDS: POTASSIUM CHLORIDE 10 MEQ TABLET.ER. PO SCH (08:01)
--- NOTE | 2016-07-16 09:10 | PDOC ---
SUBJECTIVE Subjective Pt states that he is feeling good this morning, although his lungs sound much worse. He denies having any pain. Denies productive cough OBJECTIVE Vital Signs Vital Signs Date Time Temp Pulse Resp B/P Pulse Ox O2 Delivery O2 Flow Rate FiO2 07/16/16 08:00 Nasal Cannula 2.5 07/16/16 07:24 94 2.5 07/16/16 03:00 97.5 51 20 128/56 94 Nasal Cannula 2.0 97.5 07/15/16 23:00 99.9 82 20 180/60 91 Nasal Cannula 2.0 99.9 07/15/16 21:48 94 Nasal Cannula 2.5 07/15/16 20:59 94 2.5 07/15/16 20:37 18 90 Nasal Cannula 2.5 07/15/16 20:37 78 134/57 07/15/16 20:00 Nasal Cannula 2.0 07/15/16 19:00 99.9 83 20 141/63 93 Nasal Cannula 2.0 99.9 07/15/16 15:42 2.5 07/15/16 15:00 97.7 78 20 134/57 90 Nasal Cannula 2.0 97.7 07/15/16 11:51 2.5 07/15/16 11:00 97.5 70 18 134/71 97 Nasal Cannula 2.0 97.5 07/15/16 10:42 18 07/15/16 10:12 18 Nasal Cannula 2.0 07/15/16 09:42 24 Nasal Cannula 2.0 07/15/16 09:42 20 2.0 I & O Intake and Output 07/16/16 07:00 Intake Total 2920 ml Balance 2920 ml Intake Oral 1370 ml IV Total 1550 ml # Voids 7 # Bowel Movements 1 PHYSICAL EXAM Physical Exam GEN: NAD, AOx3 HEENT: MMM, EOMI, no scleral icterus/injection Cardiac: RRR, no M/R/G Lungs: regular breathing rate, expiratory wheezing throughout Abd: non distended Ext: in boots Neuro: CN2-12 GI ASSESSMENT/PLAN Assessment/Plan Pt is a 75yo CM admitted for HCAP 1)Leukocytosis- either 2/2 HCAP or infection in right heel. Possibility that CXR abnormalities are related to CHF. Repeat CXR this morning not officially read but thought initially pulmonary edema looked worse; on inverse images though, edema appears to have resolved. Will wait for official read. Pt currently being treated for HCAP with broad spectrum abx. CTM. Leukocytosis improved, but still having mild fever 2)Anemia- acute on chronic. No active bleeding, CTM 3)CHF- no recent ECHO seen in the system. Transitioning to IV Lasix today. 4)DM2- with recent HbA1C of 6.6. Pt had low blood sugar this morning, will decrease Levemir to 15 units QHS. Has SSI available 5)HLD- pt continued on Simvastatin 40mg 6)HTN- well controlled, pt continued on Losartan 50mg 7)COPD- initially well controlled, but pt starting to have wheezing this morning. Will start Prednisone today. Pt transitioned to Pulmicort and continued on Duonebs and Albuterol 8)PAD- pt was discharged on Plavix, but now currently on Eliquis. Will try to obtain previous records Problems: COMMENT Lab Laboratory Tests Test 07/15/16 10:45 07/15/16 14:25 07/15/16 16:23 07/15/16 20:43 Glucose (Fingerstick) 136mg/dL (70-99) 158mg/dL (70-99) 138mg/dL (70-99) Vancomycin Level Trough 17.9mcg/mL (10.0-20.0) Vancomycin Last Dose Date 07/15/16 Vancomycin Last Dose Time 0300 Test 07/16/16 03:35 07/16/16 08:01 White Blood Count 11.6x10^3/uL (4.0-11.0) Red Blood Count 3.72x10^6/uL (4.30-5.70) Hemoglobin 8.6g/dL (13.0-17.5) Hematocrit 28.6% (39.0-53.0) Mean Corpuscular Volume 77fL (79-100) Mean Corpuscular Hemoglobin 23pg (25-35) Mean Corpuscular Hemoglobin Concent 30g/dL (31-37) Red Cell Distribution Width 25.1% (11.5-14.5) Platelet Count 182x10^3/uL (140-400) Neutrophils (%) (Auto) 81% (31-73) Lymphocytes (%) (Auto) 8% (24-48) Monocytes (%) (Auto) 9% (0-9) Eosinophils (%) (Auto) 1% (0-3) Basophils (%) (Auto) 0% (0-3) Neutrophils # (Auto) 9.4x10^3uL (1.8-7.7) Lymphocytes # (Auto) 0.9x10^3/uL (1.0-4.8) Monocytes # (Auto) 1.1x10^3/uL (0.0-1.1) Eosinophils # (Auto) 0.1x10^3/uL (0.0-0.7) Basophils # (Auto) 0.0x10^3/uL (0.0-0.2) Glucose (Fingerstick) 113mg/dL (70-99) BRITTNEY MYERS MD Jul 16, 2016 09:10
[2016-07-16] MEDS: MULTIVITAMIN with MINERAL TABLET. PO SCH (09:15)
[2016-07-16] MEDS: predniSONE 20 MG TABLET PO SCH (09:15)
[2016-07-16] MEDS: ASCORBIC ACID 500 MG TABLET PO SCH ×2 (09:15→20:54)
[2016-07-16] MEDS: MUPIROCIN 2 % NASAL OINTMENT 22GM TUBE. NS SCH ×2 (09:16→22:12)
[2016-07-16] MEDS: NYSTATIN TOPICAL POWDER 15GM BOTTLE. TP SCH ×2 (09:16→22:12)
[2016-07-16] MEDS: APIXABAN 5 MG TABLET. PO SCH ×2 (09:16→20:54)
[2016-07-16] MEDS: FUROSEMIDE 40 MG/4 ML VIAL. IVP SCH (09:16)
--- NOTE | 2016-07-16 10:02 | RAD ---
CHEST AP ONLY Clinical Indication: Respiratory failure Comparison: July 14, 2016. Technique: Upright portable AP view of the chest is obtained. Findings: Bibasilar opacities appear somewhat improved on the right, similar in the left. No pneumothorax is seen. Cardiomediastinal silhouette appears stable in size. Visualized osseous structures and overlying soft tissues demonstrate no acute interval change. IMPRESSION: Slight improved right basilar opacity, with persistent left basilar opacity likely edema or infiltrate.
[2016-07-16] MEDS: VANCOMYCIN PER PHARMACY MC PRN (10:19)
[2016-07-16] MEDS: oxyCODONE/APAP 5/325 1 TAB TABLET PO PRN (10:34)
[2016-07-16 11:00] VITALS: BP 114/62
[2016-07-16 15:00] VITALS: BP 152/77
[2016-07-16 19:00] VITALS: BP 137/70
[2016-07-16] MEDS: TAMSULOSIN 0.4 MG CAP.ER.24H. PO SCH (20:54)
[2016-07-16] MEDS: SIMVASTATIN 40 MG TABLET. PO SCH (20:54)
[2016-07-16] MEDS: LOSARTAN POTASSIUM 50 MG TABLET. PO SCH (20:54)
[2016-07-16] MEDS: INSULIN DETEMIR 300 UNITS/3 ML INSULN.PEN. SQ SCH (20:59)
[2016-07-16 23:00] VITALS: BP 121/70
[2016-07-17] MEDS: ZOLPIDEM 5 MG TABLET. PO PRN ×2 (01:01→21:59)
[2016-07-17 03:00] VITALS: BP 147/78
[2016-07-17] MEDS: VANCOMYCIN 1.5 GM in IV NORMAL SALINE 500ML BAG 500 ML IV SCH ×2 (03:36→15:05)
[2016-07-17] MEDS: PIPERACILLIN/TAZOBACTAM 4.5 GM in IV NORMAL SALINE 100ML 100 ML IV SCH ×3 (06:05→17:35)
[2016-07-17] MEDS ORDERED: CALCIUM CARBONATE 500 MG TAB.CHEW PO PRN (06:30)
[2016-07-17 07:45] VITALS: BP 151/83
[2016-07-17] MEDS: POTASSIUM CHLORIDE 10 MEQ TABLET.ER. PO SCH (08:00)
[2016-07-17] MEDS: INSULIN ASPART 300 UNITS/3 ML INSULN.PEN SQ SCH ×3 (08:00→17:00)
[2016-07-17] MEDS: AMINO AC 3%/ELECTROLYTE/GLYCER 1,000 ML IV SCH ×2 (08:45→23:19)
[2016-07-17] MEDS: BUDESONIDE 0.5 MG/2 ML NEBU. NEB SCH ×2 (09:00→09:01)
[2016-07-17] MEDS: MUPIROCIN 2 % NASAL OINTMENT 22GM TUBE. NS SCH ×2 (09:00→23:19)
[2016-07-17] MEDS: metroNIDAZOLE 250 MG TABLET PO SCH ×3 (09:00→22:01)
[2016-07-17] MEDS: APIXABAN 5 MG TABLET. PO SCH ×2 (09:00→21:59)
[2016-07-17] MEDS: predniSONE 20 MG TABLET PO SCH (09:00)
[2016-07-17] MEDS: MULTIVITAMIN with MINERAL TABLET. PO SCH (09:00)
[2016-07-17] MEDS: ASCORBIC ACID 500 MG TABLET PO SCH ×2 (09:00→22:00)
[2016-07-17] MEDS: NYSTATIN TOPICAL POWDER 15GM BOTTLE. TP SCH ×2 (09:00→22:02)
[2016-07-17] MEDS: IPRATRPIUM/ALBUTEROL 0.5/2.5MG 3 ML NEBU. NEB SCH ×4 (09:01→20:56)
[2016-07-17] MEDS: FUROSEMIDE 40 MG/4 ML VIAL. IVP SCH (09:46)
[2016-07-17] MEDS: PANTOPRAZOLE 40 MG TABLET.DR. PO SCH (11:51)
[2016-07-17 11:56] VITALS: BP 139/64
--- NOTE | 2016-07-17 12:21 | PDOC ---
PROGRESS NOTES Subjective Subjective He has developed vomiting and bloating, hx of past obstruction, hx of C.diff, WBC was back to normal yesterday but up slightly this am, feet are wrapped and offloaded Objective Objective Vital Signs Date Time Temp Pulse Resp B/P Pulse Ox O2 Delivery O2 Flow Rate FiO2 07/17/16 12:08 93 2.0 07/17/16 11:56 98.0 74 16 139/64 Nasal Cannula 98.0 Intake and Output 07/17/16 06:59 Intake Total 2090 ml Output Total 1595 ml Balance 495 ml Intake Oral 640 ml IV Total 1450 ml Output Urine Total 1595 ml # Voids 3 # Bowel Movements 1 Physical Exam Abdomen: Other (distended, tender, emesis basin in his lap) Heart: Regular rate Extremities: No clubbing, No cyanosis, Other (feet wrapped, offloaded heels, low air flow mattress) General: Alert, Oriented X3, Cooperative HEENT: Atraumatic Lungs: Clear to auscultation Psych/Mental Status: Mental status NL, Mood NL Assessment Assessment Problems Medical Problems: (1) Anemia Status: Acute (2) Cellulitis Status: Acute (3) HCAP (healthcare-associated pneumonia) Status: Acute (4) Severe protein-calorie malnutrition (5) abdominal bloating with emesis, concerning for SBO, abd series, NG to be placed, if he has diarrhea will need Cdiff toxin Status: Acute Comment Review of Relevant I have reviewed the following items tenisha (where applicable) has been applied. Labs Laboratory Tests Test 07/15/16 14:25 07/15/16 16:23 07/15/16 20:43 07/16/16 03:35 Vancomycin Level Trough 17.9mcg/mL (10.0-20.0) Vancomycin Last Dose Date 07/15/16 Vancomycin Last Dose Time 0300 Glucose (Fingerstick) 158mg/dL (70-99) 138mg/dL (70-99) White Blood Count 11.6x10^3/uL (4.0-11.0) Red Blood Count 3.72x10^6/uL (4.30-5.70) Hemoglobin 8.6g/dL (13.0-17.5) Hematocrit 28.6% (39.0-53.0) Mean Corpuscular Volume 77fL (79-100) Mean Corpuscular Hemoglobin 23pg (25-35) Mean Corpuscular Hemoglobin Concent 30g/dL (31-37) Red Cell Distribution Width 25.1% (11.5-14.5) Platelet Count 182x10^3/uL (140-400) Neutrophils (%) (Auto) 81% (31-73) Lymphocytes (%) (Auto) 8% (24-48) Monocytes (%) (Auto) 9% (0-9) Eosinophils (%) (Auto) 1% (0-3) Basophils (%) (Auto) 0% (0-3) Neutrophils # (Auto) 9.4x10^3uL (1.8-7.7) Lymphocytes # (Auto) 0.9x10^3/uL (1.0-4.8) Monocytes # (Auto) 1.1x10^3/uL (0.0-1.1) Eosinophils # (Auto) 0.1x10^3/uL (0.0-0.7) Basophils # (Auto) 0.0x10^3/uL (0.0-0.2) Test 07/16/16 07:40 07/16/16 08:01 07/16/16 11:28 07/16/16 16:44 Glucose (Fingerstick) 58mg/dL (70-99) 113mg/dL (70-99) 135mg/dL (70-99) 159mg/dL (70-99) Test 07/16/16 20:50 07/17/16 08:24 Glucose (Fingerstick) 223mg/dL (70-99) 107mg/dL (70-99) Laboratory Tests Test 07/16/16 16:44 07/16/16 20:50 07/17/16 08:24 Glucose (Fingerstick) 159mg/dL (70-99) 223mg/dL (70-99) 107mg/dL (70-99) Microbiology 07/13/16 Blood Culture - Preliminary, Resulted NO GROWTH AFTER 3 DAYS Medications Current Medications Sodium Chloride (Iv Sodium Chloride 0.9% 1000ml Bag) 1,000 ml @ 100 mls/hr Q10H IV Last administered on 07/13/16t 21:40; Start 07/13/16 at 21:30; Stop at 07:29; Status DC Ondansetron HCl 4 mg 4 mg PRN Q8HRS PRN IV NAUSEA/VOMITING; Start 07/13/16 at 23:30; Stop 07/14/16 at 23:29; Status DC Sodium Chloride (Iv Sodium Chloride 0.9% 1000ml Bag) 1,000 ml @ 100 mls/hr Q10H IV Last administered on 07/14/16 21:26; Start 07/13/16 at 23:26; Stop at 23:25; Status DC Acetaminophen (Tylenol) 650 mg PRN Q4HRS PRN PO FEVER Last administered on 07/14 21:24; Start 07/13/16 at 23:30; Stop 07/14/16 at 23:29; Status DC Albuterol/ Ipratropium (Duoneb) 3 ml RTQID NEB Last administered on 07/14/16 11:19; Start 07/14/16 at 08:00; Stop 07/14/16 at 12:35; Status DC Vancomycin HCl (Vanco Per Pharmacy) 1 each PRN DAILY PRN MC SEE COMMENTS Last administered on 07/16/16 10:19; Start 07/13/16 at 23:30 Piperacillin Sod/ Tazobactam Sod (Zosyn Per Pharmacy) 1 each PRN DAILY PRN MC SEE COMMENTS; Start 07/13/16 at 23:30 Levofloxacin/ Dextrose 1 each 1 each PRN DAILY PRN MC SEE COMMENTS; Start 07/13 at 23:30 Vancomycin HCl 2 gm/Sodium Chloride 500 ml @ 250 mls/hr 1X ONCE IV Last administered on 07/14/16 03:07; Start 07/14/16 at 00:00; Stop 07/14/16 at 01:59 ; Status DC Piperacillin Sod/ Tazobactam Sod 4.5 gm/Sodium Chloride 100 ml @ 200 mls/hr 1X ONCE IV Last administered on 07/14/16 02:00; Start 07/13/16 at 23:45; Stop 07/14/16 at 00:14; Status DC Levofloxacin/ Dextrose 150 ml @ 100 mls/hr 1X ONCE IV Last administered on 23:43; Start 07/14/16 at 00:30; Stop 07/14/16 at 01:59; Status DC Levofloxacin/ Dextrose 150 ml @ 100 mls/hr Q24H IV Last administered on 22:09; Start 07/14/16 at 23:00 Piperacillin Sod/ Tazobactam Sod 4.5 gm/Sodium Chloride 100 ml @ 200 mls/hr Q6HRS IV Last administered on 07/17/16 11:51; Start 07/14/16 at 06:00 Vancomycin HCl/ Sodium Chloride (Iv Sodium Chloride 0.9% 500ml Bag) 500 ml @ 250 mls/hr Q12H IV Last administered on 07/17/16 03:36; Start 07/14/16 at 15: 00 Vancomycin HCl 1 each 1X ONCE MC ; Start 07/15/16 at 14:30; Stop 07/15/16 at 14 :31; Status DC Apixaban (Eliquis) 5 mg BID PO Last administered on 07/16/16 20:54; Start at 09:30 Furosemide (Lasix) 40 mg DAILY PO Last administered on 07/15/16 09:27; Start 07/15/16 at 09:30; Stop 07/16/16 at 09:07; Status DC Insulin Human Regular (Novolin R Vial) 100 unit TIDAC SQ ; Start 07/14/16 at 11: 30; Stop 07/14/16 at 12:04; Status DC Lorazepam (Ativan) 0.5 mg PRN Q6HRS PRN PO ANXIETY / AGITATION Last administered on 07/15/16 01:42; Start 07/14/16 at 09:15 Losartan Potassium (Cozaar) 50 mg HS PO Last administered on 07/16/16 20:54; Start 07/14/16 at 21:00 Simvastatin (Zocor) 40 mg QHS PO Last administered on 07/16/16 20:54; Start at 21:00 Tamsulosin HCl (Flomax) 0.4 mg QHS PO Last administered on 07/16/16 20:54; Start 07/14/16 at 21:00 Zolpidem Tartrate (Ambien) 5 mg PRN QHS PRN PO INSOMNIA Last administered on 01:01; Start 07/14/16 at 09:15 Budesonide (Pulmicort) 0.5 mg RTBID NEB Last administered on 07/17/16 09:01; Start 07/14/16 at 20:00 Non-Formulary Medication 100 unit DAILYBFRLUN SQ ; Start 07/14/16 at 11:30; Stop 07/14/16 at 12:04; Status DC Non-Formulary Medication 100 unit DAILYBFRSUP SQ ; Start 07/14/16 at 17:00; Stop 07/14/16 at 17:00; Status DC Potassium Chloride (Klor-Con) 10 meq [id number] PO Last administered on 08:01; Start 07/14/16 at 11:00 Non-Formulary Medication 125 mg [id number] PO ; Start 07/14/16 at 13:00; Stop 07/14 at 13:00; Status DC Albuterol/ Ipratropium (Duoneb) 3 ml RTQID NEB Last administered on 07/17/16 12:08; Start 07/14/16 at 12:00 Insulin Aspart (Novolog) 0-7 UNITS TIDWMEALS SQ Last administered on 07/15/16 17:23; Start 07/14/16 at 12:00 Dextrose (Dextrose 50%-Water Syringe) 12.5 gm PRN Q15MIN PRN IV SEE COMMENTS Last administered on 07/16/16 07:45; Start 07/14/16 at 09:15 Info (Anti-Coagulation Monitoring By Pharmacy) 1 each PRN DAILY PRN MC SEE COMMENTS Last administered on 07/16/16 07:59; Start 07/14/16 at 09:15 Albuterol Sulfate (Ventolin Neb Soln) 2.5 mg RTQID NEB ; Start 07/14/16 at 12:00 ; Stop 07/15/16 at 20:42; Status DC Insulin Detemir (Levemir) 18 units QHS SQ Last administered on 07/15/16 20:47 ; Start 07/14/16 at 21:00; Stop 07/16/16 at 09:04; Status DC Nystatin (Nystop) 1 magda BID TP Last administered on 07/17/16 09:00; Start at 21:00 Multivitamins (Thera M Plus) 1 tab DAILY PO Last administered on 07/16/16 09: 15; Start 07/15/16 at 09:00 Ascorbic Acid (Vitamin C) 500 mg BID PO Last administered on 07/16/16 20:54; Start 07/14/16 at 21:00 Furosemide (Lasix) 20 mg 1X ONCE IVP Last administered on 07/14/16 21:25; Start 07/14/16 at 19:00; Stop 07/14/16 at 19:04; Status DC Oxycodone/ Acetaminophen (Percocet 5/325) 1 tab PRN Q4HRS PRN PO PAIN SEVERE Last administered on 07/16/16 10:34; Start 07/15/16 at 09:30 Morphine Sulfate 2 mg PRN Q2HR PRN IV PAIN Last administered on 07/15/16 09:42 ; Start 07/15/16 at 09:30 Mupirocin (Bactroban) 1 magda BID NS Last administered on 07/17/16 09:00; Start 07/15/16 at 10:00; Stop 07/20/16 at 09:59 Albuterol Sulfate (Ventolin Neb Soln) 2.5 mg PRN Q4HRS PRN NEB COUGH; Start at 20:00 Insulin Detemir (Levemir) 15 units QHS SQ Last administered on 07/16/16 20:59 ; Start 07/16/16 at 21:00 Prednisone (Prednisone) 50 mg DAILY PO Last administered on 07/16/16 09:15; Start 07/16/16 at 10:00 Furosemide (Lasix) 40 mg DAILY IVP Last administered on 07/17/16 09:46; Start 07/16/16 at 09:30 Calcium Carbonate/ Glycine 500 mg 500 mg PRN Q3HRS PRN PO INDIGESTION Last administered on 07/17/16 06:24; Start 07/17/16 at 06:30 Amino Acids/ Glycerin/ Electrolytes (Procalamine) 1,000 ml @ 80 mls/hr [id number] IV Last administered on 07/17/16 08:45; Start 07/17/16 at 08:45 Pantoprazole Sodium (Protonix) 40 mg DAILYAC PO Last administered on 07/17/16 11:51; Start 07/17/16 at 09:00 Metronidazole (Flagyl) 250 mg Q8HRS PO ; Start 07/17/16 at 09:00 Active Scripts Active Advair 100-50 Diskus (Fluticasone/Salmeterol) 1 Each Disk.w.dev 1 Puff IH BID [Vancomycin Hcl] 125 MG/2.5 ML Solution 125 Mg PO [id number] Reported Lantus Solostar (Insulin Glargine,Hum.rec.anlog) 100 Unit/1 Ml Insuln.pen 18 Unit SQ QHS Zolpidem Tartrate 5 Mg Tablet 5 Mg PO PRN QHS PRN Tamsulosin Hcl 0.4 Mg Cap.er.24h 0.4 Mg PO QHS Simvastatin 40 Mg Tablet 1 Tab PO QHS Potassium Chloride 10 Meq Capsule.er 10 Meq PO DAILY Losartan Potassium 50 Mg Tablet 50 Mg PO HS Lorazepam 0.5 Mg Tablet 0.5 Mg PO PRN Q6HRS PRN Lasix (Furosemide) 40 Mg Tablet 40 Mg PO DAILY Humulin R (Insulin Regular, Human) 100 Unit/1 Ml Vial 100 Unit SQ TIDAC Humulin N (Nph, Human Insulin Isophane) 100 Unit/1 Ml Vial 100 Unit SQ DAILYBFRLUN Humulin N (Nph, Human Insulin Isophane) 100 Unit/1 Ml Vial 100 Unit SQ DAILYBFRSUP Eliquis (Apixaban) 5 Mg Tablet 5 Mg PO BID Vitals/I & O Vital Sign - Last 24 Hours 07/16/16 07/16/16 07/16/16 07/16/16 13:07 15:00 16:26 19:00 Temp 97.1 97.1 Pulse 75 70 Resp 18 20 B/P 152/77 137/70 Pulse Ox 99 97 94 O2 Delivery Nasal Cannula Nasal Cannula O2 Flow Rate 2.5 2.0 2.5 2.0 07/16/16 07/16/16 07/16/16 07/16/16 20:38 20:39 20:50 20:54 Pulse 70 B/P 137/70 Pulse Ox 95 95 O2 Delivery Nasal Cannula O2 Flow Rate 2.0 2.0 2.5 07/16/16 07/17/16 07/17/16 07/17/16 23:00 03:00 07:45 09:01 Temp 97.7 97.5 98.1 97.7 97.5 98.1 Pulse 75 80 65 Resp 20 20 17 B/P 121/70 147/78 151/83 Pulse Ox 95 95 94 97 O2 Delivery Nasal Cannula Nasal Cannula Nasal Cannula O2 Flow Rate 2.0 2.0 2.0 2.0 07/17/16 07/17/16 11:56 12:08 Temp 98.0 98.0 Pulse 74 Resp 16 B/P 139/64 Pulse Ox 93 93 O2 Delivery Nasal Cannula O2 Flow Rate 2.0 2.0 Intake and Output 07/16/16 07/16/16 07/17/16 14:59 22:59 06:59 Intake Total 620 ml 620 ml 850 ml Output Total 1120 ml 200 ml 275 ml Balance -500 ml 420 ml 575 ml Nutrition Consultation Dietary Evaluation: Recommendations by RD: Increase Calorie Intake, Protein supplementation Comments: Changed diet to cardiac/ADA Added boost pudding BID - 240kcal and 7g protein per serving - watch blood glucose Rec. MVI and 500mg vit c BID to aid wound healing Expected Outcomes/Goals: to meet >75% est nutr needs Malnutrition Findings: Weight Status: Obese AUBRIE BLANDON MD Jul 17, 2016 12:21
--- NOTE | 2016-07-17 13:30 | RAD ---
Abdomen, 2 views, 07/17/2016: History: Vomiting, distention There is marked gaseous distention of the stomach. Gas is present in other loops of large bowel without significant bowel distention. No free air is seen in the abdomen. There are scattered vascular calcifications. 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 There is severe degenerative change in the lumbar spine. A portion of the chest was included on the upright abdomen film. Right-sided pleural fluid is evident. The left lateral costophrenic angle is not included on this exam. There are prominent pulmonary markings suggesting low-grade interstitial edema versus fibrosis. IMPRESSION: 1. Marked gaseous distention of the stomach. 2. Right-sided pleural effusion. 3. Prominent pulmonary interstitial markings.
[2016-07-17] MEDS: VANCOMYCIN PER PHARMACY MC PRN (13:56)
[2016-07-17] MEDS: ANTI-COAG MONITOR BY PHARMACY. MC PRN (13:59)
[2016-07-17 15:21] VITALS: BP 125/68
--- NOTE | 2016-07-17 15:49 | RAD ---
Indication nasogastric tube placement. A single view targeted to the lower chest and upper abdomen was obtained. A nasogastric tube has its tip in the proximal body of the stomach. Advancement of the tube should be considered. Stomach is somewhat distended with gas. The abdominal gas pattern has a nonobstructive appearance. IMPRESSION: NG tube with its tip in the proximal body of the stomach. The tube should be advanced.
[2016-07-17] MEDS: TAMSULOSIN 0.4 MG CAP.ER.24H. PO SCH (21:58)
[2016-07-17] MEDS: LOSARTAN POTASSIUM 50 MG TABLET. PO SCH (21:59)
[2016-07-17] MEDS: SIMVASTATIN 40 MG TABLET. PO SCH (21:59)
[2016-07-17] MEDS: INSULIN DETEMIR 300 UNITS/3 ML INSULN.PEN. SQ SCH (22:18)
[2016-07-17 23:16] VITALS: BP 148/73
[2016-07-18] MEDS: PIPERACILLIN/TAZOBACTAM 4.5 GM in IV NORMAL SALINE 100ML 100 ML IV SCH ×4 (01:08→18:11)
[2016-07-18] MEDS: VANCOMYCIN 1.5 GM in IV NORMAL SALINE 500ML BAG 500 ML IV SCH ×2 (02:42→15:00)
[2016-07-18 03:16] VITALS: BP 147/63
[2016-07-18 07:09] LABS: CREATININE 0.9 mg/dL (0.7-1.3); GFR 82.3
[2016-07-18] MEDS: PANTOPRAZOLE 40 MG TABLET.DR. PO SCH (07:09)
[2016-07-18] MEDS: metroNIDAZOLE 250 MG TABLET PO SCH ×3 (07:09→20:37)
[2016-07-18 07:15] VITALS: BP 92/54
[2016-07-18] MEDS: BUDESONIDE 0.5 MG/2 ML NEBU. NEB SCH ×2 (07:45→19:37)
[2016-07-18] MEDS: IPRATRPIUM/ALBUTEROL 0.5/2.5MG 3 ML NEBU. NEB SCH ×4 (07:45→19:36)
[2016-07-18] MEDS: INSULIN ASPART 300 UNITS/3 ML INSULN.PEN SQ SCH ×3 (08:00→17:00)
[2016-07-18] MEDS: APIXABAN 5 MG TABLET. PO SCH ×2 (08:06→20:37)
[2016-07-18] MEDS: ASCORBIC ACID 500 MG TABLET PO SCH ×2 (08:06→20:36)
[2016-07-18] MEDS: POTASSIUM CHLORIDE 10 MEQ TABLET.ER. PO SCH (08:06)
[2016-07-18] MEDS: MULTIVITAMIN with MINERAL TABLET. PO SCH (08:06)
[2016-07-18] MEDS: FUROSEMIDE 40 MG/4 ML VIAL. IVP SCH (08:07)
--- NOTE | 2016-07-18 08:41 | PDOC ---
PROGRESS NOTES Subjective Subjective Mr. Mcclain was seen in his lying in bed this morning. Patient still had NG tube in place, currently clamped after just receiving his medications but has over 800cc of bilious colored fluid in suction container. He reported no acute overnight events but he has a sore throat from the NG. Patient stated that he was still feeling distended, was having flatus, had not had a BM (no diarrhea), and felt slight improvement from yesterday. Objective Objective Vital Signs Date Time Temp Pulse Resp B/P Pulse Ox O2 Delivery O2 Flow Rate FiO2 07/18/16 07:46 97 Nasal Cannula 2.0 07/18/16 07:15 98.0 71 18 92/54 98.0 Intake and Output 07/18/16 07:00 Output Total 1175 ml Balance -1175 ml Output Urine Total 1175 ml # Voids 6 Physical Exam Abdomen: Normal bowel sounds, No tenderness, No hepatosplenomegaly, Other ( minimal distension) Heart: Regular rate, Normal S1, Normal S2, No murmurs, Gallops, Rubs Extremities: No clubbing, No cyanosis, No edema General: Alert, Oriented X3, Cooperative, No acute distress HEENT: Atraumatic Lungs: Clear to auscultation, Normal air movement Neck: Supple, No JVD Assessment Assessment Problems Medical Problems: (1) HCAP (healthcare-associated pneumonia) - suspect from aspiration Status: Acute (2) Cellulitis Status: Acute (3) Anemia Status: Acute (4) Severe protein-calorie malnutrition with bilateral heel ulcers POA (5) ileus - repeat abd series today, lozenges for sore throat Status: Acute Comment Review of Relevant I have reviewed the following items tenisha (where applicable) has been applied. Labs Laboratory Tests Test 07/16/16 11:28 07/16/16 16:44 07/16/16 20:50 07/17/16 08:24 Glucose (Fingerstick) 135mg/dL (70-99) 159mg/dL (70-99) 223mg/dL (70-99) 107mg/dL (70-99) Test 07/17/16 11:49 07/17/16 16:29 07/17/16 21:25 07/18/16 06:15 Glucose (Fingerstick) 125mg/dL (70-99) 154mg/dL (70-99) 136mg/dL (70-99) Creatinine 0.9mg/dL (0.7-1.3) Estimated GFR (Cockcroft-Gault) 82.3 Test 07/18/16 07:56 Glucose (Fingerstick) 134mg/dL (70-99) Laboratory Tests Test 07/17/16 11:49 07/17/16 16:29 07/17/16 21:25 07/18/16 06:15 Glucose (Fingerstick) 125mg/dL (70-99) 154mg/dL (70-99) 136mg/dL (70-99) Creatinine 0.9mg/dL (0.7-1.3) Estimated GFR (Cockcroft-Gault) 82.3 Test 07/18/16 07:56 Glucose (Fingerstick) 134mg/dL (70-99) Microbiology 07/13/16 Blood Culture - Preliminary, Resulted NO GROWTH AFTER 4 DAYS Medications Current Medications Sodium Chloride (Iv Sodium Chloride 0.9% 1000ml Bag) 1,000 ml @ 100 mls/hr Q10H IV Last administered on 07/13/16 21:40; Start 07/13/16 at 21:30; Stop at 07:29; Status DC Ondansetron HCl 4 mg 4 mg PRN Q8HRS PRN IV NAUSEA/VOMITING; Start 07/13/16 at 23:30; Stop 07/14/16 at 23:29; Status DC Sodium Chloride (Iv Sodium Chloride 0.9% 1000ml Bag) 1,000 ml @ 100 mls/hr Q10H IV Last administered on 07/14/16 21:26; Start 07/13/16 at 23:26; Stop at 23:25; Status DC Acetaminophen (Tylenol) 650 mg PRN Q4HRS PRN PO FEVER Last administered on 07/14 21:24; Start 07/13/16 at 23:30; Stop 07/14/16 at 23:29; Status DC Albuterol/ Ipratropium (Duoneb) 3 ml RTQID NEB Last administered on 07/14/16 11:19; Start 07/14/16 at 08:00; Stop 07/14/16 at 12:35; Status DC Vancomycin HCl (Vanco Per Pharmacy) 1 each PRN DAILY PRN MC SEE COMMENTS Last administered on 07/17/16 13:56; Start 07/13/16 at 23:30 Piperacillin Sod/ Tazobactam Sod (Zosyn Per Pharmacy) 1 each PRN DAILY PRN MC SEE COMMENTS; Start 07/13/16 at 23:30 Levofloxacin/ Dextrose 1 each 1 each PRN DAILY PRN MC SEE COMMENTS; Start 07/13 at 23:30 Vancomycin HCl 2 gm/Sodium Chloride 500 ml @ 250 mls/hr 1X ONCE IV Last administered on 07/14/16 03:07; Start 07/14/16 at 00:00; Stop 07/14/16 at 01:59 ; Status DC Piperacillin Sod/ Tazobactam Sod 4.5 gm/Sodium Chloride 100 ml @ 200 mls/hr 1X ONCE IV Last administered on 07/14/16 02:00; Start 07/13/16 at 23:45; Stop 07/14/16 at 00:14; Status DC Levofloxacin/ Dextrose 150 ml @ 100 mls/hr 1X ONCE IV Last administered on 23:43; Start 07/14/16 at 00:30; Stop 07/14/16 at 01:59; Status DC Levofloxacin/ Dextrose 150 ml @ 100 mls/hr Q24H IV Last administered on 23:19; Start 07/14/16 at 23:00 Piperacillin Sod/ Tazobactam Sod 4.5 gm/Sodium Chloride 100 ml @ 200 mls/hr Q6HRS IV Last administered on 07/18/16 06:08; Start 07/14/16 at 06:00 Vancomycin HCl/ Sodium Chloride (Iv Sodium Chloride 0.9% 500ml Bag) 500 ml @ 250 mls/hr Q12H IV Last administered on 07/18/16 02:42; Start 07/14/16 at 15: 00 Vancomycin HCl 1 each 1X ONCE MC ; Start 07/15/16 at 14:30; Stop 07/15/16 at 14 :31; Status DC Apixaban (Eliquis) 5 mg BID PO Last administered on 07/18/16 08:06; Start at 09:30 Furosemide (Lasix) 40 mg DAILY PO Last administered on 07/15/16 09:27; Start 07/15/16 at 09:30; Stop 07/16/16 at 09:07; Status DC Insulin Human Regular (Novolin R Vial) 100 unit TIDAC SQ ; Start 07/14/16 at 11: 30; Stop 07/14/16 at 12:04; Status DC Lorazepam (Ativan) 0.5 mg PRN Q6HRS PRN PO ANXIETY / AGITATION Last administered on 07/15/16 01:42; Start 07/14/16 at 09:15 Losartan Potassium (Cozaar) 50 mg HS PO Last administered on 07/17/16 21:59; Start 07/14/16 at 21:00 Simvastatin (Zocor) 40 mg QHS PO Last administered on 07/17/16 21:59; Start at 21:00 Tamsulosin HCl (Flomax) 0.4 mg QHS PO Last administered on 07/17/16 21:58; Start 07/14/16 at 21:00 Zolpidem Tartrate (Ambien) 5 mg PRN QHS PRN PO INSOMNIA Last administered on 21:59; Start 07/14/16 at 09:15 Budesonide (Pulmicort) 0.5 mg RTBID NEB Last administered on 07/18/16 07:45; Start 07/14/16 at 20:00 Non-Formulary Medication 100 unit DAILYBFRLUN SQ ; Start 07/14/16 at 11:30; Stop 07/14/16 at 12:04; Status DC Non-Formulary Medication 100 unit DAILYBFRSUP SQ ; Start 07/14/16 at 17:00; Stop 07/14/16 at 17:00; Status DC Potassium Chloride (Klor-Con) 10 meq [id number] PO Last administered on 08:06; Start 07/14/16 at 11:00 Non-Formulary Medication 125 mg [id number] PO ; Start 07/14/16 at 13:00; Stop 07/14 at 13:00; Status DC Albuterol/ Ipratropium (Duoneb) 3 ml RTQID NEB Last administered on 07/18/16 07:45; Start 07/14/16 at 12:00 Insulin Aspart (Novolog) 0-7 UNITS TIDWMEALS SQ Last administered on 07/15/16 17:23; Start 07/14/16 at 12:00 Dextrose (Dextrose 50%-Water Syringe) 12.5 gm PRN Q15MIN PRN IV SEE COMMENTS Last administered on 07/16/16 07:45; Start 07/14/16 at 09:15 Info (Anti-Coagulation Monitoring By Pharmacy) 1 each PRN DAILY PRN MC SEE COMMENTS Last administered on 07/17/16 13:59; Start 07/14/16 at 09:15 Albuterol Sulfate (Ventolin Neb Soln) 2.5 mg RTQID NEB ; Start 07/14/16 at 12:00 ; Stop 07/15/16 at 20:42; Status DC Insulin Detemir (Levemir) 18 units QHS SQ Last administered on 07/15/16 20:47 ; Start 07/14/16 at 21:00; Stop 07/16/16 at 09:04; Status DC Nystatin (Nystop) 1 magda BID TP Last administered on 07/17/16 22:02; Start at 21:00 Multivitamins (Thera M Plus) 1 tab DAILY PO Last administered on 07/18/16 08: 06; Start 07/15/16 at 09:00 Ascorbic Acid (Vitamin C) 500 mg BID PO Last administered on 07/18/16 08:06; Start 07/14/16 at 21:00 Furosemide (Lasix) 20 mg 1X ONCE IVP Last administered on 07/14/16 21:25; Start 07/14/16 at 19:00; Stop 07/14/16 at 19:04; Status DC Oxycodone/ Acetaminophen (Percocet 5/325) 1 tab PRN Q4HRS PRN PO PAIN SEVERE Last administered on 07/16/16 10:34; Start 07/15/16 at 09:30 Morphine Sulfate 2 mg PRN Q2HR PRN IV PAIN Last administered on 07/15/16 09:42 ; Start 07/15/16 at 09:30 Mupirocin (Bactroban) 1 magda BID NS Last administered on 07/17/16 23:19; Start 07/15/16 at 10:00; Stop 07/20/16 at 09:59 Albuterol Sulfate (Ventolin Neb Soln) 2.5 mg PRN Q4HRS PRN NEB COUGH; Start at 20:00 Insulin Detemir (Levemir) 15 units QHS SQ Last administered on 07/17/16 22:18 ; Start 07/16/16 at 21:00 Prednisone (Prednisone) 50 mg DAILY PO Last administered on 07/16/16 09:15; Start 07/16/16 at 10:00 Furosemide (Lasix) 40 mg DAILY IVP Last administered on 07/18/16 08:07; Start 07/16/16 at 09:30 Calcium Carbonate/ Glycine 500 mg 500 mg PRN Q3HRS PRN PO INDIGESTION Last administered on 07/17/16 06:24; Start 07/17/16 at 06:30 Amino Acids/ Glycerin/ Electrolytes (Procalamine) 1,000 ml @ 80 mls/hr [id number] IV Last administered on 07/17/16 23:19; Start 07/17/16 at 08:45 Pantoprazole Sodium (Protonix) 40 mg DAILYAC PO Last administered on 07/18/16 07:09; Start 07/17/16 at 09:00 Metronidazole (Flagyl) 250 mg Q8HRS PO Last administered on 07/18/16 07:09; Start 07/17/16 at 09:00 Active Scripts Active Advair 100-50 Diskus (Fluticasone/Salmeterol) 1 Each Disk.w.dev 1 Puff IH BID [Vancomycin Hcl] 125 MG/2.5 ML Solution 125 Mg PO [id number] Reported Lantus Solostar (Insulin Glargine,Hum.rec.anlog) 100 Unit/1 Ml Insuln.pen 18 Unit SQ QHS Zolpidem Tartrate 5 Mg Tablet 5 Mg PO PRN QHS PRN Tamsulosin Hcl 0.4 Mg Cap.er.24h 0.4 Mg PO QHS Simvastatin 40 Mg Tablet 1 Tab PO QHS Potassium Chloride 10 Meq Capsule.er 10 Meq PO DAILY Losartan Potassium 50 Mg Tablet 50 Mg PO HS Lorazepam 0.5 Mg Tablet 0.5 Mg PO PRN Q6HRS PRN Lasix (Furosemide) 40 Mg Tablet 40 Mg PO DAILY Humulin R (Insulin Regular, Human) 100 Unit/1 Ml Vial 100 Unit SQ TIDAC Humulin N (Nph, Human Insulin Isophane) 100 Unit/1 Ml Vial 100 Unit SQ DAILYBFRLUN Humulin N (Nph, Human Insulin Isophane) 100 Unit/1 Ml Vial 100 Unit SQ DAILYBFRSUP Eliquis (Apixaban) 5 Mg Tablet 5 Mg PO BID Vitals/I & O Vital Sign - Last 24 Hours 07/17/16 07/17/16 07/17/16 07/17/16 09:01 11:56 12:08 15:21 Temp 98.0 98.0 98.0 98.0 Pulse 74 76 Resp 16 B/P 139/64 125/68 Pulse Ox 97 93 93 93 O2 Delivery Nasal Cannula Nasal Cannula O2 Flow Rate 2.0 2.0 2.0 2.0 07/17/16 07/17/16 07/17/16 07/17/16 16:11 20:00 20:56 21:59 Pulse 76 B/P 125/68 Pulse Ox 93 94 O2 Delivery Nasal Cannula Nasal Cannula O2 Flow Rate 2.0 2.0 2.0 07/17/16 07/18/16 07/18/16 07/18/16 23:16 03:16 07:15 07:46 Temp 96.4 98.2 98.0 96.4 98.2 98.0 Pulse 74 48 71 Resp 16 18 18 B/P 148/73 147/63 92/54 Pulse Ox 93 94 97 O2 Delivery Nasal Cannula Nasal Cannula Nasal Cannula Nasal Cannula O2 Flow Rate 2.5 2.0 2.0 2.0 Intake and Output 07/17/16 07/17/16 07/18/16 15:00 23:00 07:00 Output Total 450 ml 725 ml Balance -450 ml -725 ml Nutrition Consultation Dietary Evaluation: Recommendations by RD: Increase Calorie Intake, Protein supplementation Comments: Changed diet to cardiac/ADA Added boost pudding BID - 240kcal and 7g protein per serving - watch blood glucose Rec. MVI and 500mg vit c BID to aid wound healing Expected Outcomes/Goals: to meet >75% est nutr needs Malnutrition Findings: Weight Status: Obese AUBRIE BLANDON MD Jul 18, 2016 08:41
[2016-07-18] MEDS: MUPIROCIN 2 % NASAL OINTMENT 22GM TUBE. NS SCH ×2 (09:00→20:35)
[2016-07-18] MEDS: predniSONE 20 MG TABLET PO SCH (09:00)
[2016-07-18] MEDS: NYSTATIN TOPICAL POWDER 15GM BOTTLE. TP SCH ×2 (09:00→20:35)
[2016-07-18] MEDS ORDERED: BENZOCAINE/MENTHOL LOZENGE. PO PRN (09:00)
[2016-07-18] MEDS: BENZOCAINE/MENTHOL LOZENGE. PO PRN ×3 (09:14→20:37)
[2016-07-18 11:15] VITALS: BP 146/71
--- NOTE | 2016-07-18 11:46 | RAD ---
Abdomen series, 2 views, 07/18/2016: History: Follow-up ileus Comparison is made to yesterday's study at 9:20 AM. An NG tube is in place with its tip lying in the proximal aspect of the stomach. Gaseous distention of the stomach has resolved. There is gas in large and small bowel in a nonspecific pattern. No free air is seen in the abdomen. Scattered vascular calcifications are present. 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 Moderate degenerative changes are evident in the spine. There is blunting of the lateral costophrenic angles bilaterally compatible with a small amount pleural fluid. IMPRESSION: 1. The NG tube extends into the proximal aspect of the stomach. 3. No acute abdominal abnormality is detected. 3. Small bilateral pleural effusions
[2016-07-18 15:15] VITALS: BP 139/70
[2016-07-18] MEDS: ANTI-COAG MONITOR BY PHARMACY. MC PRN (16:32)
[2016-07-18] MEDS: VANCOMYCIN PER PHARMACY MC PRN (17:23)
[2016-07-18] MEDS: AMINO AC 3%/ELECTROLYTE/GLYCER 1,000 ML IV SCH ×2 (18:11→22:15)
[2016-07-18 19:05] VITALS: BP 136/66
[2016-07-18] MEDS: LOSARTAN POTASSIUM 50 MG TABLET. PO SCH (20:36)
[2016-07-18] MEDS: SIMVASTATIN 40 MG TABLET. PO SCH (20:36)
[2016-07-18] MEDS: TAMSULOSIN 0.4 MG CAP.ER.24H. PO SCH (20:36)
[2016-07-18] MEDS: oxyCODONE/APAP 5/325 1 TAB TABLET PO PRN (20:37)
[2016-07-18] MEDS: INSULIN DETEMIR 300 UNITS/3 ML INSULN.PEN. SQ SCH (20:59)
[2016-07-18 23:37] VITALS: BP 132/62
[2016-07-19 03:49] VITALS: BP 135/67
[2016-07-19] MEDS: VANCOMYCIN 1.5 GM in IV NORMAL SALINE 500ML BAG 500 ML IV SCH ×2 (03:54→14:03)
[2016-07-19] MEDS: PIPERACILLIN/TAZOBACTAM 4.5 GM in IV NORMAL SALINE 100ML 100 ML IV SCH ×5 (05:53→17:22)
[2016-07-19] MEDS: metroNIDAZOLE 250 MG TABLET PO SCH ×3 (05:53→20:50)
[2016-07-19 05:56] LABS: BASO # 0.1 x10^3/uL (0.0-0.2); BASO % 1 % (0-3); EOS % 2 % (0-3); HEMATOCRIT 31.5 % (39.0-53.0); HEMOGLOBIN 9.4 g/dL (13.0-17.5); LYMPH % 8 % (24-48); MEAN CORPUSCULAR HEMOGLOBIN 23 pg (25-35); MEAN CORPUSCULAR HGB CONC 30 g/dL (31-37); MEAN CORPUSCULAR VOLUME 76 fL (79-100); MONO % 7 % (0-9); NEUT % 82 % (31-73); PLATELET COUNT 259 x10^3/uL (140-400); RED BLOOD COUNT 4.15 x10^6/uL (4.30-5.70); RED CELL DISTRIBUTION WIDTH 25.3 % (11.5-14.5); WHITE BLOOD COUNT 11.9 x10^3/uL (4.0-11.0)
[2016-07-19 06:37] LABS: ALBUMIN 1.6 g/dL (3.4-5.0); ALBUMIN/GLOBULIN RATIO 0.5 (1.0-1.7); CALCIUM 7.4 mg/dL (8.5-10.1); CREATININE 0.9 mg/dL (0.7-1.3); GFR 82.3; POTASSIUM 3.4 mmol/L (3.5-5.1); TOTAL BILIRUBIN 0.4 mg/dL (0.2-1.0); TOTAL PROTEIN 4.9 g/dL (6.4-8.2)
[2016-07-19 07:00] VITALS: BP 137/65
[2016-07-19] MEDS: FUROSEMIDE 40 MG/4 ML VIAL. IVP SCH (07:33)
[2016-07-19] MEDS: PANTOPRAZOLE 40 MG TABLET.DR. PO SCH (07:33)
[2016-07-19] MEDS: ASCORBIC ACID 500 MG TABLET PO SCH ×2 (07:33→20:49)
[2016-07-19] MEDS: POTASSIUM CHLORIDE 10 MEQ TABLET.ER. PO SCH (07:33)
[2016-07-19] MEDS: oxyCODONE/APAP 5/325 1 TAB TABLET PO PRN ×2 (07:33→20:50)
[2016-07-19] MEDS: predniSONE 20 MG TABLET PO SCH (07:34)
[2016-07-19] MEDS: APIXABAN 5 MG TABLET. PO SCH ×2 (07:34→20:49)
[2016-07-19] MEDS: MULTIVITAMIN with MINERAL TABLET. PO SCH (07:34)
[2016-07-19] MEDS: INSULIN ASPART 300 UNITS/3 ML INSULN.PEN SQ SCH ×3 (07:37→17:00)
[2016-07-19] MEDS: BUDESONIDE 0.5 MG/2 ML NEBU. NEB SCH ×2 (08:02→20:02)
[2016-07-19] MEDS: IPRATRPIUM/ALBUTEROL 0.5/2.5MG 3 ML NEBU. NEB SCH ×4 (08:02→20:02)
--- NOTE | 2016-07-19 08:03 | PDOC ---
SUBJECTIVE Subjective No complaints. Tolerating the NG tube. Denies any nausea or vomiting. Voiding okay. Denies any abdominal pain. Breathing is doing okay. Occasional minimal cough. OBJECTIVE Vital Signs Vital Signs Date Time Temp Pulse Resp B/P Pulse Ox O2 Delivery O2 Flow Rate FiO2 07/19/16 07:33 Room Air 07/19/16 03:49 97.5 60 18 135/67 93 Nasal Cannula 2.0 97.5 07/18/16 23:37 98.0 70 18 132/62 94 Nasal Cannula 2.0 98.0 07/18/16 21:37 20 94 Nasal Cannula 2.0 07/18/16 20:37 20 94 Nasal Cannula 2.0 07/18/16 20:36 54 139/70 07/18/16 20:00 Nasal Cannula 2.0 07/18/16 19:41 94 Nasal Cannula 2.0 07/18/16 19:38 94 Nasal Cannula 2.0 07/18/16 19:05 97.7 55 20 136/66 93 Nasal Cannula 2.0 97.7 07/18/16 16:32 Nasal Cannula 2.0 07/18/16 15:15 97.6 54 18 139/70 95 Nasal Cannula 2.0 97.6 07/18/16 11:15 98.1 57 16 146/71 95 Nasal Cannula 2.0 98.1 I & O Intake and Output 07/19/16 07:00 Intake Total 1000 ml Output Total 1500 ml Balance -500 ml Intake Oral 1000 ml Output Urine Total 1500 ml # Voids 7 PHYSICAL EXAM Physical Exam General: No acute distress. Laying in bed with nasal cannula oxygen Mental status: Alert and appears at baseline Chest: Decreased air movement throughout. Crackles at the bilateral bases. CV: Normal rate. Regular rhythm. No murmur. Abdomen: Decreased bowel sounds. Soft. Not distended. No tenderness. No guarding. No rebound. Extremities: No lower extremity edema. Lower extremities have dressings on the feet. ASSESSMENT/PLAN Assessment/Plan 1. HCAP: Pneumonia is most likely due to aspiration but he was in the senior care facility. Appears to be improving clinically. Continue antibiotics. Will transition to oral antibiotics at time of discharge. 2. Anemia, chronic: Likely due to poor nutritional status and chronic disease. Stable. 3. Bilateral heel pressure sores with cellulitis: Continue wound care treatment and antibiotics. 4. CHF: Continue Lasix. 5. Diabetes mellitus type 2: Continue current medications. 6. Moderate to severe protein malnutrition: Nutrition all evaluation and treatment per their recommendations. 7. Hypertension: Stable 8. COPD: Probably contributing to above respiratory difficulties. Continue breathing treatments. Taper steroids at discharge. 9. PAD: Continue current medications. 10. Ileus versus gastroparesis: Clamp NG tube today. See how he does. Can remove NG tube and begin oral nutrition in the morning if he tolerates the nasal gastric tube clamped through the day. 11. Dementia: Stable. 11. Disposition: Try to find placement for the patient is likely not able to be taken care of at home unless he receives significant help from his significant other. Ideally be senior care for wound care but may ultimately need to be a [facility]. Problems: COMMENT Lab Laboratory Tests Test 07/18/16 11:02 07/18/16 16:29 07/19/16 05:40 Glucose (Fingerstick) 139mg/dL (70-99) 158mg/dL (70-99) White Blood Count 11.9x10^3/uL (4.0-11.0) Red Blood Count 4.15x10^6/uL (4.30-5.70) Hemoglobin 9.4g/dL (13.0-17.5) Hematocrit 31.5% (39.0-53.0) Mean Corpuscular Volume 76fL (79-100) Mean Corpuscular Hemoglobin 23pg (25-35) Mean Corpuscular Hemoglobin Concent 30g/dL (31-37) Red Cell Distribution Width 25.3% (11.5-14.5) Platelet Count 259x10^3/uL (140-400) Neutrophils (%) (Auto) 82% (31-73) Lymphocytes (%) (Auto) 8% (24-48) Monocytes (%) (Auto) 7% (0-9) Eosinophils (%) (Auto) 2% (0-3) Basophils (%) (Auto) 1% (0-3) Neutrophils # (Auto) 9.7x10^3uL (1.8-7.7) Lymphocytes # (Auto) 1.0x10^3/uL (1.0-4.8) Monocytes # (Auto) 0.9x10^3/uL (0.0-1.1) Eosinophils # (Auto) 0.3x10^3/uL (0.0-0.7) Basophils # (Auto) 0.1x10^3/uL (0.0-0.2) Sodium Level 141mmol/L (136-145) Potassium Level 3.4mmol/L (3.5-5.1) Chloride Level 104mmol/L (98-107) Carbon Dioxide Level 29mmol/L (21-32) Anion Gap 8 (6-14) Blood Urea Nitrogen 19mg/dL (8-26) Creatinine 0.9mg/dL (0.7-1.3) Estimated GFR (Cockcroft-Gault) 82.3 BUN/Creatinine Ratio 21 (6-20) Glucose Level 99mg/dL (70-99) Calcium Level 7.4mg/dL (8.5-10.1) Total Bilirubin 0.4mg/dL (0.2-1.0) Aspartate Amino Transf (AST/SGOT) 14U/L (15-37) Alanine Aminotransferase (ALT/SGPT) 14U/L (16-63) Alkaline Phosphatase 75U/L (46-116) Total Protein 4.9g/dL (6.4-8.2) Albumin 1.6g/dL (3.4-5.0) Albumin/Globulin Ratio 0.5 (1.0-1.7) SAMI SALMON MD Jul 19, 2016 08:02
[2016-07-19] MEDS: NYSTATIN TOPICAL POWDER 15GM BOTTLE. TP SCH ×2 (08:50→20:50)
[2016-07-19] MEDS: MUPIROCIN 2 % NASAL OINTMENT 22GM TUBE. NS SCH ×2 (08:50→20:46)
[2016-07-19 11:00] VITALS: BP 147/59
[2016-07-19] MEDS: AMINO AC 3%/ELECTROLYTE/GLYCER 1,000 ML IV SCH (11:47)
[2016-07-19] MEDS: VANCOMYCIN PER PHARMACY MC PRN (13:27)
[2016-07-19 14:33] VITALS: BP 132/62
[2016-07-19 19:00] VITALS: BP 142/71
[2016-07-19] MEDS: TAMSULOSIN 0.4 MG CAP.ER.24H. PO SCH (20:49)
[2016-07-19] MEDS: SIMVASTATIN 40 MG TABLET. PO SCH (20:49)
[2016-07-19] MEDS: LOSARTAN POTASSIUM 50 MG TABLET. PO SCH (20:49)
[2016-07-19] MEDS: INSULIN DETEMIR 300 UNITS/3 ML INSULN.PEN. SQ SCH (20:58)
[2016-07-19 23:00] VITALS: BP 148/77
[2016-07-20] MEDS: PIPERACILLIN/TAZOBACTAM 4.5 GM in IV NORMAL SALINE 100ML 100 ML IV SCH ×3 (01:04→12:09)
[2016-07-20 02:58] VITALS: BP 134/61
[2016-07-20] MEDS: AMINO AC 3%/ELECTROLYTE/GLYCER 1,000 ML IV SCH ×2 (03:57→11:45)
[2016-07-20] MEDS: VANCOMYCIN 1.5 GM in IV NORMAL SALINE 500ML BAG 500 ML IV SCH (03:58)
[2016-07-20] MEDS: metroNIDAZOLE 250 MG TABLET PO SCH (06:16)
[2016-07-20 07:00] VITALS: BP 135/74
[2016-07-20] MEDS: INSULIN ASPART 300 UNITS/3 ML INSULN.PEN SQ SCH ×3 (08:00→16:46)
[2016-07-20] MEDS: PANTOPRAZOLE 40 MG TABLET.DR. PO SCH (08:11)
[2016-07-20] MEDS: oxyCODONE/APAP 5/325 1 TAB TABLET PO PRN (08:11)
[2016-07-20] MEDS: POTASSIUM CHLORIDE 10 MEQ TABLET.ER. PO SCH (08:11)
[2016-07-20] MEDS: APIXABAN 5 MG TABLET. PO SCH ×2 (08:11→21:09)
[2016-07-20] MEDS: ASCORBIC ACID 500 MG TABLET PO SCH ×2 (08:11→21:08)
[2016-07-20] MEDS: MULTIVITAMIN with MINERAL TABLET. PO SCH (08:11)
[2016-07-20] MEDS: predniSONE 20 MG TABLET PO SCH (08:12)
[2016-07-20] MEDS: FUROSEMIDE 40 MG/4 ML VIAL. IVP SCH (08:12)
[2016-07-20] MEDS: MUPIROCIN 2 % NASAL OINTMENT 22GM TUBE. NS SCH (08:13)
[2016-07-20] MEDS: NYSTATIN TOPICAL POWDER 15GM BOTTLE. TP SCH ×2 (08:14→21:00)
[2016-07-20] MEDS: IPRATRPIUM/ALBUTEROL 0.5/2.5MG 3 ML NEBU. NEB SCH ×4 (08:35→20:26)
[2016-07-20] MEDS: BUDESONIDE 0.5 MG/2 ML NEBU. NEB SCH ×2 (08:36→20:26)
--- NOTE | 2016-07-20 09:56 | PDOC ---
SUBJECTIVE Subjective Wants to eat. Denies any problems with clear liquids last evening. Not feeling bloated. No increased shortness of breath. Doesn't recall if he's had a bowel movement. Voiding okay. Denies any abdominal pain. No leg pain. OBJECTIVE Vital Signs Vital Signs Date Time Temp Pulse Resp B/P Pulse Ox O2 Delivery O2 Flow Rate FiO2 07/20/16 08:36 98 Nasal Cannula 2.0 07/20/16 08:11 Room Air 07/20/16 08:00 Nasal Cannula 2.0 07/20/16 02:58 97.7 51 20 134/61 93 Nasal Cannula 2.5 97.7 07/19/16 23:00 97.5 77 20 148/77 94 Nasal Cannula 2.5 97.5 07/19/16 21:56 18 92 Nasal Cannula 2.0 07/19/16 20:50 18 92 Nasal Cannula 2.0 07/19/16 20:49 63 132/62 07/19/16 20:03 Room Air 07/19/16 20:00 Nasal Cannula 2.0 07/19/16 19:00 97.7 73 20 142/71 90 Nasal Cannula 2.5 97.7 07/19/16 14:33 97.6 63 20 132/62 92 Nasal Cannula 2.0 97.6 07/19/16 11:51 Nasal Cannula 2.0 07/19/16 11:00 97.6 59 20 147/59 92 Nasal Cannula 2.0 97.6 I & O Intake and Output 07/20/16 07:00 Intake Total 2 ml Output Total 1395 ml Balance -1393 ml Intake Oral 2 ml Output Urine Total 1395 ml # Voids 23 # Bowel Movements 1 PHYSICAL EXAM Physical Exam General: No acute distress. Laying in bed with nasal cannula oxygen Mental status: Alert and appears at baseline Chest: Decreased air movement throughout. Crackles at the bilateral bases. CV: Normal rate. Regular rhythm. No murmur. Abdomen: Decreased bowel sounds. Soft. Not distended. No tenderness. No guarding. No rebound. Extremities: No lower extremity edema. Lower extremities with Tubigrip's ASSESSMENT/PLAN Assessment/Plan 1. HCAP: Pneumonia is most likely due to aspiration but he was in the [facility] facility. Appears to be improving clinically. Continue antibiotics. 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 We'll use Augmentin to cover for aspiration and also to help cover for his cellulitis with the lower extremities. 2. Anemia, chronic: Likely due to poor nutritional status and chronic disease. Stable. 3. Bilateral heel pressure sores with cellulitis: Continue wound care treatment and antibiotics as above 4. CHF: Continue Lasix, changed oral. 5. Diabetes mellitus type 2: Continue current medications. 6. Moderate to severe protein malnutrition: Nutrition evaluation and treatment per their recommendations. 7. Hypertension: Stable 8. COPD: Probably contributing to above respiratory difficulties. Continue breathing treatments. Begin steroid taper 9. PAD: Continue current medications. 10. Ileus versus gastroparesis: NG tube came out accidentally yesterday. Tolerated clears last night. Advance diet today. Check KUB later today. Continue TPN today to see if he tolerates oral nutrition. 11. Dementia: Stable. 11. Disposition: Try to find placement for the patient is likely not able to be taken care of at home unless he receives significant help from his significant other. Ideally be [facility] for wound care, physical therapy but may ultimately need to be a [facility]. Plan for possible discharge tomorrow. Problems: COMMENT Lab Laboratory Tests Test 07/19/16 10:49 07/19/16 17:11 07/19/16 20:47 Glucose (Fingerstick) 101mg/dL (70-99) 115mg/dL (70-99) 176mg/dL (70-99) SAMI SALMON MD Jul 20, 2016 09:56
[2016-07-20] MEDS ORDERED: MAGNESIUM HYDROXIDE 2,400 MG/30 ML ORAL.SUSP. PO PRN (10:00)
[2016-07-20] MEDS ORDERED: MAGNESIUM HYDROXIDE 2,400 MG/30 ML ORAL.SUSP. PO ONE (10:30)
[2016-07-20 11:00] VITALS: BP 147/80
[2016-07-20] MEDS: POLYETHYLENE GLYCOL 3350 17 GM PACKET. PO SCH (12:09)
[2016-07-20] MEDS: VANCOMYCIN PER PHARMACY MC PRN (13:31)
[2016-07-20] MEDS: ANTI-COAG MONITOR BY PHARMACY. MC PRN (13:33)
[2016-07-20] MEDS: FUROSEMIDE 40 MG TABLET. PO SCH (14:11)
[2016-07-20] MEDS: AMOXICILLIN/K CLAV 875/125MG TABLET. PO SCH ×2 (14:27→21:08)
[2016-07-20 15:00] VITALS: BP 139/75
--- NOTE | 2016-07-20 15:28 | RAD ---
Indication follow-up gastric distention and ileus. Supine films of the abdomen were obtained. Note is made of an examination 2 days previously at which time a nasogastric tube is in the stomach. There are probable small pleural effusions. The stomach is moderately distended with gas. The abdominal gas pattern has a nonobstructive appearance. There are degenerative changes in the lumbar spine. IMPRESSION: Moderate gastric distention
[2016-07-20 19:00] VITALS: BP 154/70
[2016-07-20] MEDS: TAMSULOSIN 0.4 MG CAP.ER.24H. PO SCH (21:08)
[2016-07-20] MEDS: SIMVASTATIN 40 MG TABLET. PO SCH (21:09)
[2016-07-20] MEDS: LOSARTAN POTASSIUM 50 MG TABLET. PO SCH (21:09)
[2016-07-20] MEDS: INSULIN DETEMIR 300 UNITS/3 ML INSULN.PEN. SQ SCH (21:15)
[2016-07-20] MEDS: ZOLPIDEM 5 MG TABLET. PO PRN (22:27)
[2016-07-20 22:53] VITALS: BP 135/59
[2016-07-21] MEDS: AMINO AC 3%/ELECTROLYTE/GLYCER 1,000 ML IV SCH ×3 (00:15→22:28)
[2016-07-21 07:00] VITALS: BP 144/63
[2016-07-21] MEDS: BUDESONIDE 0.5 MG/2 ML NEBU. NEB SCH ×2 (07:47→19:51)
[2016-07-21] MEDS: IPRATRPIUM/ALBUTEROL 0.5/2.5MG 3 ML NEBU. NEB SCH ×4 (07:47→19:51)
--- NOTE | 2016-07-21 08:20 | PDOC ---
SUBJECTIVE Subjective Had several bowel movements yesterday. Feels better less bloated.. Tolerated his oral nutrition yesterday without any problem. No emesis. Breathing is doing okay. Minimal cough. No increased shortness of breath. OBJECTIVE Vital Signs Vital Signs Date Time Temp Pulse Resp B/P Pulse Ox O2 Delivery O2 Flow Rate FiO2 07/20/16 22:53 98.1 78 20 135/59 92 Nasal Cannula 2.0 98.1 07/20/16 21:09 66 154/70 07/20/16 20:28 91 Nasal Cannula 2.0 07/20/16 20:28 91 Nasal Cannula 2.0 07/20/16 20:11 Nasal Cannula 2.0 07/20/16 19:00 98.1 66 154/70 91 Nasal Cannula 2.0 98.1 07/20/16 15:24 96 Nasal Cannula 2.0 07/20/16 15:00 97.5 71 20 139/75 92 Nasal Cannula 2.0 97.5 07/20/16 12:17 95 Nasal Cannula 2.0 07/20/16 11:00 97.6 60 19 147/80 92 Nasal Cannula 2.0 97.6 07/20/16 08:36 98 Nasal Cannula 2.0 I & O Intake and Output 07/21/16 07:00 Intake Total 2260 ml Output Total 1250 ml Balance 1010 ml Intake Oral 1260 ml IV Total 1000 ml Output Urine Total 1250 ml # Voids 1 # Bowel Movements 4 PHYSICAL EXAM Physical Exam General: No acute distress. Laying in bed with nasal cannula oxygen Mental status: Alert and appears at baseline Chest: Decreased air movement throughout. Crackles at the bilateral bases. CV: Normal rate. Regular rhythm. No murmur. Abdomen: Occasional bowel sounds. Soft. Not distended. No tenderness. No guarding. No rebound. Extremities: No lower extremity edema. Lower extremities with Tubigrip's ASSESSMENT/PLAN Assessment/Plan 1. HCAP: Pneumonia is most likely due to aspiration but he was in the shelter facility. Appears to be improving clinically. Continue antibiotics. Changed to Augmentin to cover both possible aspiration pneumonia and ulcer on the lower extremity in a diabetic. 2. Anemia, chronic: Likely due to poor nutritional status and chronic disease. Stable. 3. Bilateral heel pressure sores with cellulitis: Continue wound care treatment and antibiotics as above 4. CHF: Continue Lasix, changed to oral. 5. Diabetes mellitus type 2: Continue current medications. 6. Moderate to severe protein malnutrition: Nutrition evaluation and treatment per their recommendations. We'll discontinue the TPN today. 7. Hypertension: Stable 8. COPD: Probably contributing to above respiratory difficulties but stable and improved overall. Continue breathing treatments. Begin steroid taper 9. PAD: Continue current medications. 10. Ileus versus gastroparesis: KUB yesterday showed some gastric distention. There is before he had his bowel movements. We'll see if his KUB looks better today after several bowel movements. If he still has gastric distention and then we'll consult GI. If it is improved then he could go to shelter today. 11. Dementia: Stable. 11. Disposition: Except for the shelter facility. Choices been made. Will transfer today if he is gastric distention is improved. Problems: COMMENT Lab Laboratory Tests Test 07/20/16 12:09 07/20/16 16:30 07/20/16 20:50 07/21/16 07:05 Glucose (Fingerstick) 123mg/dL (70-99) 281mg/dL (70-99) 287mg/dL (70-99) 187mg/dL (70-99) SAMI SALMON MD Jul 21, 2016 08:20
[2016-07-21] MEDS: NYSTATIN TOPICAL POWDER 15GM BOTTLE. TP SCH ×2 (09:00→21:00)
[2016-07-21] MEDS: POLYETHYLENE GLYCOL 3350 17 GM PACKET. PO SCH (09:00)
[2016-07-21] MEDS: AMOXICILLIN/K CLAV 875/125MG TABLET. PO SCH ×2 (09:13→21:00)
[2016-07-21] MEDS: MULTIVITAMIN with MINERAL TABLET. PO SCH (09:13)
[2016-07-21] MEDS: PANTOPRAZOLE 40 MG TABLET.DR. PO SCH (09:13)
[2016-07-21] MEDS: FUROSEMIDE 40 MG TABLET. PO SCH (09:13)
[2016-07-21] MEDS: ASCORBIC ACID 500 MG TABLET PO SCH ×2 (09:13→21:00)
[2016-07-21] MEDS: APIXABAN 5 MG TABLET. PO SCH ×2 (09:13→21:00)
[2016-07-21] MEDS: predniSONE 20 MG TABLET PO SCH (09:13)
[2016-07-21] MEDS: POTASSIUM CHLORIDE 10 MEQ TABLET.ER. PO SCH (09:16)
[2016-07-21] MEDS: INSULIN ASPART 300 UNITS/3 ML INSULN.PEN SQ SCH ×3 (09:22→16:07)
[2016-07-21 11:00] VITALS: BP 126/54
--- NOTE | 2016-07-21 11:07 | RAD ---
Indication follow-up ileus. KUB was obtained and is compared to a study one day earlier. There has not been a significant change. Moderately distended stomach, with gas, persists and appears similar. Very slight dilatation of large bowel loops is additionally noted. IMPRESSION: No significant change. Moderate gastric distention of the stomach is again noted
[2016-07-21 15:00] VITALS: BP 137/90
--- NOTE | 2016-07-21 15:14 | PDOC2 ---
GI CONSULT Reason For Consult: Gastric distention, ?gastroparesis HPI: HPI: 75 y/o male known to GI service, last seen for anemia. On this occasion admitted w/ HCAP, also had some n/v and abd distention requiring NG tube placement w/ PPN. NG now removed, tolerating diet w/o n/v or abd pain. No constipation or diarrhea (last BM this afternoon). Does feel bloated, no triggering or alleviating factors. No GERD symptoms, is on PPI. GI consult requested on this occasion re: gastric distention on imaging as below. Per RN, talk of DC to SNU today. No previous EGD or colonoscopy, previously recommended for anemia (last admission 05/2016) after rehab and improvement of pulm status. PMH: PMH: DM, DVT, C Diff, OA, chronic anemia, CHF, PAD s/p angioplasty, dementia, hip surgery, SBO w/ foreign body s/p resection, back surgery, cataract removal FH: Family History: No pertinent hx Social History: ALCOHOL: none Drugs: None ROS: GEN: Denies fevers, chills, sweats HEENT: Denies blurred vision, sore throat CV: Denies chest pain RESP: +SOA +cough GI: Per HPI : Denies hematuria, dysuria ENDO: Denies weight changes NEURO: Denies confusion, dizziness MSK: +weakness SKIN: Denies jaundice, pruritus VItals: Vitals: Vital Signs Date Time Temp Pulse Resp B/P Pulse Ox O2 Delivery O2 Flow Rate FiO2 07/21/16 12:07 92 Nasal Cannula 2.0 07/21/16 11:00 97.1 57 20 126/54 97.1 Labs: Labs: Laboratory Tests Test 07/20/16 16:30 07/20/16 20:50 07/21/16 07:05 07/21/16 11:14 Glucose (Fingerstick) 281mg/dL (70-99) 287mg/dL (70-99) 187mg/dL (70-99) 198mg/dL (70-99) Allergies: Coded Allergies: I S O L A T I O N *CONTACT* (Verified Allergy, Unknown, 07/17/16) mrsa No Known Medication Allergies (Verified Allergy, Unknown, 07/17/16) Medications: Current Medications Medications (Trade) Dose Ordered Sig/[place] Route PRN Reason Start Time Stop Time Status Last Admin Dose Admin Prednisone (Prednisone) 40 mg DAILY PO 07/21/16 09:00 07/21/16 09:13 Imaging: Imaging: KUB 07/21/16 IMPRESSION: No significant change. Moderate gastric distention of the stomach is again noted. Reviewed other KUBs in chart. PE: GEN: NAD, was asleep HEENT: atraumatic LUNGS: clear anteriorly, nasal cannula HEART: RRR ABD: BS+, soft, non-distended, non-tender EXTREMITY: BLE wrapped NEURO/PSYCH: A & O 3 A/P: A/P: Bloating w/ abnormal abd x-ray -denies abd pain, is stooling -no aggravating/alleviating factors N/v - resolved HCAP -plans for SNU on DC Chronic anemia - stable -no previous EGD/colonoscopy -on PPI -- Symptom-shrestha has improved, imaging remains abnormal. D/w Dr. Adams - increased risk for aspiration w/ distended stomach. Would make NPO, replace NG to LIS, check KUB in a.m. Previously discussed EGD/colonoscopy for anemia when pulm status improved. ? ulcer - continue PPI FRANCISCO SENIOR Jul 21, 2016 15:14
--- NOTE | 2016-07-21 16:48 | RAD ---
Portable abdomen, 07/21/2016: History: Check NG tube placement Comparison is made to the study of earlier the same day. An NG tube has been inserted extending into the distal body of the stomach. There has been interval decompression of the distended stomach. The gas pattern in the upper abdomen is unremarkable. There are mild bibasilar opacities suggesting infiltrate and/or pleural fluid. IMPRESSION: Satisfactory position of the NG tube extending into the distal body of the stomach.
[2016-07-21 19:00] VITALS: BP 150/70
[2016-07-21] MEDS ORDERED: ALBUTEROL SULFATE 2.5 MG/3 ML NEBU. NEB PRN (20:00)
[2016-07-21] MEDS: SIMVASTATIN 40 MG TABLET. PO SCH (21:00)
[2016-07-21] MEDS: LOSARTAN POTASSIUM 50 MG TABLET. PO SCH (21:00)
[2016-07-21] MEDS: TAMSULOSIN 0.4 MG CAP.ER.24H. PO SCH (21:00)
[2016-07-21] MEDS: INSULIN DETEMIR 300 UNITS/3 ML INSULN.PEN. SQ SCH (21:32)
[2016-07-21 23:00] VITALS: BP 161/64
[2016-07-22 03:00] VITALS: BP 162/59
[2016-07-22 07:00] VITALS: BP 144/69
[2016-07-22] MEDS: PANTOPRAZOLE 40 MG TABLET.DR. PO SCH (07:30)
[2016-07-22] MEDS: POTASSIUM CHLORIDE 10 MEQ TABLET.ER. PO SCH (08:00)
[2016-07-22] MEDS: INSULIN ASPART 300 UNITS/3 ML INSULN.PEN SQ SCH ×3 (08:00→16:25)
[2016-07-22] MEDS: BUDESONIDE 0.5 MG/2 ML NEBU. NEB SCH ×2 (08:13→20:04)
[2016-07-22] MEDS: IPRATRPIUM/ALBUTEROL 0.5/2.5MG 3 ML NEBU. NEB SCH ×4 (08:13→20:04)
[2016-07-22] MEDS: MULTIVITAMIN with MINERAL TABLET. PO SCH (09:00)
[2016-07-22] MEDS: POLYETHYLENE GLYCOL 3350 17 GM PACKET. PO SCH (09:00)
[2016-07-22] MEDS: predniSONE 20 MG TABLET PO SCH (09:00)
[2016-07-22] MEDS: FUROSEMIDE 40 MG TABLET. PO SCH (09:00)
[2016-07-22] MEDS: ASCORBIC ACID 500 MG TABLET PO SCH ×2 (09:00→21:05)
[2016-07-22] MEDS: APIXABAN 5 MG TABLET. PO SCH ×2 (09:00→21:05)
[2016-07-22] MEDS: AMOXICILLIN/K CLAV 875/125MG TABLET. PO SCH (09:00)
[2016-07-22] MEDS: NYSTATIN TOPICAL POWDER 15GM BOTTLE. TP SCH ×2 (09:00→21:00)
--- NOTE | 2016-07-22 09:41 | RAD ---
AP abdomen radiograph 07/22/2016 Clinical history: Gastric distention An AP portable supine digital radiograph of the abdomen was obtained. Comparison study is dated 07/21/2016. The patient is status post left MIKAYLA. The tip of the NG tube extends to overlie the antrum of the stomach/first portion of the duodenum. Mild air distention of both small and large bowel loops is seen, unchanged. This has not significantly changed. Atherosclerotic calcification of the abdominal aorta and its branches is noted. The osseous structures are unchanged. Impression: Air distention of both small and large bowel loops, unchanged.
[2016-07-22] MEDS: AMINO AC 3%/ELECTROLYTE/GLYCER 1,000 ML IV SCH (10:45)
[2016-07-22 10:51] VITALS: BP 158/61
[2016-07-22] MEDS ORDERED: ENALAPRILAT 1.25 MG/ML VIAL. IV PRN (12:00)
--- NOTE | 2016-07-22 12:06 | PDOC ---
PROGRESS NOTES Subjective Subjective Patient does not like NG tube. Denies abdominal pain. Can't remember if he had bowel movements yesterday (4 charted). Objective Objective Vital Signs Date Time Temp Pulse Resp B/P Pulse Ox O2 Delivery O2 Flow Rate FiO2 07/22/16 10:51 97.7 58 18 158/61 92 Nasal Cannula 2.0 97.7 Intake and Output 07/22/16 07:00 Intake Total 1200 ml Output Total 325 ml Balance 875 ml Intake Oral 1200 ml Output Urine Total 325 ml # Voids 6 # Bowel Movements 4 Physical Exam Abdomen: Soft, No tenderness, Other (BS present) Heart: Regular rate Extremities: Other (mild chronic edema bilateral LE's) General: Alert, No acute distress Lungs: Clear to auscultation Assessment Assessment Problems Medical Problems: (1) Anemia Status: Acute (2) Cellulitis Status: Acute (3) HCAP (healthcare-associated pneumonia) Status: Acute (4) Severe protein-calorie malnutrition Status: Acute Plan Plan of Care 1. Ileus vs gastroparesis - patient had NG tube replaced yesterday per GI recommendations as KUB showed significant gastric distension. This has resolved on KUB today but some degree of distension is seen in small and large intestines. Trial of clamping tube today, continue tx as per GI. TPN resumed while NPO. 2. pneumonia - resume Zosyn while NPO. 3. DM2 - fairly well controlled, continue insulins. 4. HTN - po meds on hold, BP only mildly elevated presently. Prn ordered. 5. COPD - stable, continue nebs and O2. 6. dementia - continue supportive care. 7. CHF - stable, change Lasix to IV while NPO to avoid fluid overload. Comment Review of Relevant I have reviewed the following items tenisha (where applicable) has been applied. Labs Laboratory Tests Test 07/20/16 12:09 07/20/16 16:30 07/20/16 20:50 07/21/16 07:05 Glucose (Fingerstick) 123mg/dL (70-99) 281mg/dL (70-99) 287mg/dL (70-99) 187mg/dL (70-99) Test 07/21/16 11:14 07/21/16 15:58 07/21/16 20:50 07/22/16 07:50 Glucose (Fingerstick) 198mg/dL (70-99) 238mg/dL (70-99) 251mg/dL (70-99) 127mg/dL (70-99) Test 07/22/16 11:29 Glucose (Fingerstick) 144mg/dL (70-99) Laboratory Tests Test 07/21/16 15:58 07/21/16 20:50 07/22/16 07:50 07/22/16 11:29 Glucose (Fingerstick) 238mg/dL (70-99) 251mg/dL (70-99) 127mg/dL (70-99) 144mg/dL (70-99) Microbiology 07/13/16 Blood Culture - Final, Complete NO GROWTH AFTER 5 DAYS Medications Current Medications Sodium Chloride (Iv Sodium Chloride 0.9% 1000ml Bag) 1,000 ml @ 100 mls/hr Q10H IV Last administered on 07/13/16 21:40; Start 07/13/16 at 21:30; Stop at 07:29; Status DC Ondansetron HCl 4 mg 4 mg PRN Q8HRS PRN IV NAUSEA/VOMITING; Start 07/13/16 at 23:30; Stop 07/14/16 at 23:29; Status DC Sodium Chloride (Iv Sodium Chloride 0.9% 1000ml Bag) 1,000 ml @ 100 mls/hr Q10H IV Last administered on 07/14/16 21:26; Start 07/13/16 at 23:26; Stop at 23:25; Status DC Acetaminophen (Tylenol) 650 mg PRN Q4HRS PRN PO FEVER Last administered on 07/14 21:24; Start 07/13/16 at 23:30; Stop 07/14/16 at 23:29; Status DC Albuterol/ Ipratropium (Duoneb) 3 ml RTQID NEB Last administered on 07/14/16 11:19; Start 07/14/16 at 08:00; Stop 07/14/16 at 12:35; Status DC Vancomycin HCl (Vanco Per Pharmacy) 1 each PRN DAILY PRN MC SEE COMMENTS Last administered on 07/20/16 13:31; Start 07/13/16 at 23:30; Stop 07/20/16 at 13:48 ; Status DC Piperacillin Sod/ Tazobactam Sod (Zosyn Per Pharmacy) 1 each PRN DAILY PRN MC SEE COMMENTS; Start 07/13/16 at 23:30; Stop 07/20/16 at 13:48; Status DC Levofloxacin/ Dextrose 1 each 1 each PRN DAILY PRN MC SEE COMMENTS; Start 07/13 at 23:30; Stop 07/20/16 at 13:48; Status DC Vancomycin HCl 2 gm/Sodium Chloride 500 ml @ 250 mls/hr 1X ONCE IV Last administered on 07/14/16 03:07; Start 07/14/16 at 00:00; Stop 07/14/16 at 01:59 ; Status DC Piperacillin Sod/ Tazobactam Sod 4.5 gm/Sodium Chloride 100 ml @ 200 mls/hr 1X ONCE IV Last administered on 07/14/16 02:00; Start 07/13/16 at 23:45; Stop 07/14/16 at 00:14; Status DC Levofloxacin/ Dextrose 150 ml @ 100 mls/hr 1X ONCE IV Last administered on 23:43; Start 07/14/16 at 00:30; Stop 07/14/16 at 01:59; Status DC Levofloxacin/ Dextrose 150 ml @ 100 mls/hr Q24H IV Last administered on 23:28; Start 07/14/16 at 23:00; Stop 07/20/16 at 13:28; Status DC Piperacillin Sod/ Tazobactam Sod 4.5 gm/Sodium Chloride 100 ml @ 200 mls/hr Q6HRS IV Last administered on 07/20/16 12:09; Start 07/14/16 at 06:00; Stop at 13:48; Status DC Vancomycin HCl/ Sodium Chloride (Iv Sodium Chloride 0.9% 500ml Bag) 500 ml @ 250 mls/hr Q12H IV Last administered on 07/20/16 03:58; Start 07/14/16 at 15: 00; Stop 07/20/16 at 13:48; Status DC Vancomycin HCl 1 each 1X ONCE MC ; Start 07/15/16 at 14:30; Stop 07/15/16 at 14 :31; Status DC Apixaban (Eliquis) 5 mg BID PO Last administered on 07/21/16 09:13; Start at 09:30 Furosemide (Lasix) 40 mg DAILY PO Last administered on 07/15/16 09:27; Start 07/15/16 at 09:30; Stop 07/16/16 at 09:07; Status DC Insulin Human Regular (Novolin R Vial) 100 unit TIDAC SQ ; Start 07/14/16 at 11: 30; Stop 07/14/16 at 12:04; Status DC Lorazepam (Ativan) 0.5 mg PRN Q6HRS PRN PO ANXIETY / AGITATION Last administered on 07/15/16 01:42; Start 07/14/16 at 09:15 Losartan Potassium (Cozaar) 50 mg HS PO Last administered on 07/20/16 21:09; Start 07/14/16 at 21:00 Simvastatin (Zocor) 40 mg QHS PO Last administered on 07/20/16 21:09; Start at 21:00 Tamsulosin HCl (Flomax) 0.4 mg QHS PO Last administered on 07/20/16 21:08; Start 07/14/16 at 21:00 Zolpidem Tartrate (Ambien) 5 mg PRN QHS PRN PO INSOMNIA Last administered on 22:27; Start 07/14/16 at 09:15 Budesonide (Pulmicort) 0.5 mg RTBID NEB Last administered on 07/22/16 08:13; Start 07/14/16 at 20:00 Non-Formulary Medication 100 unit DAILYBFRLUN SQ ; Start 07/14/16 at 11:30; Stop 07/14/16 at 12:04; Status DC Non-Formulary Medication 100 unit DAILYBFRSUP SQ ; Start 07/14/16 at 17:00; Stop 07/14/16 at 17:00; Status DC Potassium Chloride (Klor-Con) 10 meq DAILYWBKFT PO Last administered on 09:16; Start 07/14/16 at 11:00 Non-Formulary Medication 125 mg [id number] PO ; Start 07/14/16 at 13:00; Stop 07/14 at 13:00; Status DC Albuterol/ Ipratropium (Duoneb) 3 ml RTQID NEB Last administered on 07/22/16 08:13; Start 07/14/16 at 12:00 Insulin Aspart (Novolog) 0-7 UNITS TIDWMEALS SQ Last administered on 07/21/16 16:07; Start 07/14/16 at 12:00 Dextrose (Dextrose 50%-Water Syringe) 12.5 gm PRN Q15MIN PRN IV SEE COMMENTS Last administered on 07/16/16 07:45; Start 07/14/16 at 09:15 Info (Anti-Coagulation Monitoring By Pharmacy) 1 each PRN DAILY PRN MC SEE COMMENTS Last administered on 07/20/16 13:33; Start 07/14/16 at 09:15 Albuterol Sulfate (Ventolin Neb Soln) 2.5 mg RTQID NEB ; Start 07/14/16 at 12:00 ; Stop 07/15/16 at 20:42; Status DC Insulin Detemir (Levemir) 18 units QHS SQ Last administered on 07/15/16 20:47 ; Start 07/14/16 at 21:00; Stop 07/16/16 at 09:04; Status DC Nystatin (Nystop) 1 magda BID TP Last administered on 07/22/16 09:00; Start at 21:00 Multivitamins (Thera M Plus) 1 tab DAILY PO Last administered on 07/21/16 09: 13; Start 07/15/16 at 09:00 Ascorbic Acid (Vitamin C) 500 mg BID PO Last administered on 07/21/16 09:13; Start 07/14/16 at 21:00 Furosemide (Lasix) 20 mg 1X ONCE IVP Last administered on 07/14/16 21:25; Start 07/14/16 at 19:00; Stop 07/14/16 at 19:04; Status DC Oxycodone/ Acetaminophen (Percocet 5/325) 1 tab PRN Q4HRS PRN PO PAIN SEVERE Last administered on 07/20/16 08:11; Start 07/15/16 at 09:30 Morphine Sulfate 2 mg PRN Q2HR PRN IV PAIN Last administered on 07/15/16 09:42 ; Start 07/15/16 at 09:30 Mupirocin (Bactroban) 1 magda BID NS Last administered on 07/20/16 08:13; Start 07/15/16 at 10:00; Stop 07/20/16 at 09:59; Status DC Albuterol Sulfate (Ventolin Neb Soln) 2.5 mg PRN Q4HRS PRN NEB COUGH; Start at 20:00 Insulin Detemir (Levemir) 15 units QHS SQ Last administered on 07/21/16 21:32 ; Start 07/16/16 at 21:00 Prednisone (Prednisone) 50 mg DAILY PO Last administered on 07/20/16 08:12; Start 07/16/16 at 10:00; Stop 07/20/16 at 09:58; Status DC Furosemide (Lasix) 40 mg DAILY IVP Last administered on 07/20/16 08:12; Start 07/16/16 at 09:30; Stop 07/20/16 at 13:48; Status DC Calcium Carbonate/ Glycine 500 mg 500 mg PRN Q3HRS PRN PO INDIGESTION Last administered on 07/17/16 06:24; Start 07/17/16 at 06:30 Amino Acids/ Glycerin/ Electrolytes (Procalamine) 1,000 ml @ 80 mls/hr [id number] IV Last administered on 07/22/16 10:45; Start 07/17/16 at 08:45 Pantoprazole Sodium (Protonix) 40 mg DAILYAC PO Last administered on 07/21/16 09:13; Start 07/17/16 at 09:00 Metronidazole (Flagyl) 250 mg Q8HRS PO Last administered on 07/20/16 06:16; Start 07/17/16 at 09:00; Stop 07/20/16 at 13:48; Status DC Throat Lozenges (Cepacol Sore Throat Lozenge) 1 latesha PRN Q2HRS PRN PO SORE THROAT Last administered on 07/18/16 20:37; Start 07/18/16 at 08:45 Throat Lozenges (Cepacol Sore Throat Lozenge) 1 latesha PRN Q2HRS PRN PO SORE THROAT; Start 07/18/16 at 09:00; Status UNV Vancomycin HCl 1 each 1X ONCE MC ; Start 07/20/16 at 14:30; Stop 07/20/16 at 14 :30; Status DC Prednisone (Prednisone) 40 mg DAILY PO Last administered on 07/21/16 09:13; Start 07/21/16 at 09:00 Polyethylene Glycol (miraLAX PACKET) 17 gm DAILY PO Last administered on 12:09; Start 07/20/16 at 10:30 Magnesium Hydroxide (Milk Of Magnesia) 2,400 mg PRN DAILY PRN PO CONSTIPATION; Start 07/20/16 at 10:00 Magnesium Hydroxide (Milk Of Magnesia) 2,400 mg 1X ONCE PO Last administered on 07/20/16 12:09; Start 07/20/16 at 10:30; Stop 07/20/16 at 10:31; Status DC Levofloxacin (Levaquin) 750 mg QHS PO ; Start 07/20/16 at 21:00; Stop 07/20/16 at 21:00; Status DC Amoxicillin/ Clavulanate Potassium (Augmentin 875/ 125mg) 1 tab BID PO Last administered on 07/21/16 09:13; Start 07/20/16 at 14:30 Furosemide (Lasix) 40 mg DAILY PO Last administered on 07/21/16 09:13; Start 07/20/16 at 14:30 Active Scripts Active Advair 100-50 Diskus (Fluticasone/Salmeterol) 1 Each Disk.w.dev 1 Puff IH BID [Vancomycin Hcl] 125 MG/2.5 ML Solution 125 Mg PO [id number] Reported Lantus Solostar (Insulin Glargine,Hum.rec.anlog) 100 Unit/1 Ml Insuln.pen 18 Unit SQ QHS Zolpidem Tartrate 5 Mg Tablet 5 Mg PO PRN QHS PRN Tamsulosin Hcl 0.4 Mg Cap.er.24h 0.4 Mg PO QHS Simvastatin 40 Mg Tablet 1 Tab PO QHS Potassium Chloride 10 Meq Capsule.er 10 Meq PO DAILY Losartan Potassium 50 Mg Tablet 50 Mg PO HS Lorazepam 0.5 Mg Tablet 0.5 Mg PO PRN Q6HRS PRN Lasix (Furosemide) 40 Mg Tablet 40 Mg PO DAILY Humulin R (Insulin Regular, Human) 100 Unit/1 Ml Vial 100 Unit SQ TIDAC Humulin N (Nph, Human Insulin Isophane) 100 Unit/1 Ml Vial 100 Unit SQ DAILYBFRLUN Humulin N (Nph, Human Insulin Isophane) 100 Unit/1 Ml Vial 100 Unit SQ DAILYBFRSUP Eliquis (Apixaban) 5 Mg Tablet 5 Mg PO BID Vitals/I & O Vital Sign - Last 24 Hours 07/21/16 07/21/16 07/21/16 07/21/16 12:07 15:00 15:30 19:00 Temp 96.8 97.5 96.8 97.5 Pulse 63 74 Resp 20 20 B/P 137/90 150/70 Pulse Ox 92 90 92 O2 Delivery Nasal Cannula Nasal Cannula Nasal Cannula O2 Flow Rate 2.0 2.0 2.0 07/21/16 07/21/16 07/21/16 07/22/16 19:43 19:52 23:00 03:00 Temp 97.9 97.5 97.9 97.5 Pulse 71 60 Resp 16 18 B/P 161/64 162/59 Pulse Ox 94 94 94 O2 Delivery Nasal Cannula Nasal Cannula O2 Flow Rate 2.0 2.0 07/22/16 07/22/16 07/22/16 07/22/16 07:00 08:00 08:14 10:51 Temp 95.5 97.7 95.5 97.7 Pulse 59 58 Resp 16 18 B/P 144/69 158/61 Pulse Ox 95 94 92 O2 Delivery Room Air Nasal Cannula Nasal Cannula Nasal Cannula O2 Flow Rate 2.0 2.0 2.0 Intake and Output 07/21/16 07/21/16 07/22/16 15:00 23:00 07:00 Intake Total 600 ml 600 ml Output Total 125 ml 200 ml Balance 475 ml 600 ml -200 ml Nutrition Consultation Dietary Evaluation: Recommendations by RD: Increase Calorie Intake, Protein supplementation, PPN/ TPN Comments: d/c ppn when diet advanced and tolerated Resume cardiac, ada diet Added boost pudding - 240kcal and 7g protein per serving - watch blood glucose added Arginaid for wound healing Continue MVI and 500mg vit c BID to aid wound healing Expected Outcomes/Goals: to meet >75% est nutr needs Malnutrition Findings: Weight Status: Obese MED BRYAN MD Jul 22, 2016 12:06
--- NOTE | 2016-07-22 12:06 | PDOC ---
Subjective: Subjective: Wants to eat Objective: Vital Signs: Vital Signs Date Time Temp Pulse Resp B/P Pulse Ox O2 Delivery O2 Flow Rate FiO2 07/22/16 10:51 97.7 58 18 158/61 92 Nasal Cannula 2.0 97.7 Labs: Laboratory Tests Test 07/21/16 15:58 07/21/16 20:50 07/22/16 07:50 07/22/16 11:29 Glucose (Fingerstick) 238mg/dL (70-99) 251mg/dL (70-99) 127mg/dL (70-99) 144mg/dL (70-99) Physical Exam: Physical Exam: GEN: NAD HEENT: NGT in place CV: S1S2 without murmurs, rubs, or gallops RESP: CTAB without wheezing, rhonchi, or crackles ABD: decreased bs, SNT/ND Assessment & Plan: Assessment : Pt seen and examined. See full consult on 07/21. A/P: Bloating w/ abnormal abd x-ray -denies abd pain, is stooling -no aggravating/alleviating factors N/v - resolved HCAP -plans for SNU on DC Chronic anemia - stable -no previous EGD/colonoscopy -on PPI -- Symptom-shrestha has improved, imaging remains abnormal. Previously discussed EGD/colonoscopy for anemia when pulm status improved. ? ulcer - continue PPI Plan: Clamp NGT today. Okay to give throat lozenge Problems: TC MIRANDA MD Jul 22, 2016 12:06
[2016-07-22] MEDS: FUROSEMIDE 40 MG/4 ML VIAL. IVP SCH (12:26)
[2016-07-22] MEDS: BENZOCAINE/MENTHOL LOZENGE. PO PRN (12:26)
[2016-07-22] MEDS: PIPERACILLIN/TAZOBACTAM 3.375 GM in IV NORMAL SALINE 50ML 50 ML IV SCH ×2 (12:26→17:36)
[2016-07-22 15:00] VITALS: BP 164/74
[2016-07-22 19:00] VITALS: BP 142/67
[2016-07-22] MEDS: INSULIN DETEMIR 300 UNITS/3 ML INSULN.PEN. SQ SCH (21:04)
[2016-07-22] MEDS: TAMSULOSIN 0.4 MG CAP.ER.24H. PO SCH (21:05)
[2016-07-22] MEDS: LOSARTAN POTASSIUM 50 MG TABLET. PO SCH (21:05)
[2016-07-22] MEDS: SIMVASTATIN 40 MG TABLET. PO SCH (21:05)
[2016-07-22 23:00] VITALS: BP 159/70
[2016-07-23] MEDS: AMINO AC 3%/ELECTROLYTE/GLYCER 1,000 ML IV SCH ×2 (00:14→14:45)
[2016-07-23] MEDS: PIPERACILLIN/TAZOBACTAM 3.375 GM in IV NORMAL SALINE 50ML 50 ML IV SCH ×3 (00:14→11:29)
[2016-07-23 03:13] VITALS: BP 160/71
[2016-07-23 06:16] LABS: CALCIUM 7.8 mg/dL (8.5-10.1); CREATININE 0.8 mg/dL (0.7-1.3); GFR 94.2; POTASSIUM 3.6 mmol/L (3.5-5.1)
[2016-07-23 07:00] VITALS: BP 161/64
[2016-07-23] MEDS: IPRATRPIUM/ALBUTEROL 0.5/2.5MG 3 ML NEBU. NEB SCH ×4 (07:14→19:09)
[2016-07-23] MEDS: BUDESONIDE 0.5 MG/2 ML NEBU. NEB SCH ×2 (07:14→19:09)
[2016-07-23] MEDS: PANTOPRAZOLE 40 MG TABLET.DR. PO SCH (07:30)
[2016-07-23] MEDS: POTASSIUM CHLORIDE 10 MEQ TABLET.ER. PO SCH (07:34)
[2016-07-23] MEDS: APIXABAN 5 MG TABLET. PO SCH ×2 (07:34→20:17)
[2016-07-23] MEDS: INSULIN ASPART 300 UNITS/3 ML INSULN.PEN SQ SCH ×3 (07:34→17:48)
[2016-07-23] MEDS: ASCORBIC ACID 500 MG TABLET PO SCH ×2 (07:35→20:18)
[2016-07-23] MEDS: POLYETHYLENE GLYCOL 3350 17 GM PACKET. PO SCH (07:35)
[2016-07-23] MEDS: MULTIVITAMIN with MINERAL TABLET. PO SCH (07:35)
[2016-07-23] MEDS: predniSONE 20 MG TABLET PO SCH (07:35)
[2016-07-23] MEDS: FUROSEMIDE 40 MG/4 ML VIAL. IVP SCH (08:56)
[2016-07-23] MEDS: NYSTATIN TOPICAL POWDER 15GM BOTTLE. TP SCH ×2 (09:00→20:29)
--- NOTE | 2016-07-23 10:07 | PDOC ---
PROGRESS NOTES Subjective Subjective Patient denies any abdominal pain or nausea. Objective Objective Vital Signs Date Time Temp Pulse Resp B/P Pulse Ox O2 Delivery O2 Flow Rate FiO2 07/23/16 07:14 97 Nasal Cannula 2.0 07/23/16 07:00 96.3 61 22 161/64 96.3 Intake and Output 07/23/16 07:00 Intake Total 0 ml Output Total 3525 ml Balance -3525 ml Intake Oral 0 ml Output Urine Total 3525 ml # Voids 9 # Bowel Movements 3 Physical Exam Abdomen: Normal bowel sounds, Soft, No tenderness Heart: Regular rate Extremities: Other (mild edema bilateral LE's) General: Alert, No acute distress Lungs: Clear to auscultation (anteriorly) Assessment Assessment Problems Medical Problems: (1) Anemia Status: Acute (2) Cellulitis Status: Acute (3) HCAP (healthcare-associated pneumonia) Status: Acute (4) Severe protein-calorie malnutrition Status: Acute Plan Plan of Care 1. Ileus vs gastroparesis - patient had 3 bowel movements yesterday and abdominal exam is WNL today. Tolerating having NG tube clamped. Had KUB today for reevaluation. Await Dr Shook's input, hope to be able to advance diet. Continue TPN while NPO. Electrolytes OK. 2. pneumonia - continue Zosyn while NPO, resume Augmentin when able. 3. HTN - BP a little elevated, continue IV Enalapril prn, resume his usual meds when no longer NPO. 4. CHF - stable, continue Lasix daily. 5. COPD - stable. 6. DM2 - well controlled, continue insulins. Comment Review of Relevant I have reviewed the following items tenisha (where applicable) has been applied. Labs Laboratory Tests Test 07/21/16 11:14 07/21/16 15:58 07/21/16 20:50 07/22/16 07:50 Glucose (Fingerstick) 198mg/dL (70-99) 238mg/dL (70-99) 251mg/dL (70-99) 127mg/dL (70-99) Test 07/22/16 11:29 07/22/16 16:18 07/22/16 20:05 07/23/16 05:35 Glucose (Fingerstick) 144mg/dL (70-99) 183mg/dL (70-99) 190mg/dL (70-99) Sodium Level 140mmol/L (136-145) Potassium Level 3.6mmol/L (3.5-5.1) Chloride Level 104mmol/L (98-107) Carbon Dioxide Level 33mmol/L (21-32) Anion Gap 3 (6-14) Blood Urea Nitrogen 19mg/dL (8-26) Creatinine 0.8mg/dL (0.7-1.3) Estimated GFR (Cockcroft-Gault) 94.2 Glucose Level 135mg/dL (70-99) Calcium Level 7.8mg/dL (8.5-10.1) Test 07/23/16 07:14 Glucose (Fingerstick) 121mg/dL (70-99) Laboratory Tests Test 07/22/16 11:29 07/22/16 16:18 07/22/16 20:05 07/23/16 05:35 Glucose (Fingerstick) 144mg/dL (70-99) 183mg/dL (70-99) 190mg/dL (70-99) Sodium Level 140mmol/L (136-145) Potassium Level 3.6mmol/L (3.5-5.1) Chloride Level 104mmol/L (98-107) Carbon Dioxide Level 33mmol/L (21-32) Anion Gap 3 (6-14) Blood Urea Nitrogen 19mg/dL (8-26) Creatinine 0.8mg/dL (0.7-1.3) Estimated GFR (Cockcroft-Gault) 94.2 Glucose Level 135mg/dL (70-99) Calcium Level 7.8mg/dL (8.5-10.1) Test 07/23/16 07:14 Glucose (Fingerstick) 121mg/dL (70-99) Microbiology 07/13/16 Blood Culture - Final, Complete NO GROWTH AFTER 5 DAYS Medications Current Medications Sodium Chloride (Iv Sodium Chloride 0.9% 1000ml Bag) 1,000 ml @ 100 mls/hr Q10H IV Last administered on 07/13/16t 21:40; Start 07/13/16 at 21:30; Stop at 07:29; Status DC Ondansetron HCl 4 mg 4 mg PRN Q8HRS PRN IV NAUSEA/VOMITING; Start 07/13/16 at 23:30; Stop 07/14/16 at 23:29; Status DC Sodium Chloride (Iv Sodium Chloride 0.9% 1000ml Bag) 1,000 ml @ 100 mls/hr Q10H IV Last administered on 07/14/16 21:26; Start 07/13/16 at 23:26; Stop at 23:25; Status DC Acetaminophen (Tylenol) 650 mg PRN Q4HRS PRN PO FEVER Last administered on 07/14 21:24; Start 07/13/16 at 23:30; Stop 07/14/16 at 23:29; Status DC Albuterol/ Ipratropium (Duoneb) 3 ml RTQID NEB Last administered on 07/14/16 11:19; Start 07/14/16 at 08:00; Stop 07/14/16 at 12:35; Status DC Vancomycin HCl (Vanco Per Pharmacy) 1 each PRN DAILY PRN MC SEE COMMENTS Last administered on 07/20/16 13:31; Start 07/13/16 at 23:30; Stop 07/20/16 at 13:48 ; Status DC Piperacillin Sod/ Tazobactam Sod (Zosyn Per Pharmacy) 1 each PRN DAILY PRN MC SEE COMMENTS; Start 07/13/16 at 23:30; Stop 07/20/16 at 13:48; Status DC Levofloxacin/ Dextrose 1 each 1 each PRN DAILY PRN MC SEE COMMENTS; Start 07/13 at 23:30; Stop 07/20/16 at 13:48; Status DC Vancomycin HCl 2 gm/Sodium Chloride 500 ml @ 250 mls/hr 1X ONCE IV Last administered on 07/14/16 03:07; Start 07/14/16 at 00:00; Stop 07/14/16 at 01:59 ; Status DC Piperacillin Sod/ Tazobactam Sod 4.5 gm/Sodium Chloride 100 ml @ 200 mls/hr 1X ONCE IV Last administered on 07/14/16 02:00; Start 07/13/16 at 23:45; Stop 07/14/16 at 00:14; Status DC Levofloxacin/ Dextrose 150 ml @ 100 mls/hr 1X ONCE IV Last administered on 23:43; Start 07/14/16 at 00:30; Stop 07/14/16 at 01:59; Status DC Levofloxacin/ Dextrose 150 ml @ 100 mls/hr Q24H IV Last administered on 23:28; Start 07/14/16 at 23:00; Stop 07/20/16 at 13:28; Status DC Piperacillin Sod/ Tazobactam Sod 4.5 gm/Sodium Chloride 100 ml @ 200 mls/hr Q6HRS IV Last administered on 07/20/16 12:09; Start 07/14/16 at 06:00; Stop at 13:48; Status DC Vancomycin HCl/ Sodium Chloride (Iv Sodium Chloride 0.9% 500ml Bag) 500 ml @ 250 mls/hr Q12H IV Last administered on 07/20/16 03:58; Start 07/14/16 at 15: 00; Stop 07/20/16 at 13:48; Status DC Vancomycin HCl 1 each 1X ONCE MC ; Start 07/15/16 at 14:30; Stop 07/15/16 at 14 :31; Status DC Apixaban (Eliquis) 5 mg BID PO Last administered on 07/21/16 09:13; Start at 09:30 Furosemide (Lasix) 40 mg DAILY PO Last administered on 07/15/16 09:27; Start 07/15/16 at 09:30; Stop 07/16/16 at 09:07; Status DC Insulin Human Regular (Novolin R Vial) 100 unit TIDAC SQ ; Start 07/14/16 at 11: 30; Stop 07/14/16 at 12:04; Status DC Lorazepam (Ativan) 0.5 mg PRN Q6HRS PRN PO ANXIETY / AGITATION Last administered on 07/15/16 01:42; Start 07/14/16 at 09:15 Losartan Potassium (Cozaar) 50 mg HS PO Last administered on 07/20/16 21:09; Start 07/14/16 at 21:00 Simvastatin (Zocor) 40 mg QHS PO Last administered on 07/20/16 21:09; Start at 21:00 Tamsulosin HCl (Flomax) 0.4 mg QHS PO Last administered on 07/20/16 21:08; Start 07/14/16 at 21:00 Zolpidem Tartrate (Ambien) 5 mg PRN QHS PRN PO INSOMNIA Last administered on 22:27; Start 07/14/16 at 09:15 Budesonide (Pulmicort) 0.5 mg RTBID NEB Last administered on 07/23/16 07:14; Start 07/14/16 at 20:00 Non-Formulary Medication 100 unit DAILYBFRLUN SQ ; Start 07/14/16 at 11:30; Stop 07/14/16 at 12:04; Status DC Non-Formulary Medication 100 unit DAILYBFRSUP SQ ; Start 07/14/16 at 17:00; Stop 07/14/16 at 17:00; Status DC Potassium Chloride (Klor-Con) 10 meq DAILYWBKFT PO Last administered on 09:16; Start 07/14/16 at 11:00 Non-Formulary Medication 125 mg [id number] PO ; Start 07/14/16 at 13:00; Stop 07/14 at 13:00; Status DC Albuterol/ Ipratropium (Duoneb) 3 ml RTQID NEB Last administered on 07/23/16 07:14; Start 07/14/16 at 12:00 Insulin Aspart (Novolog) 0-7 UNITS TIDWMEALS SQ Last administered on 07/21/16 16:07; Start 07/14/16 at 12:00 Dextrose (Dextrose 50%-Water Syringe) 12.5 gm PRN Q15MIN PRN IV SEE COMMENTS Last administered on 07/16/16 07:45; Start 07/14/16 at 09:15 Info (Anti-Coagulation Monitoring By Pharmacy) 1 each PRN DAILY PRN MC SEE COMMENTS Last administered on 07/20/16 13:33; Start 07/14/16 at 09:15 Albuterol Sulfate (Ventolin Neb Soln) 2.5 mg RTQID NEB ; Start 07/14/16 at 12:00 ; Stop 07/15/16 at 20:42; Status DC Insulin Detemir (Levemir) 18 units QHS SQ Last administered on 07/15/16 20:47 ; Start 07/14/16 at 21:00; Stop 07/16/16 at 09:04; Status DC Nystatin (Nystop) 1 magda BID TP Last administered on 07/22/16 21:00; Start at 21:00 Multivitamins (Thera M Plus) 1 tab DAILY PO Last administered on 07/21/16 09: 13; Start 07/15/16 at 09:00 Ascorbic Acid (Vitamin C) 500 mg BID PO Last administered on 07/21/16 09:13; Start 07/14/16 at 21:00 Furosemide (Lasix) 20 mg 1X ONCE IVP Last administered on 07/14/16 21:25; Start 07/14/16 at 19:00; Stop 07/14/16 at 19:04; Status DC Oxycodone/ Acetaminophen (Percocet 5/325) 1 tab PRN Q4HRS PRN PO PAIN SEVERE Last administered on 07/20/16 08:11; Start 07/15/16 at 09:30 Morphine Sulfate 2 mg PRN Q2HR PRN IV PAIN Last administered on 07/15/16 09:42 ; Start 07/15/16 at 09:30 Mupirocin (Bactroban) 1 magda BID NS Last administered on 07/20/16 08:13; Start 07/15/16 at 10:00; Stop 07/20/16 at 09:59; Status DC Albuterol Sulfate (Ventolin Neb Soln) 2.5 mg PRN Q4HRS PRN NEB COUGH; Start at 20:00 Insulin Detemir (Levemir) 15 units QHS SQ Last administered on 07/22/16 21:04 ; Start 07/16/16 at 21:00 Prednisone (Prednisone) 50 mg DAILY PO Last administered on 07/20/16 08:12; Start 07/16/16 at 10:00; Stop 07/20/16 at 09:58; Status DC Furosemide (Lasix) 40 mg DAILY IVP Last administered on 07/20/16 08:12; Start 07/16/16 at 09:30; Stop 07/20/16 at 13:48; Status DC Calcium Carbonate/ Glycine 500 mg 500 mg PRN Q3HRS PRN PO INDIGESTION Last administered on 07/17/16 06:24; Start 07/17/16 at 06:30 Amino Acids/ Glycerin/ Electrolytes (Procalamine) 1,000 ml @ 80 mls/hr [id number] IV Last administered on 07/23/16 00:14; Start 07/17/16 at 08:45 Pantoprazole Sodium (Protonix) 40 mg DAILYAC PO Last administered on 07/21/16 09:13; Start 07/17/16 at 09:00 Metronidazole (Flagyl) 250 mg Q8HRS PO Last administered on 07/20/16 06:16; Start 07/17/16 at 09:00; Stop 07/20/16 at 13:48; Status DC Throat Lozenges (Cepacol Sore Throat Lozenge) 1 latesha PRN Q2HRS PRN PO SORE THROAT Last administered on 07/22/16 12:26; Start 07/18/16 at 08:45 Throat Lozenges (Cepacol Sore Throat Lozenge) 1 latesha PRN Q2HRS PRN PO SORE THROAT; Start 07/18/16 at 09:00; Status UNV Vancomycin HCl 1 each 1X ONCE MC ; Start 07/20/16 at 14:30; Stop 07/20/16 at 14 :30; Status DC Prednisone (Prednisone) 40 mg DAILY PO Last administered on 07/21/16 09:13; Start 07/21/16 at 09:00 Polyethylene Glycol (miraLAX PACKET) 17 gm DAILY PO Last administered on 12:09; Start 07/20/16 at 10:30 Magnesium Hydroxide (Milk Of Magnesia) 2,400 mg PRN DAILY PRN PO CONSTIPATION; Start 07/20/16 at 10:00 Magnesium Hydroxide (Milk Of Magnesia) 2,400 mg 1X ONCE PO Last administered on 07/20/16 12:09; Start 07/20/16 at 10:30; Stop 07/20/16 at 10:31; Status DC Levofloxacin (Levaquin) 750 mg QHS PO ; Start 07/20/16 at 21:00; Stop 07/20/16 at 21:00; Status DC Amoxicillin/ Clavulanate Potassium (Augmentin 875/ 125mg) 1 tab BID PO Last administered on 07/21/16 09:13; Start 07/20/16 at 14:30; Stop 07/22/16 at 12:00 ; Status DC Furosemide 40 mg 40 mg DAILY PO Last administered on 07/21/16 09:13; Start at 14:30; Stop 07/22/16 at 12:08; Status DC Piperacillin Sod/ Tazobactam Sod/ Sodium Chloride (Zosyn/Iv Sodium Chloride 0.9 % 50ml) 50 ml @ 100 mls/hr Q6HRS IV Last administered on 07/23/16 06:08; Start 07/22/16 at 12:00 Furosemide (Lasix) 40 mg DAILY IVP Last administered on 07/23/16 08:56; Start 07/22/16 at 12:00 Enalaprilat (Vasotec) 1.25 mg PRN Q6HRS PRN IV HYPERTENSION, SEE COMMENTS Last administered on 07/22/16 15:12; Start 07/22/16 at 12:00 Active Scripts Active Advair 100-50 Diskus (Fluticasone/Salmeterol) 1 Each Disk.w.dev 1 Puff IH BID [Vancomycin Hcl] 125 MG/2.5 ML Solution 125 Mg PO [id number] Reported Lantus Solostar (Insulin Glargine,Hum.rec.anlog) 100 Unit/1 Ml Insuln.pen 18 Unit SQ QHS Zolpidem Tartrate 5 Mg Tablet 5 Mg PO PRN QHS PRN Tamsulosin Hcl 0.4 Mg Cap.er.24h 0.4 Mg PO QHS Simvastatin 40 Mg Tablet 1 Tab PO QHS Potassium Chloride 10 Meq Capsule.er 10 Meq PO DAILY Losartan Potassium 50 Mg Tablet 50 Mg PO HS Lorazepam 0.5 Mg Tablet 0.5 Mg PO PRN Q6HRS PRN Lasix (Furosemide) 40 Mg Tablet 40 Mg PO DAILY Humulin R (Insulin Regular, Human) 100 Unit/1 Ml Vial 100 Unit SQ TIDAC Humulin N (Nph, Human Insulin Isophane) 100 Unit/1 Ml Vial 100 Unit SQ DAILYBFRLUN Humulin N (Nph, Human Insulin Isophane) 100 Unit/1 Ml Vial 100 Unit SQ DAILYBFRSUP Eliquis (Apixaban) 5 Mg Tablet 5 Mg PO BID Vitals/I & O Vital Sign - Last 24 Hours 07/22/16 07/22/16 07/22/16 07/22/16 10:51 12:04 15:00 15:12 Temp 97.7 97.9 97.7 97.9 Pulse 58 81 81 Resp 18 20 B/P 158/61 164/74 164/74 Pulse Ox 92 94 90 O2 Delivery Nasal Cannula Nasal Cannula Nasal Cannula O2 Flow Rate 2.0 2.0 2.0 07/22/16 07/22/16 07/22/16 07/22/16 15:29 19:00 19:45 20:04 Temp 96.8 96.8 Pulse 65 Resp 20 B/P 142/67 Pulse Ox 94 93 92 O2 Delivery Nasal Cannula Nasal Cannula Nasal Cannula Nasal Cannula O2 Flow Rate 2.0 2.0 2.0 07/22/16 07/22/16 07/23/16 07/23/16 20:06 23:00 03:13 07:00 Temp 96.1 97.5 96.3 96.1 97.5 96.3 Pulse 74 56 61 Resp 20 20 22 B/P 159/70 160/71 161/64 Pulse Ox 92 92 95 97 O2 Delivery Nasal Cannula Nasal Cannula Nasal Cannula Nasal Cannula O2 Flow Rate 2.0 2.0 07/23/16 07:14 Pulse Ox 97 O2 Delivery Nasal Cannula O2 Flow Rate 2.0 Intake and Output 07/22/16 07/22/16 07/23/16 15:00 23:00 07:00 Intake Total 0 ml Output Total 2450 ml 1075 ml Balance -2450 ml -1075 ml Nutrition Consultation Dietary Evaluation: Recommendations by RD: Increase Calorie Intake, Protein supplementation, PPN/ TPN Comments: d/c ppn when diet advanced and tolerated Resume cardiac, ada diet Added boost pudding - 240kcal and 7g protein per serving - watch blood glucose added Arginaid for wound healing Continue MVI and 500mg vit c BID to aid wound healing Expected Outcomes/Goals: to meet >75% est nutr needs Malnutrition Findings: Weight Status: Obese MED BRYAN MD Jul 23, 2016 10:07
[2016-07-23 11:00] VITALS: BP 145/68
--- NOTE | 2016-07-23 11:20 | RAD ---
AP abdomen radiograph 07/23/2016 Clinical history: Abdominal distention. An AP portable supine digital radiograph of the abdomen/pelvis was obtained. Comparison study is dated 07/22/2016. The patient is status post left MIKAYLA. An NG tube is unchanged in position. Air distention of both small and large bowel loops is seen, unchanged. The osseous structures are unchanged. Impression: Air distention of small and large bowel loops is seen, unchanged.
--- NOTE | 2016-07-23 13:50 | PDOC ---
Subjective: Subjective: No abd pain. 3 BMs yesterday Objective: Vital Signs: Vital Signs Date Time Temp Pulse Resp B/P Pulse Ox O2 Delivery O2 Flow Rate FiO2 07/23/16 12:22 91 Nasal Cannula 2.0 07/23/16 11:00 96.1 71 20 145/68 96.1 Labs: Laboratory Tests Test 07/22/16 16:18 07/22/16 20:05 07/23/16 05:35 07/23/16 07:14 Glucose (Fingerstick) 183mg/dL (70-99) 190mg/dL (70-99) 121mg/dL (70-99) Sodium Level 140mmol/L (136-145) Potassium Level 3.6mmol/L (3.5-5.1) Chloride Level 104mmol/L (98-107) Carbon Dioxide Level 33mmol/L (21-32) Anion Gap 3 (6-14) Blood Urea Nitrogen 19mg/dL (8-26) Creatinine 0.8mg/dL (0.7-1.3) Estimated GFR (Cockcroft-Gault) 94.2 Glucose Level 135mg/dL (70-99) Calcium Level 7.8mg/dL (8.5-10.1) Test 07/23/16 11:27 Glucose (Fingerstick) 120mg/dL (70-99) Physical Exam: Physical Exam: GEN: NAD HEENT: NGT in place ABD: NABS, SNT/ND EXT: No edema Assessment & Plan: Assessment : Pt seen and examined. See full consult on 07/21. A/P: Bloating w/ abnormal abd x-ray -denies abd pain, is stooling -no aggravating/alleviating factors N/v - resolved HCAP -plans for SNU on DC Chronic anemia - stable -no previous EGD/colonoscopy -on PPI -- Symptom-shrestha has improved, imaging remains abnormal. Previously discussed EGD/colonoscopy for anemia when pulm status improved. ? ulcer - continue PPI Plan: Star clears. if tolerates, d/c NGT and ADAT Problems: TC MIRANDA MD Jul 23, 2016 13:50
[2016-07-23 15:00] VITALS: BP 142/68
[2016-07-23] MEDS: FUROSEMIDE 40 MG TABLET. PO SCH (15:49)
[2016-07-23 19:00] VITALS: BP 145/60
[2016-07-23] MEDS: ZOLPIDEM 5 MG TABLET. PO PRN (20:17)
[2016-07-23] MEDS: AMOXICILLIN/K CLAV 875/125MG TABLET. PO SCH (20:17)
[2016-07-23] MEDS: TAMSULOSIN 0.4 MG CAP.ER.24H. PO SCH (20:18)
[2016-07-23] MEDS: SIMVASTATIN 40 MG TABLET. PO SCH (20:18)
[2016-07-23] MEDS: LOSARTAN POTASSIUM 50 MG TABLET. PO SCH (20:18)
[2016-07-23] MEDS: INSULIN DETEMIR 300 UNITS/3 ML INSULN.PEN. SQ SCH (20:28)
[2016-07-23 23:00] VITALS: BP 143/67
[2016-07-24 03:00] VITALS: BP 146/58
[2016-07-24 07:00] VITALS: BP 143/87
[2016-07-24] MEDS: INSULIN ASPART 300 UNITS/3 ML INSULN.PEN SQ SCH ×3 (08:00→16:50)
[2016-07-24] MEDS: IPRATRPIUM/ALBUTEROL 0.5/2.5MG 3 ML NEBU. NEB SCH ×4 (08:00→20:54)
[2016-07-24] MEDS: PANTOPRAZOLE 40 MG TABLET.DR. PO SCH (08:05)
[2016-07-24] MEDS: BUDESONIDE 0.5 MG/2 ML NEBU. NEB SCH ×2 (08:09→20:54)
[2016-07-24] MEDS: DEXTROSE 50% 25 GM / 50ML DISP.SYRIN. IV PRN (08:31)
--- NOTE | 2016-07-24 08:31 | PDOC ---
SUBJECTIVE Subjective Denies any shortness of breath. No chest pain. States that he is doing okay with eating. Denies any nausea or vomiting. Doesn't feel bloated. Doesn't remember if he's had bowel movements although he had 3 annotated in the chart yesterday. NG tube is out. OBJECTIVE Vital Signs Vital Signs Date Time Temp Pulse Resp B/P Pulse Ox O2 Delivery O2 Flow Rate FiO2 07/24/16 08:10 94 Nasal Cannula 2.0 07/24/16 03:00 97.8 66 18 146/58 93 Nasal Cannula 2.0 97.8 07/23/16 23:00 97.7 76 18 143/67 92 Nasal Cannula 2.0 97.7 07/23/16 20:18 70 142/68 07/23/16 19:15 Nasal Cannula 2.0 07/23/16 19:10 94 Nasal Cannula 2.0 07/23/16 19:00 96.4 69 18 145/60 93 Nasal Cannula 2.0 96.4 07/23/16 17:00 92 Nasal Cannula 2.0 07/23/16 15:00 97.9 70 20 142/68 93 Nasal Cannula 2.0 97.9 07/23/16 12:22 91 Nasal Cannula 2.0 07/23/16 11:00 96.1 71 20 145/68 92 Nasal Cannula 2.0 96.1 I & O Intake and Output 07/24/16 07:00 Intake Total 50 ml Output Total 1775 ml Balance -1725 ml IV Total 50 ml Output Urine Total 1775 ml # Voids 3 PHYSICAL EXAM Physical Exam General: No acute distress. Laying in bed with nasal cannula oxygen Mental status: Alert and appears at baseline Chest: Decreased air movement throughout. Clear anteriorly with decreased breath sounds especially at the bases laterally. CV: Normal rate. Regular rhythm. No murmur. Abdomen: Occasional bowel sounds. Soft. No significant distention. No tenderness. No guarding. No rebound. Extremities: Lower extremities with wraps on. ASSESSMENT/PLAN Assessment/Plan 1. HCAP: Pneumonia is most likely due to aspiration but he was in the detention facility. Appears to be improving clinically. Continue antibiotics. Placed back on IV antibiotics when he was made NPO. We'll see how he does today with food and then change to oral antibiotics again when decision is made of whether to continue with oral intake. 2. Anemia, chronic: Likely due to poor nutritional status and chronic disease. Stable. 3. Bilateral heel pressure sores with cellulitis: Continue wound care treatment and antibiotics as above 4. CHF: Continue Lasix, changed to IV over the weekend, very changed oral when he is able to tolerate oral nutrition well. 5. Diabetes mellitus type 2: Blood sugar low this morning, probably due to decreased intake. Will decrease Levemir to 10 units. 6. Moderate to severe protein malnutrition: Nutrition evaluation and treatment per their recommendations. TPN while not taking oral nutrition. 7. Hypertension: Stable 8. COPD: Probably contributing to above respiratory difficulties but stable and improved overall. Continue breathing treatments. Continue steroid taper 9. PAD: Continue current medications. 10. Ileus versus gastroparesis: KUB reports noted over the weekend. Had NG tube replaced. Currently NG tube is out. We'll monitor and see how he does with increasing diet. To detention when okay with GI. He has been recommended to have an outpatient EGD and colonoscopy in the future when his respiratory status is stable. 11. Dementia: Stable. 11. Disposition: care home when taking oral nutrition okay and okay with GI. He can do the GI workup as an outpatient. Problems: COMMENT Lab Laboratory Tests Test 07/23/16 11:27 07/23/16 16:45 07/23/16 20:16 Glucose (Fingerstick) 120mg/dL (70-99) 183mg/dL (70-99) 170mg/dL (70-99) SAMI SALMON MD Jul 24, 2016 08:31
[2016-07-24] MEDS: ASCORBIC ACID 500 MG TABLET PO SCH ×2 (09:29→20:38)
[2016-07-24] MEDS: POLYETHYLENE GLYCOL 3350 17 GM PACKET. PO SCH (09:29)
[2016-07-24] MEDS: predniSONE 10 MG TABLET PO SCH (09:29)
[2016-07-24] MEDS: MULTIVITAMIN with MINERAL TABLET. PO SCH (09:30)
[2016-07-24] MEDS: AMOXICILLIN/K CLAV 875/125MG TABLET. PO SCH ×2 (09:30→20:38)
[2016-07-24] MEDS: APIXABAN 5 MG TABLET. PO SCH ×2 (09:30→20:38)
[2016-07-24] MEDS: FUROSEMIDE 40 MG TABLET. PO SCH (09:30)
[2016-07-24] MEDS: POTASSIUM CHLORIDE 10 MEQ TABLET.ER. PO SCH (09:30)
[2016-07-24] MEDS: NYSTATIN TOPICAL POWDER 15GM BOTTLE. TP SCH ×2 (09:31→20:39)
[2016-07-24 11:00] VITALS: BP 133/68
--- NOTE | 2016-07-24 13:36 | PDOC ---
Subjective: Subjective: No GI complaints. Objective: Objective: Reviewed notes. Per RN - eating and stooling w/o issue. Vital Signs: Vital Signs Date Time Temp Pulse Resp B/P Pulse Ox O2 Delivery O2 Flow Rate FiO2 07/24/16 11:57 95 Nasal Cannula 2.0 07/24/16 11:00 97.7 73 16 133/68 97.7 Labs: Laboratory Tests Test 07/23/16 16:45 07/23/16 20:16 07/24/16 08:22 07/24/16 11:11 Glucose (Fingerstick) 183mg/dL (70-99) 170mg/dL (70-99) 54mg/dL (70-99) 126mg/dL (70-99) Imaging: KUB 07/23/16 Impression: Air distention of small and large bowel loops is seen, unchanged. PE: GEN: NAD LUNGS: clear anteriorly HEART: RRR ABD: NABS, S/NT NEURO/PSYCH: A & O 3 A/P: Abnormal abd x-rays - unchaged -had NG over the weekend, now out, tolerating PO w/o n/v, no abd pain, stooling -previously reported "bloating," on Miralax Chronic anemia - stable -no previous EGD/colonoscopy -on PPI -- Reviewed w/ Dr. Adams - will check upper GI w/ SBFT. FRANCISCO SENIOR Jul 24, 2016 13:36
[2016-07-24 15:00] VITALS: BP 150/66
[2016-07-24] MEDS: ANTI-COAG MONITOR BY PHARMACY. MC PRN (16:29)
[2016-07-24 19:45] VITALS: BP 128/56
[2016-07-24] MEDS: ZOLPIDEM 5 MG TABLET. PO PRN (20:38)
[2016-07-24] MEDS: TAMSULOSIN 0.4 MG CAP.ER.24H. PO SCH (20:38)
[2016-07-24] MEDS: SIMVASTATIN 40 MG TABLET. PO SCH (20:38)
[2016-07-24] MEDS: LOSARTAN POTASSIUM 50 MG TABLET. PO SCH (20:39)
[2016-07-24] MEDS: INSULIN DETEMIR 300 UNITS/3 ML INSULN.PEN. SQ SCH (20:45)
[2016-07-24 23:09] VITALS: BP 138/62
[2016-07-25 03:15] VITALS: BP 153/70
[2016-07-25] MEDS ORDERED: BARIUM SULFATE 60% 355 ML SUSP PO ONE ×2 (07:45→09:00)
[2016-07-25] MEDS ORDERED: SIMETHICONE/SOD BICARB/CITRIC ACID PACKET. PO ONE (07:45)
[2016-07-25] MEDS ORDERED: BARIUM SULFATE 340 GM SUSPENSION. PO ONE (07:45)
[2016-07-25] MEDS: BUDESONIDE 0.5 MG/2 ML NEBU. NEB SCH ×3 (08:00→20:47)
[2016-07-25] MEDS: INSULIN ASPART 300 UNITS/3 ML INSULN.PEN SQ SCH ×3 (08:00→17:00)
[2016-07-25] MEDS: APIXABAN 5 MG TABLET. PO SCH ×2 (09:00→21:53)
[2016-07-25] MEDS: IPRATRPIUM/ALBUTEROL 0.5/2.5MG 3 ML NEBU. NEB SCH ×4 (09:00→20:47)
--- NOTE | 2016-07-25 10:58 | PDOC ---
Subjective: Subjective: Out for imaging. Objective: Objective: No GI concerns per RN. Vital Signs: Vital Signs Date Time Temp Pulse Resp B/P Pulse Ox O2 Delivery O2 Flow Rate FiO2 07/25/16 03:15 97.0 60 18 153/70 95 Nasal Cannula 2.0 97.0 Labs: Laboratory Tests Test 07/24/16 11:11 07/24/16 16:43 07/24/16 20:40 Glucose (Fingerstick) 126mg/dL 206mg/dL 336mg/dL PE: no exam A/P: Abnormal abd x-rays, distention -had NG twice during this admission, imaging unchanged, tolerating PO w/o n/v, no abd pain, stooling normally Chronic anemia - stable -no previous EGD/colonoscopy -on PPI -- Await upper GI w/ SBFT. FRANCISCO SENIOR Jul 25, 2016 10:58
[2016-07-25 14:55] VITALS: BP 150/68
--- NOTE | 2016-07-25 14:56 | RAD ---
Upper GI with small bowel follow-through, 07/25/2016: History: Abdominal distention The preliminary abdominal image demonstrates a moderate amount of gas in large and small bowel in a nonspecific pattern. Scattered arterial calcifications are present. 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 There is a mild lumbar scoliosis with moderate multilevel degenerative change. Overhead and spot films were obtained following oral ingestion of liquid barium. 4.6 minutes of fluoroscopy time was utilized. 22 fluoroscopic spot images were recorded. The procedure was performed in the recumbent position due to the patient's poor clinical condition. The swallowing mechanism is intact. There is no obstruction to flow of the barium through the thoracic esophagus. No hiatal hernia or gastroesophageal reflux was demonstrated. No gastric mass is identified. There are numerous diverticula in the duodenum as well as loops of jejunum and ileum. These include 4-5 cm diverticula arising from the second and third portions of the duodenum. The small bowel loops are not dilated. No significant fold thickening is seen. The barium reached the colon at 5 hours. The terminal ileum is unremarkable. IMPRESSION: 1. No significant upper GI abnormality is detected. 2. Numerous moderate sized small bowel diverticula. 3. No current evidence of bowel obstruction.
--- NOTE | 2016-07-25 16:20 | PDOC ---
SUBJECTIVE Subjective No new complaint. Did upper GI with small bowel follow-through. Tolerated that okay. No emesis. No significant abdominal pain. Has been eating and doing okay. Denies any increased shortness of breath. Was seen by wound care and they are planning to try to do debridement of his right heel tomorrow. The left heel still looks pretty dry. OBJECTIVE Vital Signs Vital Signs Date Time Temp Pulse Resp B/P Pulse Ox O2 Delivery O2 Flow Rate FiO2 07/25/16 15:27 95 Nasal Cannula 2.0 07/25/16 14:55 97.5 82 16 150/68 96 Nasal Cannula 3.0 97.5 07/25/16 07:19 Nasal Cannula 2.0 07/25/16 03:15 97.0 60 18 153/70 95 Nasal Cannula 2.0 97.0 07/24/16 23:09 97.0 80 20 138/62 94 Room Air 2.0 97.0 07/24/16 20:59 94 Nasal Cannula 2.0 07/24/16 20:58 94 Nasal Cannula 2.0 07/24/16 20:39 83 128/56 07/24/16 19:45 96.0 83 20 128/56 93 Nasal Cannula 2.0 96.0 07/24/16 19:20 Nasal Cannula 2.0 07/24/16 16:45 94 Nasal Cannula 2.0 I & O Intake and Output 07/25/16 07:00 Intake Total 1800 ml Output Total 1405 ml Balance 395 ml Intake Oral 1800 ml Output Urine Total 1405 ml # Voids 4 # Bowel Movements 7 PHYSICAL EXAM Physical Exam General: No acute distress. Laying in bed with nasal cannula oxygen Mental status: Alert and appears at baseline Chest: Decreased air movement throughout. Clear anteriorly with decreased breath sounds especially at the bases laterally. CV: Normal rate. Regular rhythm. No murmur. Abdomen: Occasional bowel sounds. Soft. No significant distention. No tenderness. No guarding. No rebound. Extremities: Lower extremities with wraps on. ASSESSMENT/PLAN Assessment/Plan 1. HCAP: Pneumonia is most likely due to aspiration but he was in the [facility]. Appears to be improving clinically. Continue antibiotics. Finish antibiotics by mouth. 2. Anemia, chronic: Likely due to poor nutritional status and chronic disease. Stable. 3. Bilateral heel pressure sores with cellulitis: Spoke with wound care. They planned right heel debridement hopefully tomorrow morning. No debridement on the left heel. Could go to [facility] tomorrow afternoon for continued wound care, physical therapy 4. CHF: Continue Lasix, changed to IV over the weekend, very changed oral when he is able to tolerate oral nutrition well. 5. Diabetes mellitus type 2: Blood sugar low this morning, probably due to decreased intake. Will decrease Levemir to 10 units. 6. Moderate to severe protein malnutrition: Nutrition evaluation and treatment per their recommendations. 7. Hypertension: Stable 8. COPD: Probably contributing to above respiratory difficulties but stable and improved overall. Continue breathing treatments. Continue steroid taper 9. PAD: Continue current medications. 10. Ileus versus gastroparesis: Small bowel follow-through today did not show any significant abnormality. Will defer to GI whether any further workup is needed. If none is needed and he is able to eat then plan for discharge tomorrow. 11. Dementia: Stable. 11. Disposition: prison when taking oral nutrition okay and okay with GI. He can do further GI workup as an outpatient if indicated further recommendations or completely while he is still in the hospital. If no further GI plans than look at discharge for tomorrow. Problems: COMMENT Lab Laboratory Tests Test 07/24/16 16:43 07/24/16 20:40 07/25/16 14:52 Glucose (Fingerstick) 206mg/dL (70-99) 336mg/dL (70-99) 114mg/dL (70-99) SAMI SALMON MD Jul 25, 2016 16:20
[2016-07-25] MEDS: ANTI-COAG MONITOR BY PHARMACY. MC PRN (17:02)
[2016-07-25] MEDS: AMOXICILLIN/K CLAV 875/125MG TABLET. PO SCH ×2 (17:06→21:53)
[2016-07-25] MEDS: POTASSIUM CHLORIDE 10 MEQ TABLET.ER. PO SCH (17:07)
[2016-07-25] MEDS: ASCORBIC ACID 500 MG TABLET PO SCH ×2 (17:07→21:53)
[2016-07-25] MEDS: MULTIVITAMIN with MINERAL TABLET. PO SCH (17:07)
[2016-07-25] MEDS: PANTOPRAZOLE 40 MG TABLET.DR. PO SCH (17:07)
[2016-07-25] MEDS: FUROSEMIDE 40 MG TABLET. PO SCH (17:07)
[2016-07-25] MEDS: POLYETHYLENE GLYCOL 3350 17 GM PACKET. PO SCH (17:08)
[2016-07-25] MEDS: NYSTATIN TOPICAL POWDER 15GM BOTTLE. TP SCH ×2 (17:11→21:54)
[2016-07-25] MEDS: predniSONE 10 MG TABLET PO SCH (17:19)
[2016-07-25 19:00] VITALS: BP 153/60
[2016-07-25] MEDS: ZOLPIDEM 5 MG TABLET. PO PRN (21:52)
[2016-07-25] MEDS: LOSARTAN POTASSIUM 50 MG TABLET. PO SCH (21:52)
[2016-07-25] MEDS: SIMVASTATIN 40 MG TABLET. PO SCH (21:53)
[2016-07-25] MEDS: TAMSULOSIN 0.4 MG CAP.ER.24H. PO SCH (21:53)
[2016-07-25] MEDS: INSULIN DETEMIR 300 UNITS/3 ML INSULN.PEN. SQ SCH (21:55)
[2016-07-25 23:00] VITALS: BP 162/63
[2016-07-26 03:00] VITALS: BP 143/75
[2016-07-26 07:40] VITALS: BP 154/77
[2016-07-26] MEDS: BUDESONIDE 0.5 MG/2 ML NEBU. NEB SCH (08:04)
[2016-07-26] MEDS: IPRATRPIUM/ALBUTEROL 0.5/2.5MG 3 ML NEBU. NEB SCH ×3 (08:06→14:46)
[2016-07-26] MEDS: ASCORBIC ACID 500 MG TABLET PO SCH (09:00)
[2016-07-26] MEDS: POLYETHYLENE GLYCOL 3350 17 GM PACKET. PO SCH (09:00)
[2016-07-26] MEDS: MULTIVITAMIN with MINERAL TABLET. PO SCH (09:19)
[2016-07-26] MEDS: PANTOPRAZOLE 40 MG TABLET.DR. PO SCH (09:19)
[2016-07-26] MEDS: AMOXICILLIN/K CLAV 875/125MG TABLET. PO SCH (09:20)
[2016-07-26] MEDS: APIXABAN 5 MG TABLET. PO SCH (09:20)
[2016-07-26] MEDS: POTASSIUM CHLORIDE 10 MEQ TABLET.ER. PO SCH (09:20)
[2016-07-26] MEDS: FUROSEMIDE 40 MG TABLET. PO SCH (09:20)
[2016-07-26] MEDS: predniSONE 10 MG TABLET PO SCH (09:21)
[2016-07-26] MEDS: NYSTATIN TOPICAL POWDER 15GM BOTTLE. TP SCH (09:30)
[2016-07-26] MEDS: INSULIN ASPART 300 UNITS/3 ML INSULN.PEN SQ SCH ×2 (09:33→12:26)
--- NOTE | 2016-07-26 09:53 | PDOC ---
Progress Note-Wound Care SUBJECTIVE Mr. Mcclain presents with bilateral heel ulcers. He has Type II DM well- controlled, and he is mostly bed bound although he can ambulate with the assistance of a walker. OBJECTIVE Vital Signs Vital Signs Date Time Temp Pulse Resp B/P Pulse Ox O2 Delivery O2 Flow Rate FiO2 07/25/16 07:19 Nasal Cannula 2.0 07/25/16 14:55 97.5 82 16 150/68 96 97.5 Vital Signs Date Time Temp Pulse Resp B/P Pulse Ox O2 Delivery O2 Flow Rate FiO2 07/26/16 08:06 96 Nasal Cannula 2.0 07/26/16 07:40 96.1 84 17 154/77 96.1 Physical Exam: Exam: Awake, alert, in NAD HEENT: CN II-XII grossly intact Psych: normal affect Lungs: normal respiratory effort Extremities: Feet and legs are warm and dry. He has moderate bilateral pitting edema. ASSESSMENT Bilateral heel pressure ulcers, unstageable. He will need aggressive off-loading , with wedge or pillows to keep his heels off of the bed surface. Heeling is complicated by his diabetes Problems: (1) Decubitus ulcer, heel, left, unstageable (2) Decubitus ulcer, heel, right, unstageable ROS ROS: Pt denies fever, N/V, diarrhea. WOUND Drainage Amount: Scant Odor: None/Absent Surrounding Tissue Appearance: edematous Wound Description: unstagable Bone/Muscle/Tendon Exposed: No Stage: Unstageable PLAN I sharply debrided the most fluctuant of the eschars, on the lateral right heel , using #15 blade, currette, and pickups. There is thick, gummy slough/fibrin in the base. Predbridement measurements were 2.8, 1.5, 0.1. Postdebridement were 2.6, 1.3, 0.8. We will continue painting the wounds with betadine and keep his heels off of the mattress surface. FRANKO JOHNSON MD Jul 26, 2016 09:53
[2016-07-26 11:45] VITALS: BP 147/70
--- NOTE | 2016-07-26 13:03 | PDOC ---
Subjective: Subjective: Denies GI complaints, admits still feels bloated when asked about this specifically. Objective: Vital Signs: Vital Signs Date Time Temp Pulse Resp B/P Pulse Ox O2 Delivery O2 Flow Rate FiO2 07/26/16 11:45 97.5 81 17 147/70 96 Nasal Cannula 2.0 97.5 Labs: Laboratory Tests Test 07/25/16 14:52 07/25/16 17:05 07/25/16 20:29 07/26/16 08:25 Glucose (Fingerstick) 114mg/dL 163mg/dL 249mg/dL 172mg/dL Imaging: UGI w/ SBFT 07/25/16 IMPRESSION: 1. No significant upper GI abnormality is detected. 2. Numerous moderate sized small bowel diverticula. 3. No current evidence of bowel obstruction. PE: GEN: NAD LUNGS: clear anteriorly HEART: RRR ABD: BS+, soft, non-tender NEURO/PSYCH: A & O 3 A/P: Abnormal abd x-rays, bloating -upper GI w/ SBFT as above, no obstruction -no n/v, abd pain, constipation Chronic anemia - stable -no previous EGD/colonoscopy -on PPI -- Possible DC today - will confirm no more inpt GI workup w/ Dr. Adams. Continue PPI. FRANCISCO SENIOR Jul 26, 2016 13:03
[2016-07-26] MEDS: ANTI-COAG MONITOR BY PHARMACY. MC PRN (15:50)
== END 2016-07-26 15:30 | DRG 166 ==
LOC: ER 20:00 → 5 NORTH 22:46
PROVIDERS: ADMIT Family Medicine; ATTEND Family Medicine
PROC: 0HBMXZZ Excision of Right Foot Skin, External Approach (ICD-10-PCS; principal; 2016-07-26)
DX: J69.0 Pneumonitis due to inhalation of food and vomit (principal); I50.23 Acute on chronic systolic (congestive) heart failure; E43 Unspecified severe protein-calorie malnutrition; J96.00 Acute respiratory failure, unspecified whether with hypoxia or hypercapnia; K56.60 Unspecified intestinal obstruction; K56.7 Ileus, unspecified; L03.115 Cellulitis of right lower limb; L03.116 Cellulitis of left lower limb; D63.8 Anemia in other chronic diseases classified elsewhere; E11.43 Type 2 diabetes mellitus with diabetic autonomic (poly)neuropathy; E11.621 Type 2 diabetes mellitus with foot ulcer; E78.00 Pure hypercholesterolemia, unspecified; E78.5 Hyperlipidemia, unspecified; F03.90 Unspecified dementia, unspecified severity, without behavioral disturbance, psychotic disturbance, mood disturbance, and anxiety; I11.0 Hypertensive heart disease with heart failure; E11.51 Type 2 diabetes mellitus with diabetic peripheral angiopathy without gangrene; J44.9 Chronic obstructive pulmonary disease, unspecified; K31.84 Gastroparesis; K57.10 Diverticulosis of small intestine without perforation or abscess without bleeding; L89.629 Pressure ulcer of left heel, unspecified stage; L89.619 Pressure ulcer of right heel, unspecified stage; R62.7 Adult failure to thrive; Z96.649 Presence of unspecified artificial hip joint; Z90.49 Acquired absence of other specified parts of digestive tract; Z68.34 Body mass index [BMI] 34.0-34.9, adult; Z79.01 Long term (current) use of anticoagulants; Z86.711 Personal history of pulmonary embolism; Z87.891 Personal history of nicotine dependence
CPT/HCPCS: 36415; 71010; 73620; 74000; 74020; 74245; 80048; 80053; 80202; 81001; 82565; 82947; 85007; 85027; 85651; 86140; 87040; 87641; 93005; 94250; 94640; 94760; 96365; 96375; J1815; J1940; J1956; J2270; J2543; J3370; J7030; J7040; J7042; J7512; J7620; 97110; 97116; 97530; 99285-25